=== PATIENT | female | born 1955 | race Hispanic/Latino ===

== ENCOUNTER → 2018-04-04 | Day surgery (SDC) | payer OTHER ==
[2018-04-03 13:42] LABS: BASOPHILS % 0.6 % (0.0-1.0); EOSINOPHILS # (AUTO) 0.2 (0.0-0.4); EOSINOPHILS % 3.4 % (0.0-6.0); HEMATOCRIT 25.2 % (34.2-44.1); HEMOGLOBIN 8.1 g/dL (12.0-16.0); LYMPHOCYTES # (AUTO) 1.6 (1.0-3.2); LYMPHOCYTES % 30.6 % (18.0-39.1); MEAN CORPUSCULAR HEMOGLOBIN 27.6 pg (28-32); MEAN CORPUSCULAR HGB CONC 32.1 g/dL (31-35); MEAN CORPUSCULAR VOLUME 85.7 fL (81-99); MONOCYTES # (AUTO) 0.6 (0.2-0.8); MONOCYTES % 12.1 % (4.4-11.3); NEUTROPHILS # (AUTO) 2.8 (2.1-6.9); NEUTROPHILS % 53.1 % (38.7-80.0); PLATELET COUNT 247 x10e3/uL (140-360); RED BLOOD COUNT 2.94 x10e6/uL (3.6-5.1); RED CELL DISTRIBUTION WIDTH 14.7 % (11.7-14.4)
[~2018-04-04] MED LIST: ARMOUR THYROID60 MG PO; IRON325 M1 PO; LIDOCAINE HCL 2% LOCAL INJ 5 ML SDV VIAL INJ ONE; LISINOPRIL10 MG PO; PROPOFOL IV EMULSION 10 MG/ML 50 ML VIAL ONE; SODIUM BICARBO650 MG PO; SYNTHROID50 MCG PO; VIT B12 INJ
--- OUTSIDE RECORDS SUMMARY | 2018-05-24 01:57 | XMS REPORT ---
Author Author [facility] Address Unknown Phone Unavailable Care Team Providers Care Cofounder Name Role Phone LEXA HERMAN Unavailable Unavailable MARÍA FREEMAN Unavailable Unavailable Problems This patient has no known problems. Allergies, Adverse Reactions, Alerts This patient has no known allergies or adverse reactions. Medications This patient has no known medications. Results Test Description Test Time Test Comments Text Results Atomic Results Result Comments CHEST SINGLE (PORTABLE) 2018-05-22 09:14:00 [place] [address] Patient Name: RENETTA PELAEZ MR #: [id number] : 1955 Age/Sex: 63/F Req #: [id number] Adm Physician: Ordered by: LEXA HERMAN MD Report #: [id number] Location: OR Room/Bed: Procedure: [id number] DX/CHEST SINGLE (PORTABLE) Exam Date: 10/08 Exam Time: 0845 REPORT STATUS: Signed PROCEDURE: A single AP view of the chest. COMPARISON: None. INDICATIONS: STATUS POST PORT-A-CATH PLACEMENT FINDINGS: Lines/ tubes: Left subclavian approach chest port noted with the tip of the catheter overlying the SVC. Lungs: The lungs are well inflated and clear. There is no evidence of pneumonia or pulmonary edema. Pleura: There is no pleural effusion or pneumothorax. Heart and mediastinum: The heart and the mediastinum are unremarkable. Bones: No acute bony abnormality. IMPRESSION: No acute cardiopulmonary disease. Ryder Mackey D.O. Dictated by: Ryder Mackey D.O. on 05/22/2018 at 9: 14 Electronically approved by: Ryder Mackey D.O. on 05/22/2018 at 9: 14 Dictated By: RYDER MACKEY DO 3 Transcribed By: SINAN on 05/22/18913 COPY TO: LEXA HERMAN MD CHEST 2 VIEWS 2018-05-21 17:55:00 [place] [address] Patient Name: RENETTA PELAEZ MR #: [id number] : 1955 Age/Sex: 63/F Req #: [id number] Adm Physician: Ordered by: LEXA HERMAN MD Report #: [id number] Location: OR Room/Bed: __ Procedure: [id number] DX/CHEST 2 VIEWS Exam Date: 05/21/18 Exam Time: 1741 REPORT STATUS: Signed Frontal and lateral views of the chest. HISTORY: Preadmit, Port-A-Cath COMPARISON: Chest radiograph April 19, 2016 DISCUSSION: Lungs: The lungs are well inflated. No evidence of a consolidative pneumonia or pulmonary alveolar edema. Pleura: No pleural effusion or pneumothorax. Heart and mediastinum: The cardiomediastinal silhouette appears unremarkable. Bones: No acute osseous lesion. Other: Metallic clips in the right upper quadrant of the abdomen are compatible with prior cholecystectomy. IMPRESSION: 1. No acute radiographic abnormality. 2. No significant interval change. Signed by: Dr. Anu Ortiz D.O., M.M.M. on 05/21/2018 5:57 PM Dictated By: ANU ORTIZ DO 56 Transcribed By: TUNDE on 05/21/181756 COPY TO: LEXA HERMAN MD OCCULT BLOOD, STOOL 2018-02-06 18:05:00 FECAL OCCULT BLOOD (BEAKER) (test rwix=567) Positive Negative OCCULT BLOOD, [id number] 18:05:00* Test Item Value Reference Range Comments FECAL OCCULT BLOOD (BEAKER) (test onuy=609) Positive Negative U/S, ABDOMINAL, [id number] 13:19:00Reason for Exam:->esrd/kidney transplant evaluationFINAL REPORT Abdominal ultrasound Clinical History: End-stage renal disease, kidney transplant evaluation Comparison: None. Findings: Sonographic evaluation of the the abdomen is performed. The visualized pancreas is unremarkable. The liver is normal in size measuring 11.1 cm in length. The hepatic parenchyma is homogeneous without evidence for focal abnormality. The main portal vein is patent with a diameter of 1.3 cm, within normal limits. The gallbladder there is surgically absent. There is no intra or extrahepatic biliary ductal dilatation. The common bile duct measures 7 mm. The spleen is normal in size measuring 11.0 cm in length and demonstrates an unremarkable sonographic appearance. The right kidney measures 11.0 x 4.9 x 4.8 cm with cortical thickness of 1.4 cm. Cortical echogenicity is mildly increased. The left kidney measures 8.1 x 3.8 x 3.2 cm with cortical thickness of 0.9 cm. Cortical echogenicity is mildly increased. There is no evidence for solid renal mass, hydronephrosis, or shadowing calculi. The visualized portions of the IVC and aorta are within normal limits. There is no ascites or pleural fluid visualized. Impression: Increased cortical echogenicity of the kidneys bilaterally which can be seen in setting of medical renal disease. Otherwise, unremarkable abdominal ultrasound examination. Signed: Mook Gallego Verified Date/Time: 01/31/2018 13: 19:59 Reading Location: [address] Ultrasound Reading Room , CHEST , 2 [id number] 12:45:00Reason for Exam:->esrd/kidney transplant evaluationFINAL REPORT CLINICAL HISTORY: esrd/kidney transplant evaluation TECHNIQUE: 2 views of the chest COMPARISON: None IMPRESSION: There are no focal infiltrates or effusions. The cardiomediastinal silhouette is within normal limits for size. The osseous structures appear intact. Signed: Yo Pace MDReport Verified Date/Time: 01/31/2018 12:45:00 Reading Location: [address] Consult Reading Room W/PLT COUNT & AUTO [id number] 08:16:00* Test Item Value Reference Range Comments WHITE BLOOD CELL COUNT (BEAKER) (test vkle=064) 5.5 K/ L 3.5-10.5 RED BLOOD CELL COUNT (BEAKER) (test wjak=723) 3.15 M/ L 3.93-5.22 HEMOGLOBIN (BEAKER) (test zaqn=220) 8.7 GM/DL 11.2-15.7 HEMATOCRIT (BEAKER) (test dpqb=799) 27.3 % 34.1-44.9 MEAN CORPUSCULAR VOLUME (BEAKER) (test xccx=983) 86.7 fL 79.4-94.8 MEAN CORPUSCULAR HEMOGLOBIN (BEAKER) (test tkco=657) 27.6 pg 25.6-32.2 MEAN CORPUSCULAR HEMOGLOBIN CONC (BEAKER) (test pmap=617) 31.9 GM/DL 32.2- 35.5 RED CELL DISTRIBUTION WIDTH (BEAKER) (test iewa=177) 15.0 % 11.7-14.4 PLATELET COUNT (BEAKER) (test vnch=372) 293 K/CU MM 150-450 MEAN PLATELET VOLUME (BEAKER) (test rrsa=097) 9.9 fL 9.4-12.3 NUCLEATED RED BLOOD CELLS (BEAKER) (test bdti=843) 0 /100 WBC 0-0 NEUTROPHILS RELATIVE PERCENT (BEAKER) (test hprc=890) 63 % LYMPHOCYTES RELATIVE PERCENT (BEAKER) (test mkqr=542) 21 % MONOCYTES RELATIVE PERCENT (BEAKER) (test oqfl=384) 10 % EOSINOPHILS RELATIVE PERCENT (BEAKER) (test dxls=472) 5 % BASOPHILS RELATIVE PERCENT (BEAKER) (test wbet=745) 1 % NEUTROPHILS ABSOLUTE COUNT (BEAKER) (test tcdm=006) 3.43 K/ L 1.56-6.13 LYMPHOCYTES ABSOLUTE COUNT (BEAKER) (test ttan=922) 1.16 K/ L 1.18-3.74 MONOCYTES ABSOLUTE COUNT (BEAKER) (test cbqp=480) 0.53 K/ L 0.24-0.36 EOSINOPHILS ABSOLUTE COUNT (BEAKER) (test cepk=017) 0.28 K/ L 0.04-0.36 BASOPHILS ABSOLUTE COUNT (BEAKER) (test pied=019) 0.04 K/ L 0.01-0.08 IMMATURE GRANULOCYTES-RELATIVE PERCENT (BEAKER) (test pryu=6742) 0 % 0-1 CYTOMEGALOVIRUS ANTIBODY, [id number] 08:35:00* Test Item Value Reference Range Comments CYTOMEGALOVIRUS IGG ANTIBODY (BEAKER) (test ifcr=548) Positive CYTOMEGALOVIRUS ANTIBODY, [id number] 08:35:00* Test Item Value Reference Range Comments CYTOMEGALOVIRUS IGM ANTIBODY (BEAKER) (test xjap=896) Negative EBV-VCA ANTIBODY, [id number] 08:35:00* Test Item Value Reference Range Comments TIGIST-MOLINA VCA IGG (BEAKER) (test ifmf=499) Positive EBV-VCA ANTIBODY, [id number] 08:35:00* Test Item Value Reference Range Comments TIGIST-MOLINA VCA IGM (BEAKER) (test jypm=020) Negative VARICELLA ZOSTER ANTIBODY, [id number] 08:15:00* Test Item Value Reference Range Comments VARICELLA ZOSTER IGG (AL) (BEAKER) (test wnqe=5999) 4.9 Al VARICELLA ZOSTER RESULT INTERPRETATIONS: <=0.8 Al Nonreactive: Presumed non-immune to VZV 0.9-1.0 Al Equivocal >=1.1 Al Reactive: Presumed immune to VZVURINE [id number] 10:23:00* Test Item Value Reference Range Comments CULTURE (BEAKER) (test nskp=3555) No growth [id number] 02:48:00* Test Item Value Reference Range Comments RPR SCREEN (BEAKER) (test mzbk=993) Nonreactive Nonreactive URINALYSIS W/ [id number] 15:37:00* Test Item Value Reference Range Comments COLOR (BEAKER) (test kdbs=396) Light Yellow CLARITY (BEAKER) (test mlco=564) Clear SPECIFIC GRAVITY UA (BEAKER) (test epbt=224) 1.008 1.001-1.035 PH UA (BEAKER) (test xqlq=875) 6.0 5.0-8.0 PROTEIN UA (BEAKER) (test foyc=603) 100 mg/dL Negative GLUCOSE UA (BEAKER) (test vnya=155) 100 mg/dL Negative KETONES UA (BEAKER) (test shyj=883) Negative Negative BILIRUBIN UA (BEAKER) (test obrn=707) Negative Negative BLOOD UA (BEAKER) (test dfvx=446) Trace Negative NITRITE UA (BEAKER) (test plyb=910) Negative Negative LEUKOCYTE ESTERASE UA (BEAKER) (test bddv=111) Negative Negative UROBILINOGEN UA (BEAKER) (test crdl=730) 0.2 mg/dL 0.2-1.0 RBC UA (BEAKER) (test sskd=807) 0 /HPF WBC UA (BEAKER) (test xpae=268) < /HPF MUCUS (BEAKER) (test rbrz=5189) Rare SOURCE(BEAKER) (test wdup=0073) HEMOGLOBIN [id number] 14:30:00* Test Item Value Reference Range Comments HEMOGLOBIN A1C (BEAKER) (test alba=094) 5.0 % 4.3-6.1 HEPATITIS B SURFACE [id number] 14:20:00* Test Item Value Reference Range Comments HEPATITIS B SURFACE ANTIBODY (BEAKER) (test iioe=149) < mIU/mL <8.0 HEPATITIS B SURFACE [id number] 14:16:00* Test Item Value Reference Range Comments HEPATITIS B SURFACE ANTIGEN (2) (BEAKER) (test waxd=2061) Nonreactive Nonreactive HEPATITIS B CORE ANTIBODY, [id number] 14:16:00* Test Item Value Reference Range Comments HEPATITIS B CORE IGM ANTIBODY (BEAKER) (test lsni=354) Nonreactive Nonreactive HEPATITIS C [id number] 14:16:00* Test Item Value Reference Range Comments HEPATITIS C ANTIBODY (BEAKER) (test ixma=859) Nonreactive Nonreactive HIV-1 ANTIGEN WITH HIV-1/2 [id number] 14:16:00* Test Item Value Reference Range Comments HIV-1 ANTIGEN WITH HIV 1\T\2 ANTIBODY (2) (BEAKER) (test uynu=8307) Nonreactive Nonreactive COMPREHENSIVE METABOLIC [id number] 14:06:00* Test Item Value Reference Range Comments TOTAL PROTEIN (BEAKER) (test focf=630) 7.0 gm/dL 6.0-8.3 ALBUMIN (BEAKER) (test rwua=2350) 3.8 g/dL 3.5-5.0 ALKALINE PHOSPHATASE (BEAKER) (test mewx=440) 389 U/L 40-150 BILIRUBIN TOTAL (BEAKER) (test khap=045) 0.4 mg/dL 0.2-1.2 SODIUM (BEAKER) (test agvl=113) 137 meq/L 136-145 POTASSIUM (BEAKER) (test qpdr=552) 3.9 meq/L 3.5-5.1 CHLORIDE (BEAKER) (test rixp=969) 113 meq/L 98-107 CO2 (BEAKER) (test decw=982) 16 meq/L 22-29 BLOOD UREA NITROGEN (BEAKER) (test waec=736) 41 mg/dL 7-21 CREATININE (BEAKER) (test uafy=831) 3.40 mg/dL 0.57-1.25 GLUCOSE RANDOM (BEAKER) (test wjpd=469) 92 mg/dL 70-105 CALCIUM (BEAKER) (test wfkl=317) 9.2 mg/dL 8.4-10.2 AST (SGOT) (BEAKER) (test izdk=991) 29 U/L 5-34 ALT (SGPT) (BEAKER) (test xddl=351) 29 U/L 6-55 EGFR (BEAKER) (test kpqt=6933) 14 mL/min/1.73 sq m ESTIMATED GFR IS NOT ACCURATE CREATININE CLEARANCE IN PREDICTING GLOMERULAR FILTRATION RATE. ESTIMATED GFR IS NOT APPLICABLE FOR DIALYSIS PATIENTS. PTH, [id number] 13:50:00* Test Item Value Reference Range Comments PARATHYROID HORMONE INTACT (BEAKER) (test umkx=437) 1239.1 pg/mL 8.5-72.5 URIC [id number] 13:50:00* Test Item Value Reference Range Comments URIC ACID (BEAKER) (test jbjh=895) 5.7 mg/dL 2.6-7.2 [id number] 13:50:00* Test Item Value Reference Range Comments PHOSPHORUS (BEAKER) (test ejgr=010) 4.5 mg/dL 2.3-4.7 LIPID [id number] 13:50:00* Test Item Value Reference Range Comments TRIGLYCERIDES (BEAKER) (test qgec=519) 107 mg/dL CHOLESTEROL (BEAKER) (test xhih=383) 151 mg/dL HDL CHOLESTEROL (BEAKER) (test rfca=214) 49 mg/dL LDL CHOLESTEROL CALCULATED (BEAKER) (test qkdm=815) 81 mg/dL Triglyceride Reference Range: Low Risk <150 Borderline 150-199 High Risk 200-499 Very High Risk >=500Cholesterol Reference Range: Low Risk <200 Borderline 200-239 High Risk >240HDL Cholesterol Reference Range: Low Risk >=60 High Risk <40LDL Cholesterol Reference Range: Optimal <100 Near Optimal 100-129 Borderline 130-159 High 160-189 Very High >=190 GAMMA GLUTAMYL TRANSFERASE (GGT)2018-01-23 13:50:00* Test Item Value Reference Range Comments GAMMA GLUTAMYL TRANSFERASE (BEAKER) (test podr=353) 162 U/L 9-64 LACTATE DEHYDROGENASE (LDH)2018-01-23 13:50:00* Test Item Value Reference Range Comments LACTATE DEHYDROGENASE (BEAKER) (test dcsw=633) 152 U/L 125-220 [id number] 13:24:00* Test Item Value Reference Range Comments PROTIME (BEAKER) (test zvcw=900) 14.6 seconds 11.7-14.7 INR (BEAKER) (test tbdv=062) 1.1 <=5.9 PARTIAL THROMBOPLASTIN TIME (BEAKER) (test mtsa=215) 33.1 seconds 22.5-36.0 RECOMMENDED COUMADIN/WARFARIN INR THERAPY RANGESSTANDARD DOSE: 2.0 - 3.0 Includes: PROPHYLAXIS for venous thrombosis, systemic embolization; TREATMENT for venous thrombosis and/or pulmonary embolus.HIGH RISK: Target INR is 2.5-3.5 for patients with mechanical heart valves.CBC W/PLT COUNT & AUTO [id number] 13:17:00* Test Item Value Reference Range Comments WHITE BLOOD CELL COUNT (BEAKER) (test ibfl=372) 4.8 K/ L 3.5-10.5 RED BLOOD CELL COUNT (BEAKER) (test ngmm=284) 3.46 M/ L 3.93-5.22 HEMOGLOBIN (BEAKER) (test rzjh=760) 9.4 GM/DL 11.2-15.7 HEMATOCRIT (BEAKER) (test lalp=239) 29.1 % 34.1-44.9 MEAN CORPUSCULAR VOLUME (BEAKER) (test zacy=543) 84.1 fL 79.4-94.8 MEAN CORPUSCULAR HEMOGLOBIN (BEAKER) (test oolb=556) 27.2 pg 25.6-32.2 MEAN CORPUSCULAR HEMOGLOBIN CONC (BEAKER) (test pudk=655) 32.3 GM/DL 32.2- 35.5 RED CELL DISTRIBUTION WIDTH (BEAKER) (test kksk=894) 15.1 % 11.7-14.4 PLATELET COUNT (BEAKER) (test brfx=282) 280 K/CU MM 150-450 MEAN PLATELET VOLUME (BEAKER) (test lpuf=663) 10.7 fL 9.4-12.3 NUCLEATED RED BLOOD CELLS (BEAKER) (test dpkn=809) 0 /100 WBC 0-0 NEUTROPHILS RELATIVE PERCENT (BEAKER) (test ykgz=956) 48 % LYMPHOCYTES RELATIVE PERCENT (BEAKER) (test bkjv=181) 35 % MONOCYTES RELATIVE PERCENT (BEAKER) (test lecs=528) 12 % EOSINOPHILS RELATIVE PERCENT (BEAKER) (test kihg=102) 4 % BASOPHILS RELATIVE PERCENT (BEAKER) (test gzpa=294) 1 % NEUTROPHILS ABSOLUTE COUNT (BEAKER) (test wgui=313) 2.28 K/ L 1.56-6.13 LYMPHOCYTES ABSOLUTE COUNT (BEAKER) (test kkxd=173) 1.69 K/ L 1.18-3.74 MONOCYTES ABSOLUTE COUNT (BEAKER) (test hkyg=513) 0.55 K/ L 0.24-0.36 EOSINOPHILS ABSOLUTE COUNT (BEAKER) (test vsxn=915) 0.20 K/ L 0.04-0.36 BASOPHILS ABSOLUTE COUNT (BEAKER) (test acxr=442) 0.05 K/ L 0.01-0.08 IMMATURE GRANULOCYTES-RELATIVE PERCENT (BEAKER) (test xvpe=5285) 0 % 0-1
--- OUTSIDE RECORDS SUMMARY | 2018-05-24 01:57 | XMS REPORT | Clinical Summary ---
Author Author SUMAN [facility] Address Unknown Phone Unavailable Care Team Providers Care Manager Business Management Name Role Phone PCP Unavailable Allergies Active Allergy Reactions Severity Noted Date Comments Cefazolin In Dextrose Hives 01/11/2018 (Iso-Os) Iodine And Iodide 01/11/2018 Containing Products Hydrocodone-Ibuprofen 01/11/2018 Current Medications Prescription Sig. Disp. Refills Start End Date Status Date levothyroxine (SYNTHROID, levothyroxine 50 mcg Active LEVOTHROID) 50 MCG tablet tablet lisinopril lisinopril 10 mg tablet Active (PRINIVIL,ZESTRIL) 10 MG tablet SODIUM BICARBONATE ORAL Take 20 g by mouth 2 Active (two) times daily . cyanocobalamin (VITAMIN Inject 1,000 mcg Active B-12) 1,000 mcg/mL intramuscularly every 30 injection (thirty) days . Active Problems Problem Noted Date Pre-transplant evaluation for chronic kidney disease 01/23/2018 Encounters Date Type Specialty Care Team Description 2018 Orders Only Transplant Hiren Rosenthal RN Pre-transplant evaluation for end stage renal disease (Primary Dx);ESRD (end stage renal disease) (HCC);Abnormal blood chemistry 02/14/2018 Committee Transplant Hiern Rosenthal RN Review 02/09/2018 Committee Transplant Marilyn Shepherd Review 02/06/2018 Evaluation Transplant Neyda Moya MD 02/06/2018 Ancillary Lab Linda Rogers MD Orders 02/06/2018 Ancillary Lab Linda Rogers MD Orders 02/06/2018 Orders Only Transplant Hepatology Edwin Rodriguez ESRD (end stage renal disease) (HCC);Pre-transplant evaluation for end stage renal disease;Anemia of chronic renal failure, unspecified CKD stage;Abnormal blood chemistry 02/06/2018 Orders Only Transplant Hiren Rosenthal RN ESRD (end stage renal disease) ([facility]) (Primary Dx);Pre-transplant evaluation for end stage renal disease;Anemia of chronic renal failure, unspecified CKD stage;Abnormal blood chemistry 01/31/2018 Hospital Radiology Linda Rogers MD End stage renal disease Encounter ([facility]) (Primary Dx) 01/31/2018 Hospital Radiology Linda Rogers MD ESRD (end stage renal Encounter disease) ([facility]) 01/31/2018 [facility] Cardiology Linda Rogers MD ESRD (end stage renal Encounter disease) ([facility]) 01/31/2018 [facility] Cardiology Linda Rogers MD ESRD (end stage renal Encounter disease) ([facility]) 01/31/2018 Orders Only Lab Linda Rogers MD ESRD (end stage renal disease) ([facility]) 01/31/2018 Orders Only Transplant Mary Cruz RN Pre-transplant evaluation for chronic kidney disease (Primary Dx) 01/31/2018 Orders Only Transplant Linda Rogers MD ESRD (end stage renal disease) ([facility]);Pre-transplant evaluation for chronic kidney disease 01/24/2018 Telephone Transplant Marilyn Shepherd Appointment 01/23/2018 Evaluation Transplant Linda Rogers MD Pre- transplant evaluation Neyda Moya MD for chronic kidney disease (Primary Dx) 01/23/2018 Orders Only Transplant Hepatology Linda Rogers MD ESRD (end stage renal disease) ([facility]) 01/23/2018 Office Visit Transplant Linda Rogers MD Pre- transplant evaluation Mary Cruz RN for chronic kidney disease 01/23/2018 Orders Only Transplant Hiren Rosenthal RN ESRD (end stage renal disease) ([facility]) (Primary Dx) 01/18/2018 Telephone Transplant Chelsea Keller Kidney Transplant Pre-evaluation 01/11/2018 Abstract Transplant Chelsea Keller 01/11/2018 Abstract Transplant Chelsea Keller 01/02/2018 Abstract Transplant Chelsea Keller 12/29/2017 Abstract Transplant Chelsea Keller 12/22/2017 Abstract Transplant Chelsea Keller 12/06/2017 Telephone Transplant Chelsea Keller Kidney Transplant Pre-evaluation 11/03/2017 Abstract Transplant Chelsea Keller 08/28/2017 Telephone Transplant Chelsea Keller Kidney Transplant Pre-evaluation after 04/03/2017 Family History Medical History Relation Name Comments Other Father of accident No Known Problem Mother No Known Problem Sister No Known Problem Sister Hypertension Son No Known Problem Son Relation Name Status Comments Brother Father Mother Alive Sister Alive Sister Alive Son Alive Son Alive Social History Tobacco Use Types Packs/Day Years Used Date Former Smoker Smokeless Tobacco: Never Used Comments: smoked at age 21 to 24 Alcohol Use Drinks/Week oz/Week Comments No Sex Assigned at Date Recorded Not on file Last Filed Vital Signs Vital Sign Reading Time Taken Blood Pressure 132/52 01/31/2018 9:35 AM CDT Pulse 96 01/31/2018 9:35 AM CDT Temperature 36.6 C (97.8 F) 01/23/2018 2:56 PM CDT Respiratory Rate 18 01/31/2018 9:35 AM CDT Oxygen Saturation - - Inhaled Oxygen - - Concentration Weight 51.9 kg (114 lb 6.4 oz) 02/06/2018 12:37 PM CDT Height 154 cm (5' 0.63") 02/06/2018 12:37 PM CDT Body Mass Index 21.88 02/06/2018 12:37 PM CDT Plan of Treatment Health Maintenance Due Date Last Done Comments INFLUENZA VACCINE 05/21/2018 Results * Occult blood, stool (02/06/2018 12:58 PM) Only the most recent of 2 results within the time period is included. Component Value Ref Range Occult blood Positive (A) Negative Specimen Performing Laboratory [place] [address] * TRANSFUSION SERVICE REPORT - SCAN (02/01/2018 5:54 PM) Only the most recent of 2 results within the time period is included. * ECHOCARDIOGRAM REPORT - SCAN (02/01/2018 7:20 AM) Only the most recent of 2 results within the time period is included. * US abdomen complete (01/31/2018 12:25 PM) Specimen Performing Laboratory [employer] Narrative FINAL REPORT Abdominal ultrasound Clinical History:End-stage renal disease, kidney transplant evaluation Comparison: None. [...] unremarkable abdominal ultrasound examination. Signed: Mook Gallego MD Report Verified Date/Time:01/31/2018 13:19:59 Reading Location: [address] Ultrasound Reading Room Procedure Note Interface, External Ris In - 01/31/2018 1:22 PM CDT FINAL REPORT Abdominal ultrasound Clinical History: End-stage renal [...] unremarkable abdominal ultrasound examination. Signed: Mook Gallego MD Report Verified Date/Time: 01/31/2018 13:19:59 Reading Location: [facility] [id number] Ultrasound Reading Room * XR chest 2 views (01/31/2018 11:44 AM) Specimen Performing Laboratory [facility] Narrative FINAL REPORT CLINICAL HISTORY: esrd/kidney transplant evaluation TECHNIQUE: 2 views of the chest COMPARISON: None IMPRESSION: There are no focal infiltrates or effusions. The cardiomediastinal silhouette is within normal limits for size. The osseous structures appear intact. Signed: Yo Osorio MD Report Verified Date/Time:01/31/2018 12:45:00 Reading Location: [facility] C013 Consult Reading Room Procedure Note Interface, External Ris In - 01/31/2018 12:47 PM CDT FINAL REPORT CLINICAL HISTORY: esrd/kidney transplant evaluation TECHNIQUE: 2 views of the chest COMPARISON: None IMPRESSION: There are no focal infiltrates or effusions. The cardiomediastinal silhouette is within normal limits for size. The osseous structures appear intact. Signed: Yo Osorio MD Report Verified Date/Time: 01/31/2018 12:45:00 Reading Location: [facility] C013 Consult Reading Room * Stress Echo With Tracing (01/31/2018 8:53 AM) Component Value Ref Range Ejection Fraction Est EF of >70% Specimen Performing Laboratory [facility] ECHO HEARTLAB [facility] Narrative Stress Echocardiography Report Demographics Patient Name RENETTA GARCIA Date of Study01/31/2018 [id number] Gender Female Visit Number [id number] Race Unknown [id number] Number Number Date of Birth1955 Referring Ken Pizarro Physician Age62 year(s) Bilingual Interpreter Dianne Peres Interpreting Marcella Machado, Physician Fellow BILL Cheema Procedure Type of Study Stress procedure:STRESS(TMT)ECHO W/TMT TRACING (Routine) Indications:CAD. Clinical History CKD, HLD, HTN, HYPOTHYROID Contrast Medium: Definity. Amount - 6 ml Height: 60 inches Weight: 49.9 kg (110 lbs) BSA: 1.45 m^2 BMI: 21.48 kg/m^2 HR: 82 bpm BP: 131/71 mmHg Rest ECG Normal sinus rhythm Standing HR:81 bpmStanding BP:131/71 mmHg Pre-Stress Physical Exam Cardiac auscultation remarkable for normal heart sounds . Stress Stress Type: Pharmacologic Peak HR: 142 bpmHR Response: See below Peak BP: 170/51 mmHgBP Response : See below Predicted HR: 156 bpm HR BP Product : 26888 % of predicted HR: 91 Max Infusion : 20 mcg/kg/min Test Duration: 16:31 min Reason for Termination: Target heart rate Results Global LVEF (rest): Normal (LVEF >50%) Global LVEF (stress): Hyperkinetic (LVEF >70%) ECG No significant ST changes. Arrhythmias No significant rhythm abnormality during stress or recovery. Symptoms No symptoms during stress test. Stress Protocol: Pharmacologic - Dobutamine +--------+------+------+ +------+-----+--------+--+--------+----+------ + !Stage # !Time!Dosage!Other !Dosage!Heart!Blood !CP!Pain !Pain!Pain! !!!!Medication!!Rate ! Pressure!!Location!Type!Action! +--------+------+------+ +------+-----+--------+--+--------+----+------ + !1.0 !3.017 !10.00 !!!125!165/53 !!!!! +--------+------+------+ +------+-----+--------+--+--------+----+------ + !2.0 !1.467 !20.00 !!!142!170/51 !!!!! +--------+------+------+ +------+-----+--------+--+--------+----+------ + !Recovery!16.517!0.00!!!97 !132/52! !!!! +--------+------+------+ +------+-----+--------+--+--------+----+------ + Summary Indications: Pre-surgical evaluation for renal transplant Procedure done: Dobutamine stress echocardiogram. Complications: None Medications: Dobutamine infusion with peak rate of 20 mg/kg/min. ECG: The resting heart rate was 81 bpm. Resting electrocardiogram showed normal sinus rhythm with no ischemic ECG changes. The heart rate increased to 142 bpm which corresponded to 91% maximum predicted heart rate. There were no ischemic ECG changes noted. There were no arrhythmias noted. The blood pressure at baseline was 131/71 mm Hg and nikkie to 170/51 at peak stress. The patient did not develop any significant symptoms. Echocardiogram: Resting echocardiogram showed normal LV systolic function, estimated LVEF of 55%. Normal wall motion. At peak stress, the echocardiogram showed appropriate LV augmentation. Estimated LVEF of >70%. Normal wall motion. Conclusion: Stress was negative for symptoms, ischemic ECG and echocardiogram changes at a diagnostic level of stress. Previous Study No prior studies available for comparison. Signature Procedure Note Interface, External Ris In - 01/31/2018 10:24 PM CDT Stress Echocardiography Report Demographics Patient Name RENETTA GARCIA Date of Study 01/31/2018 Gender Female Visit Number [id number] Race Unknown Room Number Number Date of 1955 Referring Ken Pizarro Physician Age 62 year(s) Bilingual Interpreter Dianne Peres Interpreting Marcella Machado Physician Fellow BILL Cheema Procedure Type of Study Stress procedure:STRESS(TMT)ECHO W/TMT TRACING (Routine) Indications:CAD. Clinical History CKD, HLD, HTN, HYPOTHYROID Contrast Medium: Definity. Amount - 6 ml Height: 60 inches Weight: 49.9 kg (110 lbs) BSA: 1.45 m^2 BMI: 21.48 kg/m^2 HR: 82 bpm BP: 131/71 mmHg Rest ECG Normal sinus rhythm Standing HR:81 bpmStanding BP:131/71 mmHg Pre-Stress Physical Exam Cardiac auscultation remarkable for normal heart sounds . Stress Stress Type: Pharmacologic Peak HR: 142 bpm HR Response: See below Peak BP: 170/51 mmHg BP Response: See below Predicted HR: 156 bpm HR BP Product: 89056 % of predicted HR: 91 Max Infusion: 20 mcg/kg/min Test Duration: 16:31 min Reason for Termination: Target heart rate Results Global LVEF (rest): Normal (LVEF >50%) Global LVEF (stress): Hyperkinetic (LVEF >70%) ECG No significant ST changes. Arrhythmias No significant rhythm abnormality during stress or recovery. Symptoms No symptoms during stress test. Stress Protocol: Pharmacologic - Dobutamine +--------+------+------+ +------+-----+--------+--+--------+----+----- -+ !Stage # !Time !Dosage!Other !Dosage!Heart!Blood !CP!Pain !Pain!Pain ! ! ! ! !Medication! !Rate !Pressure! !Location!Type!Action ! +--------+------+------+ +------+-----+--------+--+--------+----+----- -+ !1.0 !3.017 !10.00 ! ! !125 !165/53 ! ! ! ! ! +--------+------+------+ +------+-----+--------+--+--------+----+----- -+ !2.0 !1.467 !20.00 ! ! !142 !170/51 ! ! ! ! ! +--------+------+------+ +------+-----+--------+--+--------+----+----- -+ !Recovery!16.517!0.00 ! ! !97 !132/52 ! ! ! ! ! +--------+------+------+ +------+-----+--------+--+--------+----+----- -+ Summary Indications: Pre-surgical evaluation for renal transplant Procedure done: Dobutamine stress echocardiogram. Complications: None Medications: Dobutamine infusion with peak rate of 20 mg/kg/min. ECG: The resting heart rate was 81 bpm. Resting electrocardiogram showed normal sinus rhythm with no ischemic ECG changes. The heart rate increased to 142 bpm which corresponded to 91% maximum predicted heart rate. There were no ischemic ECG changes noted. There were no arrhythmias noted. The blood pressure at baseline was 131/71 mm Hg and nikkie to 170/51 at peak stress. The patient did not develop any significant symptoms. Echocardiogram: Resting echocardiogram showed normal LV systolic function, estimated LVEF of 55%. Normal wall motion. At peak stress, the echocardiogram showed appropriate LV augmentation. Estimated LVEF of >70%. Normal wall motion. Conclusion: Stress was negative for symptoms, ischemic ECG and echocardiogram changes at a diagnostic level of stress. Previous Study No prior studies available for comparison. Signature * 2D Echo W/Doppler(CW/PW/Color) (01/31/2018 8:26 AM) Component Value Ref Range Ejection Fraction Specimen Performing Laboratory [facility] ECHO HEARTLAB [facility] Narrative Transthoracic Echocardiography Report (TTE) Demographics Patient Name RENETTA GARCIA Date of Study 01/31/2018 [id number] Gender Female Visit Number [id number] Race Unknown [id number] Number Number Date of Birth1955 Referring Physician Ken Pizarro Age62 year(s) Bilingual Interpreter Dianne Peres [facility]uc[place], MD Physician Fellow BILL Cheema Procedure Type of Study TTE procedure:2DECHO W DOPPLER(CW/PW/COLOR) (Routine) Indications:Acute Chest Pain/ Suspected CAD. Clinical History CKD, HLD, HTN, HYPOTHYROID Height: 60 inches Weight: 49.9 kg (110 lbs) BSA: 1.45 m^2 BMI: 21.48 kg/m^2 HR: 82 bpm BP: 131/77 mmHg Summary 1. The left ventricle is chamber size (by vol index) is normal. No evidence of LV hypertrophy. All of the LV segments contract normally. LVEF by Mcneill's method of disk assessment is normal (60%). Grade 1 diastolic dysfunction (impaired relaxation and low-normal LA pressure). LA size is mildly enlarged (35-41 ml/m2). 2. The right ventricular chamber size and systolic function are within normal limits. RA size is normal. Estimated peak systolic PA pressure is 35-40 mmHg. 3. No significant valvular abnormalities. Previous Study No prior exam available for comparison. Signature Findings Left Ventricle The left ventricle is chamber size (by vol index ) is normal (female - LVED vol - 29-61ml/m2). No evidence of LV hypertrophy. All of the LV segments contract normally . Global LV systolic function normal . LVEF by Mcneill's method of disk assessment is normal (60%) . Grade 1 diastolic dysfunction ( impaired relaxation and low-normal LA pressure). Left AtriumLA size is mildly enlarged (35-41 ml/m2) . Right VentricleThe right ventricular chamber size and systolic function are within normal limits. Right Atrium RA size is normal. Aortic Valve Mild AoV cusp thickening. Mild AoV cusp calcification. No evidence of aortic regurgitation. Normal tri-leaflet Aortic Valve. Mitral Valve Mild MV leaflet thickening. Trace mitral regurgitation. Mild mitral annular calcification. Tricuspid ValveA trace of tricuspid regurgitation. Estimated peak systolic PA pressure is 35-40 mmHg . Peak systolic pressure may be underestimated; partial TR signal. Pulmonic Valve PV is not well visualized; function appears normal by Doppler visualized. AortaAortic root size (SInus of Valsalva diameter) is normal . PericardiumNo significant pericardial effusion is visualized. IVC/SVC/PA/PV/PleuralThe estimated RA pressure by IVC dynamics 5-10mmHg . Chambers/Structures Left Atrium LA Volume: 58.14 ml LA Area: 16.71 cm^2 LA Vol. Index: 40 ml/m^2 Left Ventricle LVIDd: 3.99 cm LVIDs: 2.42 cm LV Septum Diastolic: 1 cm LV PW Diastolic: 0.73 cmLV FS: 39.4 % LVEDV Mcneill's:85.4 ml LVESV Mcneill's:31.5 ml LVEDVI: 59 ml/m^2 LVEF Mcneill's: 63.1 %LVESVI: 22 ml/m^2 LVOT Diameter: 1.87 cm Doppler/Quantitative Measurements Mitral Valve MV Peak E-Wave: 1.12 m/sMV Peak A-Wave: 1.14 m/s E/A Ratio: 0.99 Peak Gradient: 5.06 mmHg MV Gomez. Peak: Tissue Doppler E' Lateral Velocity: 0.12 m/s E/E': 9.31 Aortic Valve Peak Velocity: 1.88 m/sMean Velocity: 1.08 m/s Peak Gradient: 14.1 mmHg Mean Gradient: 5.75 mmHg AV Area (continuity): 1.99 cm^2 AV VTI: 33.92 cm AV DVI: 0.72 LVOT Peak Velocity: 1.29 m/s Peak Gradient: 6.66 mmHg Mean Velocity: 0.84 m/s Mean Gradient: 3.31 mmHg LVOT Diameter: 1.87 cmLVOT VTI: 24.59 cm LVOT Area: 2.75 cm^2LVOT SV:67.5 ml LVOT CO: 5.54 l/min LVOT CI: 3.82 l/min/m^2 Tricuspid Valve TR Velocity: 2.83 m/s TR Gradient: 32.01 mmHg Procedure Note Interface, External Ris In - 01/31/2018 12:58 PM CDT Transthoracic Echocardiography Report (TTE) Demographics Patient Name RENETTA GARCIA Date of Study 01/31/2018 Gender Female Visit Number [id number] Race Unknown Room Number Number Date of 1955 Referring Physician Ken Pizarro Age 62 year(s) Bilingual Interpreter Dianne Peres Interpreting Bassam Zeng MD Physician Fellow BILL Cheema Procedure Type of Study TTE procedure:2DECHO W DOPPLER(CW/PW/COLOR) (Routine) Indications:Acute Chest Pain/ Suspected CAD. Clinical History CKD, HLD, HTN, HYPOTHYROID Height: 60 inches Weight: 49.9 kg (110 lbs) BSA: 1.45 m^2 BMI: 21.48 kg/m^2 HR: 82 bpm BP: 131/77 mmHg Summary 1. The left ventricle is chamber size (by vol index) is normal. No evidence of LV hypertrophy. All of the LV segments contract normally. LVEF by Mcneill's method of disk assessment is normal (60%). Grade 1 diastolic dysfunction (impaired relaxation and low-normal LA pressure). LA size is mildly enlarged (35-41 ml/m2). 2. The right ventricular chamber size and systolic function are within normal limits. RA size is normal. Estimated peak systolic PA pressure is 35-40 mmHg. 3. No significant valvular abnormalities. Previous Study No prior exam available for comparison. Signature Findings Left Ventricle The left ventricle is chamber size (by vol index) is normal (female - LVED vol - 29-61ml/m2). No evidence of LV hypertrophy. All of the LV segments contract normally . Global LV systolic function normal . LVEF by Mcneill's method of disk assessment is normal (60%) . Grade 1 diastolic dysfunction (impaired relaxation and low-normal LA pressure). Left Atrium LA size is mildly enlarged (35-41 ml/m2) . Right Ventricle The right ventricular chamber size and systolic function are within normal limits. Right Atrium RA size is normal. Aortic Valve Mild AoV cusp thickening. Mild AoV cusp calcification. No evidence of aortic regurgitation. Normal tri-leaflet Aortic Valve. Mitral Valve Mild MV leaflet thickening. Trace mitral regurgitation. Mild mitral annular calcification. Tricuspid Valve A trace of tricuspid regurgitation. Estimated peak systolic PA pressure is 35-40 mmHg . Peak systolic pressure may be underestimated; partial TR signal. Pulmonic Valve PV is not well visualized; function appears normal by Doppler visualized. Aorta Aortic root size (SInus of Valsalva diameter) is normal . Pericardium No significant pericardial effusion is visualized. IVC/SVC/PA/PV/Pleural The estimated RA pressure by IVC dynamics 5-10mmHg . Chambers/Structures Left Atrium LA Volume: 58.14 ml LA Area: 16.71 cm^2 LA Vol. Index: 40 ml/m^2 Left Ventricle LVIDd: 3.99 cm LVIDs: 2.42 cm LV Septum Diastolic: 1 cm LV PW Diastolic: 0.73 cm LV FS: 39.4 % LVEDV Mcneill's:85.4 ml LVESV Mcneill's:31.5 ml LVEDVI: 59 ml/m^2 LVEF Mcneill's: 63.1 % LVESVI: 22 ml/m^2 LVOT Diameter: 1.87 cm Doppler/Quantitative Measurements Mitral Valve MV Peak E-Wave: 1.12 m/s MV Peak A-Wave: 1.14 m/s E/A Ratio: 0.99 Peak Gradient: 5.06 mmHg MV Gomez. Peak: Tissue Doppler E' Lateral Velocity: 0.12 m/s E/E': 9.31 Aortic Valve Peak Velocity: 1.88 m/s Mean Velocity: 1.08 m/s Peak Gradient: 14.1 mmHg Mean Gradient: 5.75 mmHg AV Area (continuity): 1.99 cm^2 AV VTI: 33.92 cm AV DVI: 0.72 LVOT Peak Velocity: 1.29 m/s Peak Gradient: 6.66 mmHg Mean Velocity: 0.84 m/s Mean Gradient: 3.31 mmHg LVOT Diameter: 1.87 cm LVOT VTI: 24.59 cm LVOT Area: 2.75 cm^2 LVOT SV:67.5 ml LVOT CO: 5.54 l/min LVOT CI: 3.82 l/min/m^2 Tricuspid Valve TR Velocity: 2.83 m/s TR Gradient: 32.01 mmHg * ECG 12 lead (01/31/2018 8:21 AM) Specimen Performing Laboratory [facility] Narrative Ventricular Rate 82 BPM Atrial Rate 82 BPM P-R Interval 152 ms QRS Duration 84 ms Q-T Interval 376 ms QTC Calculation(Bazett) 439 ms P [place] 66 degrees R [place] 53 degrees T [place] 57 degrees Normal sinus rhythm Normal ECG No previous ECGs available Confirmed by MD LAND JORGE ([id number]) on 01/31/2018 4:25:10 PM Procedure Note Interface, External Ris In - 01/31/2018 4:25 PM CDT Ventricular Rate 82 BPM Atrial Rate 82 BPM P-R Interval 152 ms QRS Duration 84 ms Q-T Interval 376 ms QTC Calculation(Bazett) 439 ms P [place] 66 degrees R [place] 53 degrees T [place] 57 degrees Normal sinus rhythm Normal ECG No previous ECGs available Confirmed by MD LAND JORGE ([id number]) on 01/31/2018 4:25:10 PM * CBC with platelet count + automated diff (01/31/2018 8:12 AM) Only the most recent of 2 results within the time period is included. Component Value Ref Range WBC 5.5 3.5 - 10.5 K/ L RBC 3.15 (L) 3.93 - 5.22 M/ L Hemoglobin 8.7 (L) 11.2 - 15.7 GM/DL Hematocrit 27.3 (L) 34.1 - 44.9 % MCV 86.7 79.4 - 94.8 fL MCH 27.6 25.6 - 32.2 pg MCHC 31.9 (L) 32.2 - 35.5 GM/DL RDW 15.0 (H) 11.7 - 14.4 % Platelets 293 150 - 450 K/CU MM MPV 9.9 9.4 - 12.3 fL nRBC 0 0 - 0 /100 WBC % Neutros 63 % % Lymphs 21 % % Monos 10 % % Eos 5 % % Baso 1 % # Neutros 3.43 1.56 - 6.13 K/ L # Lymphs 1.16 (L) 1.18 - 3.74 K/ L # Monos 0.53 (H) 0.24 - 0.36 K/ L # Eos 0.28 0.04 - 0.36 K/ L # Baso 0.04 0.01 - 0.08 K/ L Immature 0 0 - 1 % Granulocytes-Relative Specimen Performing [place] [address] * CBC with platelet count + automated diff (01/31/2018 8:12 AM) Only the most recent of 2 results within the time period is included. Specimen Performing Laboratory Blood [facility]) Narrative The following orders were created for panel order CBC with platelet count + automated diff. Procedure Abnormality Status --------- - ------ CBC with platelet count ...[[id number]]AbnormalFinal result Please view results for these tests on the individual orders. * Blood typing, automated (01/31/2018 7:58 AM) Component Value Ref Range ABO/RH AUTOMATED (BEAKER) O POSITIVE Specimen Performing Laboratory Blood [address] [address] * Urinalysis, Routine (01/23/2018 12:30 PM) Component Value Ref Range Color, UA Light Yellow Clarity, UA Clear Specific [place], UA 1.008 1.001 - 1.035 pH, UA 6.0 5.0 - 8.0 Protein, UA 100 mg/dL (A) Negative Glucose, UA 100 mg/dL (A) Negative Ketones, UA Negative Negative Bilirubin, UA Negative Negative Blood, UA Trace (A) Negative Nitrite, UA Negative Negative Leukocytes, UA Negative Negative Urobilinogen, UA 0.2 0.2 - 1.0 mg/dL RBC, UA 0 /HPF WBC, UA <1 /HPF Mucus Rare Specimen Source Specimen Performing Laboratory Urine [address] [place] [address] * Urine Culture (01/23/2018 12:30 PM) Component Value Ref Range Result No growth Specimen Performing Laboratory Urine - Urine, [facility] Unspecified Source [address] [place] [address] * Flow PRA Class II with reflex to Antibody Specificity (01/23/2018 12:28 PM) Component Value Ref Range Flow Class II Percent 20 Positive Flow Class Report Comments Specimen Performing Laboratory Blood [facility] [place], MS: [id number], CLIA#[id number] CAP#[id number] [place] [address] * Flow PRA Class I with reflex to Antibody Specificity (01/23/2018 12:28 PM) Component Value Ref Range Flow Class I Percent 53 Positive Flow Class Report Comments Specimen Performing Laboratory Blood [facility], MS: [id number], CLIA#[id number] CAP#[id number] [place] [address] * AB Specificity Class II (01/23/2018 12:28 PM) Component Value Ref Range AB Specificity Class II NO CLASS II ANTIBODY DETECTED WITH MFIs > 4000 AB Specificity Titr Class Report Specimen Performing Laboratory Blood [facility], MS: [id number], CLIA#[id number] CAP#[id number] [place] [address] Narrative Disclaimer: This test was developed and its performance characteristics determined by the [facility]. It has not been cleared or approved by the U.S. Food and Drug Administration. The FDA has determined that such clearance or approval is not necessary. This test is used for clinical purposes. It should not be regarded as investigational or for research. This laboratory is certified under the Clinical Laboratory Improvement Amendments of 1988 (CLIA-88) as qualified to perform high complexity clinical laboratory testing. * AB Specificity Class I (01/23/2018 12:28 PM) Component Value Ref Range AB Specificity Class I NO CLASS I ANTIBODY DETECTED WITH MFIs > 4000 AB Specificity Titr Class Report Specimen Performing Laboratory Blood [facility], MS: [id number], CLIA#[id number] CAP#[id number] [place] [address] Narrative Disclaimer: This test was developed and its performance characteristics determined by the [facility]. It has not been cleared or approved by the U.S. Food and Drug Administration. The FDA has determined that such clearance or approval is not necessary. This test is used for clinical purposes. It should not be regarded as investigational or for research. This laboratory is certified under the Clinical Laboratory Improvement Amendments of 1988 (CLIA-88) as qualified to perform high complexity clinical laboratory testing. * Type and Screen, Automated (01/23/2018 12:28 PM) Component Value Ref Range ABO/RH AUTOMATED (BEAKER) O POSITIVE Ab Scrn NEGATIVE Specimen Performing Laboratory [address] [address] * PT/aPTT (01/23/2018 12:28 PM) Component Value Ref Range Protime 14.6 11.7 - 14.7 seconds INR 1.1 <=5.9 PTT 33.1 22.5 - 36.0 seconds Specimen Performing Laboratory [address] [address] Narrative RECOMMENDED COUMADIN/WARFARIN INR THERAPY RANGES STANDARD DOSE: 2.0 - 3.0 Includes: PROPHYLAXIS for venous thrombosis, systemic embolization; TREATMENT for venous thrombosis and/or pulmonary embolus. HIGH RISK: Target INR is 2.5-3.5 for patients with mechanical heart valves. * HIV-1 Antigen with HIV-1/2 Antibody (01/23/2018 12:28 PM) Component Value Ref Range HIV-1 Antigen with HIV Nonreactive Nonreactive 1&2 Antibody Specimen Performing Laboratory [address] [address] * Hepatitis C Antibody (01/23/2018 12:28 PM) Component Value Ref Range Hepatitis C Ab Nonreactive Nonreactive Specimen Performing Laboratory [address] [address] * Hepatitis B core antibody, IgM (01/23/2018 12:28 PM) Component Value Ref Range Hep B C IgM Nonreactive Nonreactive Specimen Performing Laboratory [address] [address] * Hepatitis B surface antibody (01/23/2018 12:28 PM) Component Value Ref Range Hep B S Ab <8.0 <8.0 mIU/mL Specimen Performing Laboratory Blood [facility] [address] * Hepatitis B surface antigen (01/23/2018 12:28 PM) Component Value Ref Range hepatitis B Surface Ag Nonreactive Nonreactive Specimen Performing Laboratory Blood [address] [address] * Direct AHG (NIDIA)/Direct Tad (01/23/2018 12:28 PM) Component Value Ref Range Direct AHG-IGG NEGATIVE Direct AHG-C3B, C3D NEGATVIE Specimen Performing Laboratory Blood [address] [address] * Hemoglobin A1c (01/23/2018 12:28 PM) Component Value Ref Range Hemoglobin A1C 5.0 4.3 - 6.1 % Specimen Performing Laboratory Blood [address] [address] * HLA Typing CII (01/23/2018 12:27 PM) Component Value Ref Range HLA-DR AG1 04 HLA-DR AG2 11 HLA-DR AG3-1 HLA-DR AG3-2 52 HLA-DR AG4-1 53 HLA-DR AG4-2 HLA-DR AG5-1 HLA-DR AG5-2 HLA-DQA1 AG 1-1 03 HLA-DQA1 AG 1-2 05 HLA-DQB1 AG 1-1 8 HLA-DQB1 AG 1-2 7 HLA-DPA1 AG 1-1 01 HLA-DPA1 AG 1-2 02 HLA-DPB1 AG 1-1 04:02 HLA-DPB1 AG 1-2 10:01 HLA-AG Notes HLA-AG Report Comments Specimen Performing Laboratory Blood [facility] [place], MS: [id number], CLIA#[id number] CAP#[id number] [place] [address] * HLA Typing CI (01/23/2018 12:27 PM) Component Value Ref Range HLA-A AG1 24 HLA-A AG2 31 HLA-B AG1 27 HLA-B AG2 35 HLA-C AG1 2 HLA-C AG2 12 HLA-B BW1 4 HLA-B BW2 6 HLA-AG Notes HLA-AG Report Comments Specimen Performing Laboratory Blood [facility] [place], MS: [id number], CLIA#[id number] CAP#[id number] [place] [address] * T Spot TB (01/23/2018 12:27 PM) Component Value Ref Range T-Spot TB Negative Neg Ctrl Spot Count 0 Panel A Spot 0 Panel B Spot [address] 0 Scan Result 0 Specimen Performing Laboratory Blood [facility] [address] [facility] [address], [address] [place] [address] * Cytomegalovirus antibody, IgM (01/23/2018 12:27 PM) Component Value Ref Range CMV IgM Negative Specimen [place] [address] * EBV-VCA antibody, IgM (01/23/2018 12:27 PM) Component Value Ref Range EBV VCA IgM Negative Specimen [place] [address] * EBV-VCA antibody, IgG (01/23/2018 12:27 PM) Component Value Ref Range EBV VCA IgG Positive Specimen [place] [address] * RPR (01/23/2018 12:27 PM) Component Value Ref Range RPR Nonreactive Nonreactive Specimen [place]forming [place] [address] * Cytomegalovirus antibody, IgG (01/23/2018 12:27 PM) Component Value Ref Range CMV IgG Positive Specimen [place] [address] * Varicella Zoster Antibody, IgG (01/23/2018 12:27 PM) Component Value Ref Range Varicella IgG 4.9 Al Specimen [place]forming [place] [address] Narrative VARICELLA ZOSTER RESULT INTERPRETATIONS: <=0.8 AlNonreactive:Presumed non-immune to VZV 0.9-1.0 AlEquivocal >=1.1 AlReactive:Presumed immune to VZV * Uric Acid (01/23/2018 12:27 PM) Component Value Ref Range Uric Acid 5.7 2.6 - 7.2 mg/dL Specimen Performing [place] [address] * Phosphorus (01/23/2018 12:27 PM) Component Value Ref Range Phosphorus 4.5 2.3 - 4.7 mg/dL Specimen Performing Laboratory Blood [address] [address] * PTH, Intact (01/23/2018 12:27 PM) Component Value Ref Range PTH 1239.1 (H) 8.5 - 72.5 pg/mL Specimen Performing Laboratory Blood [address] [address] * Lactate Dehydrogenase (LDH) (01/23/2018 12:27 PM) Component Value Ref Range LDH 152 125 - 220 U/L Specimen Performing Laboratory Blood [address] [address] * Gamma Glutamyl Transferase (GGT) (01/23/2018 12:27 PM) Component Value Ref Range GGT 162 (H) 9 - 64 U/L Specimen Performing Laboratory Blood [address] [address] * Lipid panel (01/23/2018 12:27 PM) Component Value Ref Range Triglycerides 107 mg/dL Cholesterol 151 mg/dL HDL 49 mg/dL LDL Calculated 81 mg/dL Specimen Performing Laboratory Blood [address] [address] Narrative Triglyceride Reference Range: Low Risk <150 [id number] High Risk 200-499 Very High Risk>=500 Cholesterol Reference Range: Low Risk <200 [id number] High Risk>240 HDL Cholesterol Reference Range: Low Risk >=60 High Risk <40 LDL Cholesterol Reference Range: Optimal<100 Near [id number] [id number] [id number] Very High >=190 * Comprehensive metabolic panel (01/23/2018 12:27 PM) Component Value Ref Range Protein, Total 7.0 6.0 - 8.3 gm/dL Albumin 3.8 3.5 - 5.0 g/dL Alkaline Phosphatase 389 (H) 40 - 150 U/L Total Bilirubin 0.4 0.2 - 1.2 mg/dL Sodium 137 136 - 145 meq/L Potassium 3.9 3.5 - 5.1 meq/L Chloride 113 (H) 98 - 107 meq/L CO2 16 (L) 22 - 29 meq/L BUN 41 (H) 7 - 21 mg/dL Creatinine 3.40 (H) 0.57 - 1.25 mg/dL Glucose 92 70 - 105 mg/dL Calcium 9.2 8.4 - 10.2 mg/dL AST 29 5 - 34 U/L ALT 29 6 - 55 U/L EGFR 14Comment: ESTIMATED GFR IS NOT ACCURATE mL/min/1.73 sq m CREATININE CLEARANCE IN PREDICTING GLOMERULAR FILTRATION RATE. ESTIMATED GFR IS NOT APPLICABLE FOR DIALYSIS PATIENTS. Specimen Performing Laboratory Blood [facility] [address] [address] after 04/03/2017
== END | disposition home or self-care (01) ==
LOC: OR 07:08
PROVIDERS: ATTEND Internal Medicine Gastroenterology
DX: Z12.11 Encounter for screening for malignant neoplasm of colon (principal); D12.2 Benign neoplasm of ascending colon; D12.7 Benign neoplasm of rectosigmoid junction; K62.6 Ulcer of anus and rectum; K62.89 Other specified diseases of anus and rectum; I12.9 Hypertensive chronic kidney disease with stage 1 through stage 4 chronic kidney disease, or unspecified chronic kidney disease; N18.9 Chronic kidney disease, unspecified; D64.9 Anemia, unspecified; Z01.810 Encounter for preprocedural cardiovascular examination; Z01.812 Encounter for preprocedural laboratory examination; Z87.891 Personal history of nicotine dependence
CPT/HCPCS: 36415; 45385; 85025; 93005; J2001; 45378; 45380

== ENCOUNTER → 2018-05-22 | Day surgery (SDC) | payer OTHER ==
[2018-05-21 17:28] LABS: BASOPHILS % 0.6 % (0.0-1.0); EOSINOPHILS # (AUTO) 0.4 (0.0-0.4); EOSINOPHILS % 5.6 % (0.0-6.0); HEMATOCRIT 25.5 % (34.2-44.1); HEMOGLOBIN 8.1 g/dL (12.0-16.0); LYMPHOCYTES # (AUTO) 2.3 (1.0-3.2); LYMPHOCYTES % 34.9 % (18.0-39.1); MEAN CORPUSCULAR HEMOGLOBIN 27.6 pg (28-32); MEAN CORPUSCULAR HGB CONC 31.8 g/dL (31-35); MEAN CORPUSCULAR VOLUME 86.7 fL (81-99); MONOCYTES # (AUTO) 0.8 (0.2-0.8); MONOCYTES % 11.6 % (4.4-11.3); NEUTROPHILS # (AUTO) 3.1 (2.1-6.9); NEUTROPHILS % 47.1 % (38.7-80.0); PLATELET COUNT 308 x10e3/uL (140-360); RED BLOOD COUNT 2.94 x10e6/uL (3.6-5.1); RED CELL DISTRIBUTION WIDTH 14.7 % (11.7-14.4)
[2018-05-21 17:59] LABS: ANION GAP 14.3 mmol/L (8-16); CALCIUM 8.1 mg/dL (8.4-10.2); CREATININE, SERUM 3.36 mg/dL (0.57-1.11); POTASSIUM 4.3 mmol/L (3.5-5.1)
--- NOTE | 2018-05-21 18:00 | Diagnostic Imaging Report ---
Frontal and lateral views of the chest. HISTORY: Preadmit, Port-A-Cath COMPARISON: Chest radiograph April 19, 2016 DISCUSSION: Lungs: The lungs are well inflated. No evidence of a consolidative pneumonia or pulmonary alveolar edema. Pleura: No pleural effusion or pneumothorax. Heart and mediastinum: The cardiomediastinal silhouette appears unremarkable. Bones: No acute osseous lesion. Other: Metallic clips in the right upper quadrant of the abdomen are compatible with prior cholecystectomy. IMPRESSION: 1. No acute radiographic abnormality. 2. No significant interval change. Signed by: Dr. Mohit Ortiz D.O., M.M.M. on 05/21/2018 5:57 PM
[~2018-05-22] MED LIST changes: +BACITRACIN 50,000 UNIT VIAL ONE; +DESFLURANE 240 ML BTL INH ONE; +DEXAMETHASONE SOD PHOS INJ 4 MG/ML VIAL ONE; +FENTANYL CITRATE/PF 100MCG/2 ML INJ ONE; +HEPARIN SOD (PORCINE) 5,000 UNIT/ML VIAL ONE; +MIDAZOLAM HCL 2 MG/2 ML VIAL ONE; +MORPHINE SULFATE 2 MG/ML SYR ONE; +NEOMYCIN/POLYMYX/BACITR OINT 0.9 GM PKT ONE; +ONDANSETRON HCL INJ 2 MG/ML VIAL ONE; +PROPOFOL IV EMULSION 10 MG/ML 20 ML VIAL ONE; -PROPOFOL IV EMULSION 10 MG/ML 50 ML VIAL ONE; +SODIUM CHLORIDE 0.9% 500ML 500 ML ONE
--- NOTE | 2018-05-22 09:06 | Diagnostic Imaging Report ---
PROCEDURE: A single AP view of the chest. COMPARISON: None. INDICATIONS: STATUS POST PORT-A-CATH PLACEMENT FINDINGS: Lines/tubes: Left subclavian approach chest port noted with the tip of the catheter overlying the SVC. Lungs: The lungs are well inflated and clear. There is no evidence of pneumonia or pulmonary edema. Pleura: There is no pleural effusion or pneumothorax. Heart and mediastinum: The heart and the mediastinum are unremarkable. Bones: No acute bony abnormality. IMPRESSION: No acute cardiopulmonary disease. Lito Mackey D.O. Dictated by: Lito Mackey D.O. on 05/22/2018 at 9:14 Electronically approved by: Lito Mackey D.O. on 05/22/2018 at 9:14
[2018-05-22 09:30] VITALS: BP 136/78
--- NOTE | 2018-05-22 09:31 | Operative Report ---
DATE OF PROCEDURE: May 22, 2018 PREOPERATIVE DIAGNOSIS: Needs angioaccess for chemotherapy. POSTOPERATIVE DIAGNOSIS: Needs angioaccess access for chemotherapy. PROCEDURE PERFORMED: Left subclavian Port-A-Cath. ANESTHESIA: General. ESTIMATED BLOOD LOSS: Minimal. DRAINS: None. COMPLICATIONS: None. INDICATIONS AND FINDINGS: This 63-year-old female with a history of rectal bleeding was found to have rectal cancer on colonoscopy, biopsy proven. Chemotherapy is planned preoperatively, and Port-A-Cath was requested. INTRAOPERATIVE FINDINGS: The patient had a Bard Port-A-Cath placed in the left subclavian region using the Seldinger technique. The product lot number was [id number]. Under fluoroscopic control, the Port-A-Cath was placed with the tip of the catheter lying in the superior vena cava-right atrial junction. There was good flow return. DESCRIPTION OF PROCEDURE: With the patient lying on the operating table in the supine position, after administration of general anesthesia, she was prepped and draped for Port-A-Cath placement. The procedure was begun by canalizing the left subclavian vein percutaneously with a needle and then introducing the guidewire under fluoroscopic control. It was found to be going into the right side of the heart. At this point, we made an incision in the left chest and subclavian region to accommodate the port. For this, blunt dissection was used. After we did that, we dilated the guidewire tract, and then we placed the sheath over the guidewire. Then the catheter, which was connected to the Port-A-Cath with the self-locking mechanism, was cut to the appropriate length to lay in the area of the superior vena cava-right atrial junction about 17 cm. It was flushed with heparinized solution, and then the catheter was placed into that location, and the peel-away sheath was removed. Fluoroscopy again confirmed the tip of the system in the desired location. The Port-A-Cath was irrigated with heparinized solution. It flushed and irrigated well. It had good return. After we did that, we irrigated the port site pocket. There was no bleeding. Then we secured the port with 2-0 silk at 3 different points to prevent migration. We then closed the wounds using 2-0 Vicryl for the deep subcutaneous plane, and the skin was closed using subcuticular 5-0 Vicryl. Steri-Strips were applied. The patient tolerated the procedure well and was taken to recovery room in stable condition. Job#: [id number] DESTINEY
== END | disposition home or self-care (01) ==
LOC: OR 05:33
PROVIDERS: ATTEND Surgery
DX: Z45.2 Encounter for adjustment and management of vascular access device (principal); C20 Malignant neoplasm of rectum; I10 Essential (primary) hypertension; D64.9 Anemia, unspecified; I83.90 Asymptomatic varicose veins of unspecified lower extremity; E03.9 Hypothyroidism, unspecified; K21.9 Gastro-esophageal reflux disease without esophagitis; Z88.6 Allergy status to analgesic agent; Z88.1 Allergy status to other antibiotic agents; Z91.041 Radiographic dye allergy status; Z01.812 Encounter for preprocedural laboratory examination; Z01.818 Encounter for other preprocedural examination; Z87.891 Personal history of nicotine dependence
CPT/HCPCS: 36415; 71045; 71046; 77001; 80048; 85025; C1751; J1100; J1644; J2001; J2250; J2270; J2405; J7040

== ENCOUNTER 2018-08-29 05:41 | Inpatient (IN) | payer OTHER ==
--- NOTE | 2018-08-28 16:08 | Diagnostic Imaging Report ---
EXAMINATION: CHEST 2 VIEWS INDICATION: ^MD ORDER ^[id number] ^1548 ^PRE ADMIT COMPARISON: 05/21/2018 FINDINGS: PA and lateral views TUBES and LINES: Left chest wall port in place with tip overlying SVC. LUNGS: Lungs are well inflated. There is no evidence of pneumonia or pulmonary edema. PLEURA: No pleural effusion or pneumothorax. HEART AND MEDIASTINUM: The cardiomediastinal silhouette is unremarkable. BONES AND SOFT TISSUES: No acute osseous lesion. Soft tissues are unremarkable. UPPER ABDOMEN: No free air under the diaphragm. Right upper quadrant surgical clips, likely related to cholecystectomy. IMPRESSION: No acute thoracic abnormality. Signed by: Dr. Mario Mariano MD on 08/28/2018 4:05 PM
[2018-08-28 16:09] LABS: BASOPHILS % 0.4 % (0.0-1.0); EOSINOPHILS # (AUTO) 0.1 (0.0-0.4); EOSINOPHILS % 1.1 % (0.0-6.0); HEMATOCRIT 24.1 % (34.2-44.1); HEMOGLOBIN 7.8 g/dL (12.0-16.0); LYMPHOCYTES # (AUTO) 0.7 (1.0-3.2); LYMPHOCYTES % 12.3 % (18.0-39.1); MEAN CORPUSCULAR HEMOGLOBIN 29.2 pg (28-32); MEAN CORPUSCULAR HGB CONC 32.4 g/dL (31-35); MEAN CORPUSCULAR VOLUME 90.3 fL (81-99); MONOCYTES # (AUTO) 0.5 (0.2-0.8); MONOCYTES % 9.5 % (4.4-11.3); NEUTROPHILS # (AUTO) 4.3 (2.1-6.9); NEUTROPHILS % 76.3 % (38.7-80.0); PLATELET COUNT 272 x10e3/uL (140-360); RED BLOOD COUNT 2.67 x10e6/uL (3.6-5.1); RED CELL DISTRIBUTION WIDTH 18.6 % (11.7-14.4)
[2018-08-28 16:42] LABS: ANION GAP 18.5 mmol/L (8-16); CREATININE, SERUM 4.69 mg/dL (0.57-1.11); POTASSIUM 3.5 mmol/L (3.5-5.1)
[2018-08-29] VITALS (9 sets, daily range): BP systolic 93–125; BP diastolic 53–61
[~2018-08-29] VITALS: Ht 157.5 cm; Wt 45.1 kg
[~2018-08-29 05:41] MED LIST changes: -BACITRACIN 50,000 UNIT VIAL ONE; -DESFLURANE 240 ML BTL INH ONE; -DEXAMETHASONE SOD PHOS INJ 4 MG/ML VIAL ONE; -FENTANYL CITRATE/PF 100MCG/2 ML INJ ONE; -HEPARIN SOD (PORCINE) 5,000 UNIT/ML VIAL ONE; -LIDOCAINE HCL 2% LOCAL INJ 5 ML SDV VIAL INJ ONE; -MIDAZOLAM HCL 2 MG/2 ML VIAL ONE; -MORPHINE SULFATE 2 MG/ML SYR ONE; -NEOMYCIN/POLYMYX/BACITR OINT 0.9 GM PKT ONE; -ONDANSETRON HCL INJ 2 MG/ML VIAL ONE; -PROPOFOL IV EMULSION 10 MG/ML 20 ML VIAL ONE; -SODIUM CHLORIDE 0.9% 500ML 500 ML ONE
--- OUTSIDE RECORDS SUMMARY | 2018-08-29 05:43 | XMS REPORT | Clinical Summary ---
Author Author SUMAN [facility] Address Unknown Phone Unavailable Care Team Providers Care Teaching Music Lessons Name Role Phone Sajan Andrews PCP Allergies Comments Active Allergy Reactions Severity Noted Date Cefazolin In Dextrose Hives 01/11/2018 (Iso-Os) Iodine And Iodide 01/11/2018 Containing Products Hydrocodone-Ibuprofen 01/11/2018 Medications End Date Status Medication Sig Dispensed Refills Start Date Active levothyroxine (SYNTHROID, levothyroxine 0 LEVOTHROID) 50 MCG tablet 50 mcg tablet Active lisinopril lisinopril 10 0 (PRINIVIL,ZESTRIL) 10 MG mg tablet tablet Active SODIUM BICARBONATE ORAL Take 20 g by 0 mouth 2 (two) times daily . Active cyanocobalamin (VITAMIN Inject 1,000 0 B-12) 1,000 mcg/mL mcg injection intramuscular ly every 30 (thirty) days . Active Problems Problem Noted Date Pre-transplant evaluation for chronic kidney disease 01/23/2018 Encounters Care Team Description Date Type Specialty Hiren Rosenthal RN 06/05/2018 Documentation Transplant Hiren Rosenthal RN 05/30/2018 Documentation Transplant Hiren Rosenthal RN Pre-transplant evaluation for end stage renal disease (Primary Dx); ESRD (end stage renal disease) (HCC); Abnormal blood chemistry 2018 Orders Only Transplant Neyda Moya MD 02/06/2018 Evaluation Transplant Edwin Rodriguez ESRD (end stage renal disease) (HCC); Pre-transplant evaluation for end stage renal disease; Anemia of chronic renal failure, unspecified CKD stage; Abnormal blood chemistry 02/06/2018 Orders Only Transplant Hepatology Hiren Rosenthal RN ESRD (end stage renal disease) (HCC) (Primary Dx); Pre-transplant evaluation for end stage renal disease; Anemia of chronic renal failure, unspecified CKD stage; Abnormal blood chemistry 02/06/2018 Orders Only Transplant Linda Rogers MD End stage renal disease (HCC) (Primary Dx) 01/31/2018 Hospital Radiology Encounter Linda Rogers MD ESRD (end stage renal disease) (HCC) 01/31/2018 Hospital Radiology Encounter Linda Rogers MD ESRD (end stage renal disease) ([facility]) 01/31/2018 Hospital Cardiology Encounter Linda Rogers MD ESRD (end stage renal disease) (HCC) 01/31/2018 Hospital Cardiology Encounter Linda Rogers MD ESRD (end stage renal disease) ([facility]) 01/31/2018 Orders Only Lab Mary Cruz RN Pre-transplant evaluation for chronic kidney disease (Primary Dx) 01/31/2018 Orders Only Transplant Linda Rogers MD ESRD (end stage renal disease) ([facility]); Pre-transplant evaluation for chronic kidney disease 01/31/2018 Orders Only Transplant Marilyn Shepherd Appointment 01/24/2018 Telephone Transplant Linda Rogers MD Timmins, Katherine S., MD Pre-transplant evaluation for chronic kidney disease (Primary Dx) 01/23/2018 Evaluation Transplant Linda Rogers MD ESRD (end stage renal disease) ([facility]) 01/23/2018 Orders Only Transplant Hepatology Linda Rogers MD Newby, Karen, RN Pre-transplant evaluation for chronic kidney disease 01/23/2018 Office Visit Transplant Hiren Rosenthal RN ESRD (end stage renal disease) ([facility]) (Primary Dx) 01/23/2018 Orders Only Transplant Chelsea Keller Kidney Transplant Pre-evaluation 01/18/2018 Telephone Transplant Chelsea Keller 01/11/2018 Abstract Transplant KellerChelsea 01/11/2018 Abstract Transplant KellerChelsea 01/02/2018 Abstract Transplant KellerChelsea 12/29/2017 Abstract Transplant KellerChelsea 12/22/2017 Abstract Transplant Chelsea Keller Kidney Transplant Pre-evaluation 12/06/2017 Telephone Transplant KellerChelsea 11/03/2017 Abstract Transplant Chelsea Keller Kidney Transplant Pre-evaluation 08/28/2017 Telephone Transplant after 08/28/2017 Family History Medical History Relation Name Comments Other Father of accident No Known Problem Mother No Known Problem Sister No Known Problem Sister Hypertension Son No Known Problem Son Relation Name Status Comments Brother Father Mother Alive Sister Alive Sister Alive Son Alive Son Alive Social History Date Tobacco Use Types Packs/Day Years Used Former Smoker Smokeless Tobacco: Never Used Comments: smoked at age 21 to 24 Alcohol Use Drinks/Week oz/Week Comments No Sex Assigned at Date Recorded Not on file Industry Job Start Date Occupation Not on file Not on file Not on file Travel End Travel History Travel Start No recent travel history available. Last Filed Vital Signs Time Taken Vital Sign Reading 01/31/2018 9:35 AM CDT Blood Pressure 132/52 01/31/2018 9:35 AM CDT Pulse 96 01/23/2018 2:56 PM CDT Temperature 36.6 C (97.8 F) 01/31/2018 9:35 AM CDT Respiratory Rate 18 - Oxygen Saturation - - Inhaled Oxygen - Concentration 02/06/2018 12:37 PM CDT Weight 51.9 kg (114 lb 6.4 oz) 02/06/2018 12:37 PM CDT Height 154 cm (5' 0.63") 02/06/2018 12:37 PM CDT Body Mass Index 21.88 Plan of Treatment Health Maintenance Due Date Last Done Comments INFLUENZA VACCINE 05/21/2018 Procedures Comments Procedure Name Priority Date/Time Associated Diagnosis OCCULT BLOOD, STOOL Routine 02/06/2018 ESRD (end stage renal 12:58 PM CDT disease) ([facility]) Pre-transplant evaluation for end stage renal disease Anemia of chronic renal failure, unspecified CKD stage Abnormal blood chemistry OCCULT BLOOD, STOOL Routine 02/06/2018 ESRD (end stage renal 12:58 PM CDT disease) ([facility]) Pre-transplant evaluation for end stage renal disease Anemia of chronic renal failure, unspecified CKD stage Abnormal blood chemistry TRANSFUSION SERVICE 02/01/2018 REPORT - SCAN 5:54 PM CDT ECHOCARDIOGRAM REPORT - 02/01/2018 SCAN 7:20 AM CDT ECHOCARDIOGRAM REPORT - 01/31/2018 SCAN 1:20 PM CDT US ABDOMEN COMPLETE Routine 01/31/2018 ESRD (end stage renal 12:25 PM CDT disease) ([facility]) XR CHEST 2 VIEWS Routine 01/31/2018 11:44 AM CDT STRESS ECHO Routine 01/31/2018 ESRD (end stage renal 8:53 AM CDT disease) ([facility]) 2D ECHO W/ DOPPLER Routine 01/31/2018 ESRD (end stage renal (CW/PW/COLOR) 8:26 AM CDT disease) ([facility]) ECG 12-LEAD Routine 01/31/2018 8:21 AM CDT Procedure Note - Interface, External Ris In - 01/31/2018 11:37 AM CDT Ventricula r Rate 82 BPM Atrial Rate 82 BPM P-R Interval 152 ms QRS Duration 84 ms Q-T Interval 376 ms QTC Calculatio n(Bazett) 439 ms P [place] 66 degrees R [place] 53 degrees T [place] 57 degrees Normal sinus rhythm Normal ECG No previous ECGs available ECG 12-LEAD Routine 01/31/2018 ESRD (end stage renal 8:21 AM CDT disease) ([facility]) CBC W/PLT COUNT & AUTO Routine 01/31/2018 End stage renal disease DIFFERENTIAL 8:12 AM CDT ([facility]) CBC W/PLT COUNT & AUTO Routine 01/31/2018 End stage renal disease DIFFERENTIAL 8:12 AM CDT ([facility]) BLOOD TYPING, AUTOMATED Routine 01/31/2018 ESRD (end stage renal 7:58 AM CDT disease) ([facility]) TRANSFUSION SERVICE 01/25/2018 REPORT - SCAN 7:53 AM CDT URINALYSIS W/ MICROSCOPIC Routine 01/23/2018 ESRD (end stage renal 12:30 PM CDT disease) ([facility]) URINE CULTURE Routine 01/23/2018 ESRD (end stage renal 12:30 PM CDT disease) ([facility]) CBC W/PLT COUNT & AUTO Routine 01/23/2018 ESRD (end stage renal DIFFERENTIAL 12:28 PM CDT disease) ([facility]) TYPE AND SCREEN, Routine 01/23/2018 ESRD (end stage renal AUTOMATED 12:28 PM CDT disease) (HCC) DIRECT AHG (NIDIA)/DIRECT Routine 01/23/2018 ESRD (end stage renal TAD 12:28 PM CDT disease) (HCC) AB SPECIFICITY CLASS II Routine 01/23/2018 ESRD (end stage renal 12:28 PM CDT disease) (HCC) AB SPECIFICITY CLASS I Routine 01/23/2018 ESRD (end stage renal 12:28 PM CDT disease) (HCC) FLOW PRA CLASS II WITH Routine 01/23/2018 ESRD (end stage renal REFLEX TO ANTIBODY 12:28 PM CDT disease) (HCC) SPECIFICITY FLOW PRA CLASS I WITH Routine 01/23/2018 ESRD (end stage renal REFLEX TO ANTIBODY 12:28 PM CDT disease) (HCC) SPECIFICITY HEMOGLOBIN A1C Routine 01/23/2018 ESRD (end stage renal 12:28 PM CDT disease) (HCC) PT/APTT Routine 01/23/2018 ESRD (end stage renal 12:28 PM CDT disease) (HCC) HIV-1 ANTIGEN WITH Routine 01/23/2018 ESRD (end stage renal HIV-1/2 ANTIBODY 12:28 PM CDT disease) (HCC) HEPATITIS C ANTIBODY Routine 01/23/2018 ESRD (end stage renal 12:28 PM CDT disease) (HCC) HEPATITIS B CORE Routine 01/23/2018 ESRD (end stage renal ANTIBODY, IGM 12:28 PM CDT disease) (HCC) HEPATITIS B SURFACE Routine 01/23/2018 ESRD (end stage renal ANTIGEN 12:28 PM CDT disease) (HCC) HEPATITIS B SURFACE Routine 01/23/2018 ESRD (end stage renal ANTIBODY 12:28 PM CDT disease) (HCC) CBC W/PLT COUNT & AUTO Routine 01/23/2018 ESRD (end stage renal DIFFERENTIAL 12:28 PM CDT disease) (HCC) LIPID PANEL Routine 01/23/2018 ESRD (end stage renal 12:27 PM CDT disease) ([facility]) HLA TYPING CII Routine 01/23/2018 ESRD (end stage renal 12:27 PM CDT disease) ([facility]) HLA TYPING CI Routine 01/23/2018 ESRD (end stage renal 12:27 PM CDT disease) ([facility]) VARICELLA ZOSTER Routine 01/23/2018 ESRD (end stage renal ANTIBODY, IGG 12:27 PM CDT disease) ([facility]) URIC ACID Routine 01/23/2018 ESRD (end stage renal 12:27 PM CDT disease) ([facility]) T SPOT TB Routine 01/23/2018 ESRD (end stage renal 12:27 PM CDT disease) ([facility]) RPR Routine 01/23/2018 ESRD (end stage renal 12:27 PM CDT disease) ([facility]) PTH, INTACT Routine 01/23/2018 ESRD (end stage renal 12:27 PM CDT disease) ([facility]) PHOSPHORUS Routine 01/23/2018 ESRD (end stage renal 12:27 PM CDT disease) ([facility]) LACTATE DEHYDROGENASE Routine 01/23/2018 ESRD (end stage renal (LDH) 12:27 PM CDT disease) ([facility]) GAMMA GLUTAMYL Routine 01/23/2018 ESRD (end stage renal TRANSFERASE (GGT) 12:27 PM CDT disease) ([facility]) EBV ANTIBODY, IGM Routine 01/23/2018 ESRD (end stage renal 12:27 PM CDT disease) ([facility]) EBV ANTIBODY, IGG Routine 01/23/2018 ESRD (end stage renal 12:27 PM CDT disease) ([facility]) COMPREHENSIVE METABOLIC Routine 01/23/2018 ESRD (end stage renal PANEL 12:27 PM CDT disease) ([facility]) CYTOMEGALOVIRUS ANTIBODY, Routine 01/23/2018 ESRD (end stage renal IGM 12:27 PM CDT disease) (HCC) CYTOMEGALOVIRUS ANTIBODY, Routine 01/23/2018 ESRD (end stage renal IGG 12:27 PM CDT disease) (HCC) after 08/28/2017 Results * Occult blood, stool (02/06/2018 12:58 PM CDT) Only the most recent of 2 results within the time period is included. Occult blood Positive (A) Negative [facility] Specimen Stool - Stool Performing Organization Address City/State/Zipcode Phone Number [facility] [address] [place] [address] [facility] * TRANSFUSION SERVICE REPORT - SCAN (02/01/2018 5:54 PM CDT) Only the most recent of 2 results within the time period is included. Narrative Performed At * ECHOCARDIOGRAM REPORT - SCAN (02/01/2018 7:20 AM CDT) Narrative Performed At * ECHOCARDIOGRAM REPORT - SCAN (01/31/2018 1:20 PM CDT) Narrative Performed At * US abdomen complete (01/31/2018 12:25 PM CDT) Narrative Performed At FINAL REPORT [place] Abdominal ultrasound Clinical History:End-stage renal disease, kidney [...] MD Report Verified Date/Time:01/31/2018 13:19:59 Reading Location: [address] Ultrasound Reading Room Procedure Note Interface, [...] Report Verified Date/Time: 01/31/2018 13:19:59 Reading Location: [address] Ultrasound Reading Room Performing Organization Address City/State/Zipcode Phone Number RIS * XR chest 2 views (01/31/2018 11:44 AM CDT) Narrative Performed At FINAL REPORT [facility] CLINICAL HISTORY: esrd/kidney transplant evaluation TECHNIQUE: 2 views of the chest COMPARISON: None IMPRESSION: There are no focal infiltrates or effusions. The cardiomediastinal silhouette is within normal limits for size. The osseous structures appear intact. Signed: Yo Osorio MD Report Verified Date/Time:01/31/2018 12:45:00 Reading Location: [address] Consult Reading Room Procedure Note Interface, External Ris In - 01/31/2018 12:47 PM CDT FINAL REPORT CLINICAL HISTORY: esrd/kidney transplant evaluation TECHNIQUE: 2 views of the chest COMPARISON: None IMPRESSION: There are no focal infiltrates or effusions. The cardiomediastinal silhouette is within normal limits for size. The osseous structures appear intact. Signed: Yo Osorio MD Report Verified Date/Time: 01/31/2018 12:45:00 Reading Location: [facility] [id number] Consult Reading Room Performing Organization Address City/State/Zipcode Phone Number GE RIS * Stress Echo With Tracing (01/31/2018 8:53 AM CDT) Ejection Fraction Est EF of >70% [facility] ECHO HEART[facility] Narrative Performed At Stress Echocardiography Report [facility] ECHO HEART[facility] Demographics [facility] Patient Name RENETTA GARCIA Date of Study01/31/2018 [id number] Gender Female Visit Number [id number] Race Unknown [id number] Number Number Date of Birth1955 ReferringKen Pizarro Physician Age62 year(s) SonographerDianne Peres Interpreting Physician BlaneMD Fellow BILL Cheema Procedure Type of Study [...] Response: See below Peak BP: 170/51 mmHgBP Response: See below Predicted HR: 156 bpm HR BP Product: 04861 % of predicted HR: 91 Max Infusion: [...] +--------+------+------+ +------+-----+--------+--+--------+----+------ + !Stage # !Time!Dosage!Other !Dosage!Heart!Blood !CP!Pain!Pain!Pain! !!!!Medication!!Rate !Pressure!!Location!Type!Action! +--------+------+------+ +------+-----+--------+--+--------+----+------ + !1.0 !3.017 !10.00 !!!125!165/53!!! !! +--------+------+------+ +------+-----+--------+--+--------+----+------ + !2.0 !1.467 !20.00 !!!142!170/51!!! !! +--------+------+------+ +------+-----+--------+--+--------+----+------ + !Recovery!16.517!0.00!!!97 !132/52!!!!! +--------+------+------+ +------+-----+--------+--+--------+----+------ + Summary Indications: Pre-surgical evaluation [...] of Study 01/31/2018 Gender Female Visit Number [id number] Race Unknown Room Number Number Date of 1955 Referring Ken Pizarro Physician Age 62 year(s) Outside Repairer Special Dianne Peres Interpreting Marcella Machado, Physician MD Fellow BILL Cheema Procedure Type of Study [...] Predicted HR: 156 bpm HR BP Product: 18987 % of predicted HR: 91 Max Infusion: 20 mcg/kg/min Test Duration: 16:31 min Reason for Termination: Target heart rate Results Global LVEF (rest): Normal (LVEF >50%) Global LVEF (stress): Hyperkinetic (LVEF >70%) ECG No significant ST changes. Arrhythmias No significant rhythm abnormality during stress or recovery. Symptoms No symptoms during stress test. Stress Protocol: Pharmacologic - Dobutamine +--------+------+------+ +------+-----+--------+--+--------+----+------+ !Stage # !Time !Dosage!Other !Dosage!Heart!Blood !CP!Pain !Pain!Pain ! ! ! ! !Medication! !Rate !Pressure! !Location!Type!Action! +--------+------+------+ +------+-----+--------+--+--------+----+------+ !1.0 !3.017 !10.00 ! ! !125 !165/53 ! ! ! ! ! +--------+------+------+ +------+-----+--------+--+--------+----+------+ !2.0 !1.467 !20.00 ! ! !142 !170/51 ! ! ! ! ! +--------+------+------+ +------+-----+--------+--+--------+----+------+ !Recovery!16.517!0.00 ! ! !97 !132/52 ! ! ! ! ! +--------+------+------+ +------+-----+--------+--+--------+----+------+ Summary Indications: Pre-surgical evaluation for renal transplant [...] No prior studies available for comparison. Signature Performing Organization Address City/State/Zipcode Phone Number [facility] [employer] [facility] * 2D Echo W/Doppler(CW/PW/Color) (01/31/2018 8:26 AM CDT) Ejection Fraction [facility] [employer] [facility] Narrative Performed At Transthoracic Echocardiography Report (TTE) [facility] [employer] Demographics [facility] Patient Name RENETTA GARCIA Date of Study 01/31/2018 [id number] GenderFemale Visit Number [id number] RaceUnknown [id number] Number Number Date of Birth1955 Referring Physician Ken Pizarro Age62 year(s) Outside Repairer Special Dianne Zeng MD Physician Fellow BILL Cheema Procedure [...] (impaired relaxation and low-normal LA pressure). Left AtriumLA [...] of Study 01/31/2018 Gender Female Visit Number [id number] Race Unknown Room Number Number Date of 1955 Referring Physician Ken Pizarro Age 62 year(s) Outside Repairer Special Dianne Peres Interpreting Basasm Zeng MD Physician Fellow BILL Cheema Procedure [...] Velocity: 2.83 m/s TR Gradient: 32.01 mmHg Performing Organization Address [facility] Phone Number [facility] ECHO HEART[facility] MKCKESSON CPACS * ECG 12 lead (01/31/2018 8:21 AM CDT) Narrative Performed At Ventricular Rate 82 BPM GE MUSE Atrial Rate 82 BPM P-R Interval 152 ms QRS Duration 84 ms Q-T Interval 376 ms QTC Calculation(Bazett) 439 ms P [place] 66 degrees R [place] 53 degrees T [place] 57 degrees Normal sinus rhythm Normal ECG No previous ECGs available Confirmed by MD LAND JORGE ([id number]) on 01/31/2018 4:25:10 PM Procedure Note Interface, External Ris In - 01/31/2018 4:25 PM CDT Ventricular Rate 82 BPM Atrial Rate 82 BPM P-R Interval 152 ms QRS Duration 84 ms Q-T Interval 376 ms QTC Calculation(Bazett) 439 ms P [place] 66 degrees R [place] 53 degrees T [place] 57 degrees Normal sinus rhythm Normal ECG No previous ECGs available Confirmed by MD LAND JORGE ([id number]) on 01/31/2018 4:25:10 PM Performing Organization Address [facility] Phone Number [employer] MUSE * CBC with platelet count + automated diff (01/31/2018 8:12 AM CDT) Only the most recent of 2 results within the time period is included. WBC 5.5 3.5 - 10.5 K/L [facility] RBC 3.15 (L) 3.93 - 5.22 M/L [facility] Hemoglobin 8.7 (L) 11.2 - 15.7 GM/DL [facility] Hematocrit 27.3 (L) 34.1 - 44.9 % [facility] MCV 86.7 79.4 - 94.8 fL [facility] MCH 27.6 25.6 - 32.2 pg [facility] MCHC 31.9 (L) 32.2 - 35.5 GM/DL [facility] RDW 15.0 (H) 11.7 - 14.4 % [facility] Platelets 293 150 - 450 K/CU MM [facility] MPV 9.9 9.4 - 12.3 fL [facility] nRBC 0 0 - 0 /100 WBC [facility] % Neutros 63 % [facility] % Lymphs 21 % [facility] % Monos 10 % [facility] % Eos 5 % [facility] % Baso 1 % [facility] # Neutros 3.43 1.56 - 6.13 K/L [facility] # Lymphs 1.16 (L) 1.18 - 3.74 K/L [facility] # Monos 0.53 (H) 0.24 - 0.36 K/L [facility] # Eos 0.28 0.04 - 0.36 K/L [facility] # Baso 0.04 0.01 - 0.08 K/L [facility] Immature 0 0 - 1 % [facility] Granulocytes-Relative [facility] Specimen Blood Performing Organization Address City/State/Zipcode Phone Number [facility] [address] [place] [address] [facility] * Blood typing, automated (01/31/2018 7:58 AM CDT) ABO/RH AUTOMATED (MIRIAM) O POSITIVE [facility] Specimen Blood Performing Organization Address City/State/Zipcode Phone Number [facility] [address] * Urinalysis, Routine (01/23/2018 12:30 PM CDT) Color, UA Light Yellow [facility] Clarity, UA Clear [facility] Specific [place], UA 1.008 1.001 - 1.035 [facility] pH, UA 6.0 5.0 - 8.0 [facility] Protein, UA 100 mg/dL (A) Negative [facility] Glucose, UA 100 mg/dL (A) Negative [facility] Ketones, UA Negative Negative [facility] Bilirubin, UA Negative Negative [facility] Blood, UA Trace (A) Negative [facility] Nitrite, UA Negative Negative [facility] Leukocytes, UA Negative Negative [facility] Urobilinogen, UA 0.2 0.2 - 1.0 mg/dL [facility] RBC, UA 0 /HPF [facility] WBC, UA <1 /HPF [facility] Mucus Rare [facility] Specimen Source [facility] Specimen Urine Performing Organization Address City/[facility]/Zipcode Phone Number [address] * Urine Culture (01/23/2018 12:30 PM CDT) Result No growth [facility] Specimen Urine - Urine, Unspecified Source Performing Organization Address City/[facility] Phone Number [address] * FLOW PRA CLASS II WITH REFLEX TO ANTIBODY SPECIFICITY (01/23/2018 12:28 PM CDT) Flow Class II Percent 20 [facility] Positive Flow Class Report [facility] Comments Specimen Blood Performing Organization Address [facility] Phone Number [facility] [id number], [place] [address] CLIA#[id number] CAP#[id number] UNOS#[id number] * FLOW PRA CLASS I WITH REFLEX TO ANTIBODY SPECIFICITY (01/23/2018 12:28 PM CDT) Flow Class I Percent 53 [facility] Positive Flow Class Report [facility] Comments Specimen Blood Performing Organization Address [facility] Phone Number [facility] [id number], [place] [address] CLIA#[id number] CAP#[id number] UNOS#[id number] * AB SPECIFICITY CLASS II (01/23/2018 12:28 PM CDT) AB Specificity Class II NO CLASS II ANTIBODY DETECTED [facility] WITH MFIs > 4000 AB Specificity Titr Class [facility] Report Specimen Blood Narrative Performed At Disclaimer: [facility] This test was developed and its performance characteristics determined by the [facility] Laboratory. It has not been cleared or [...] to perform high complexity clinical laboratory testing. Performing Organization Address [facility] Phone Number [facility] [id number], [place] [address] CLIA#[id number] CAP#[id number] UNOS#[id number] * AB SPECIFICITY CLASS I (01/23/2018 12:28 PM CDT) AB Specificity Class I NO CLASS I ANTIBODY DETECTED [facility] WITH MFIs > 4000 AB Specificity Titr Class [facility] Report Specimen Blood Narrative Performed At Disclaimer: [facility] This test was developed and its performance characteristics determined by the [facility] Laboratory. It has not been cleared or [...] to perform high complexity clinical laboratory testing. Performing Organization Address City/State/Zipcode Phone Number [facility] HLA TESTING ONE [place] [address], : [id number], [place] [address] CLIA#[id number] CAP#[id number] UNOS#[id number] * Type and Screen, Automated (01/23/2018 12:28 PM CDT) ABO/RH AUTOMATED (BEAKER) O POSITIVE [facility] Ab Scrn NEGATIVE [facility] Specimen Blood Performing Organization Address [facility] Phone Number [facility] [address] [place] [address] [facility] * PT/aPTT (01/23/2018 12:28 PM CDT) Protime 14.6 11.7 - 14.7 seconds [facility] INR 1.1 <=5.9 [facility] PTT 33.1 22.5 - 36.0 seconds [facility] Specimen Blood Narrative Performed At RECOMMENDED COUMADIN/WARFARIN INR THERAPY RANGES [facility] STANDARD DOSE: 2.0 - 3.0 Includes: PROPHYLAXIS for venous thrombosis, [facility] systemic embolization; TREATMENT for venous thrombosis and/or pulmonary embolus. HIGH RISK: Target INR is 2.5-3.5 for patients with mechanical heart valves. Performing Organization Address City/[facility] Phone Number [facility] [address] [place] [address] [facility] * HIV-1 Antigen with HIV-1/2 Antibody (01/23/2018 12:28 PM CDT) HIV-1 Antigen with HIV NON-REACTIVE Nonreactive [facility] 1&2 Antibody [facility] Specimen Blood Performing Organization Address City/[facility]/Zipcode Phone Number [facility] [address] [place] [address] [facility] * Hepatitis C Antibody (01/23/2018 12:28 PM CDT) Hepatitis C Ab NON-REACTIVE Nonreactive [facility] Specimen Blood Performing Organization Address [facility] Phone Number [phone] [place] [address] * Hepatitis B core antibody, IgM (01/23/2018 12:28 PM CDT) Hep B C IgM NON-REACTIVE Nonreactive [facility] Specimen Blood Performing Organization Address [facility] Phone Number [phone] [place] [address] * Hepatitis B surface antibody (01/23/2018 12:28 PM CDT) Hep B S Ab <8.0 <8.0 mIU/mL [facility] Specimen Blood Performing Organization Address [facility] Phone Number [phone] [place] [address] * Hepatitis B surface antigen (01/23/2018 12:28 PM CDT) hepatitis B Surface Ag NON-REACTIVE Nonreactive [facility] Specimen Blood Performing Organization Address [facility] Phone Number [phone] [place] [address] * Direct AHG (NIDIA)/Direct Tad (01/23/2018 12:28 PM CDT) Direct AHG-IGG NEGATIVE [facility] Direct AHG-C3B, C3D NEGATVIE [facility] Specimen Blood Performing Organization Address [facility] Phone Number [address] * Hemoglobin A1c (01/23/2018 12:28 PM CDT) Hemoglobin A1C 5.0 4.3 - 6.1 % [facility] Specimen Blood Performing Organization Address City/State/Zipcode Phone Number [facility] [address] [place], [place] [phone] [facility] * HLA TYPING CII (01/23/2018 12:27 PM CDT) HLA-DR AG1 04 [facility] HLA TESTING HLA-DR AG2 11 [facility] HLA TESTING HLA-DR AG3-1 [facility] HLA TESTING HLA-DR AG3-2 52 [facility] HLA TESTING HLA-DR AG4-1 53 [facility] HLA TESTING HLA-DR AG4-2 [facility] HLA TESTING HLA-DR AG5-1 [facility] HLA TESTING HLA-DR AG5-2 [facility] HLA TESTING HLA-DQA1 AG 1-1 03 [facility] HLA TESTING HLA-DQA1 AG 1-2 05 [facility] HLA TESTING HLA-DQB1 AG 1-1 8 [facility] HLA TESTING HLA-DQB1 AG 1-2 7 [facility] HLA TESTING HLA-DPA1 AG 1-1 01 [facility] HLA TESTING HLA-DPA1 AG 1-2 02 [facility] HLA TESTING HLA-DPB1 AG 1-1 04:02 [facility] HLA TESTING HLA-DPB1 AG 1-2 10:01 [facility] HLA TESTING HLA-AG Notes [facility] HLA TESTING HLA-AG Report Comments [facility] HLA TESTING Specimen Blood Performing Organization Address [facility] Phone Number [facility] HLA TESTING ONE [facility] [address], [place]: [id number], [place] [address] CLIA#[id number] CAP#[id number] UNOS#[id number] * HLA TYPING CI (01/23/2018 12:27 PM CDT) HLA-A AG1 24 [facility] HLA TESTING HLA-A AG2 31 [facility] HLA TESTING HLA-B AG1 27 [facility] HLA TESTING HLA-B AG2 35 [facility] HLA TESTING HLA-C AG1 2 [facility] HLA TESTING HLA-C AG2 12 [facility] HLA TESTING HLA-B BW1 4 [facility] HLA TESTING HLA-B BW2 6 [facility] HLA TESTING HLA-AG Notes [facility] HLA TESTING HLA-AG Report Comments [facility] HLA TESTING Specimen Blood Performing Organization Address City/[facility]/Zipcode Phone Number [facility] HLA TESTING ONE [facility] [place], [place]: [id number], [place] [address] CLIA#[id number] CAP#[id number] UNOS#[id number] * T Spot TB (01/23/2018 12:27 PM CDT) T-Spot TB Negative [facility] Neg Ctrl Spot Count 0 [facility] Panel A Spot 0 [facility] Panel B Spot 0 [facility] Pos Ctrl Spot Ct 0 [facility] Scan Result 0 [facility] Specimen Blood Narrative Performed At Performing Organization Address City/State/Zipcode Phone Number [facility] [address] [facility], [place] [address] LABORATORIES 100 * Cytomegalovirus antibody, IgM (01/23/2018 12:27 PM CDT) CMV IgM Negative [facility] Specimen Blood Performing Organization Address City/[facility] Phone Number [address] * EBV-VCA antibody, IgM (01/23/2018 12:27 PM CDT) EBV VCA IgM Negative [facility] Specimen Blood Performing Organization Address City/[facility]/Zipcode Phone Number [address] * EBV-VCA antibody, IgG (01/23/2018 12:27 PM CDT) EBV VCA IgG Positive [facility] Specimen Blood Performing Organization Address City/[facility] Phone Number [address] * RPR (01/23/2018 12:27 PM CDT) RPR Nonreactive Nonreactive [facility] Specimen Blood Performing Organization Address City/[facility]/Zipcode Phone Number [address] * Cytomegalovirus antibody, IgG (01/23/2018 12:27 PM CDT) CMV IgG Positive [facility] Specimen Blood Performing Organization Address City/State/Zipcode Phone Number [facility] [address] * Varicella Zoster Antibody, IgG (01/23/2018 12:27 PM CDT) Varicella IgG 4.9 Al [facility] Specimen Blood Narrative Performed At VARICELLA ZOSTER RESULT INTERPRETATIONS: [facility] <=0.8 AlNonreactive:Presumed non-immune to VZV [facility] 0.9-1.0 AlEquivocal >=1.1 AlReactive:Presumed immune to VZV Performing Organization Address City/[facility] Phone Number [address] * Uric Acid (01/23/2018 12:27 PM CDT) Uric Acid 5.7 2.6 - 7.2 mg/dL [facility] Specimen Blood Performing Organization Address City/[facility] Phone Number [address] * Phosphorus (01/23/2018 12:27 PM CDT) Phosphorus 4.5 2.3 - 4.7 mg/dL [facility] Specimen Blood Performing Organization Address [facility] Phone Number [address] * PTH, Intact (01/23/2018 12:27 PM CDT) PTH 1,239.1 (H) 8.5 - 72.5 pg/mL [facility] Specimen Blood Performing Organization Address City/[facility] Phone Number [address] * Lactate Dehydrogenase (LDH) (01/23/2018 12:27 PM CDT) LDH 152 125 - 220 U/L [facility] Specimen Blood Performing Organization Address City/[facility] Phone Number [address] [place] [address] [facility] * Gamma Glutamyl Transferase (GGT) (01/23/2018 12:27 PM CDT) GGT 162 (H) 9 - 64 U/L [facility] Specimen Blood Performing Organization Address [facility] [place] [address] [facility] * Lipid panel (01/23/2018 12:27 PM CDT) Triglycerides 107 mg/dL [facility] Cholesterol 151 mg/dL [facility] HDL 49 mg/dL [facility] LDL Calculated 81 mg/dL [facility] Specimen Blood Narrative Performed At Triglyceride Reference Range: [facility] Low Risk <150 [facility] [id number] High Risk 200-499 Very High Risk>=500 Cholesterol Reference Range: Low Risk <200 [id number] High Risk>240 HDL Cholesterol Reference Range: Low Risk >=60 High Risk <40 LDL Cholesterol Reference Range: Optimal<100 Near [id number] Very High >=190 Performing Organization Address City/[facility] Phone Number [place] [phone] [place] [address] * Comprehensive metabolic panel (01/23/2018 12:27 PM CDT) Protein, Total 7.0 6.0 - 8.3 gm/dL [facility] Albumin 3.8 3.5 - 5.0 g/dL [facility] Alkaline Phosphatase 389 (H) 40 - 150 U/L [facility] Total Bilirubin 0.4 0.2 - 1.2 mg/dL [facility] Sodium 137 136 - 145 meq/L [facility] Potassium 3.9 3.5 - 5.1 meq/L [facility] Chloride 113 (H) 98 - 107 meq/L [facility] CO2 16 (L) 22 - 29 meq/L [facility] BUN 41 (H) 7 - 21 mg/dL [facility] Creatinine 3.40 (H) 0.57 - 1.25 mg/dL [facility] Glucose 92 70 - 105 mg/dL [facility] Calcium 9.2 8.4 - 10.2 mg/dL [facility] AST 29 5 - 34 U/L [facility] ALT 29 6 - 55 U/L [facility] EGFR 14Comment: ESTIMATED GFR IS mL/min/1.[address] [facility] NOT ACCURATE CREATININE [facility] CLEARANCE IN PREDICTING GLOMERULAR FILTRATION RATE. ESTIMATED GFR IS NOT APPLICABLE FOR DIALYSIS PATIENTS. Specimen Blood Performing Organization Address City/State/Zipcode Phone Number [facility] [address] [place] [address] [facility] after 08/28/2017 Insurance Payer Benefit Subscriber ID Type Phone Address Plan / Group [employer] - MGD UNITED xxxxxxxx CARE MEDICAL RESOURCES CHOICE POS [employer] - [employer] xxxxxxxx Transplant MGD CARE [facility] ONLY
[2018-08-29] MEDS ORDERED: HEPARIN SOD/SOD CHLORIDE 1,000 ML ONE (09:03)
[2018-08-29] MEDS ORDERED: SODIUM CHLORIDE 0.9% 500ML 500 ML ONE (09:52)
[2018-08-29] MEDS ORDERED: LEVOFLOXACIN 500MG/D5W 100ML 100 ML IV ONE ×2 (12:27→16:15)
[2018-08-29] MEDS ORDERED: ALBUMIN 25% 12.5GM 50ML 50 ML IV ONE (13:07)
[2018-08-29] MEDS ORDERED: SODIUM CHLORIDE 0.9% 1000ML 1,000 ML IV SCH (16:06)
[2018-08-29] MEDS ORDERED: HYDROMORPHONE 0.2MG/ML-SOD CHL 30ML PCA SYRINGE IV PRN (16:15)
[2018-08-29] MEDS ORDERED: NALOXONE HCL INJ 0.4 MG/ML AMP IV PRN (16:15)
[2018-08-29] MEDS: PANTOPRAZOLE 40 MG 10ML VIAL IV SCH (16:15)
[2018-08-29] MEDS ORDERED: ACETAMINOPHEN 1000 MG/100 ML IV PRN (16:15)
--- OUTSIDE RECORDS SUMMARY | 2018-08-29 16:27 | XMS REPORT | Clinical Summary ---
Author Author SUMAN [facility] Address Unknown Phone Unavailable Care Team Providers Care Assembler Dc Field Ring Name Role Phone Sajan Andrews PCP Allergies [...] Rogers MD ESRD (end stage renal disease) ([facility]) 01/31/2018 Hospital Cardiology Encounter Linda Rogers MD ESRD (end stage renal disease) (HCC) 01/31/2018 Hospital Cardiology Encounter Linda Rogers MD ESRD (end stage renal disease) ([facility]) 01/31/2018 Orders Only Lab Mary Cruz RN Pre-transplant evaluation for chronic kidney disease (Primary Dx) 01/31/2018 Orders Only Transplant Linda Rogers MD ESRD (end stage renal disease) ([facility]); Pre-transplant evaluation for chronic kidney disease 01/31/2018 Orders Only Transplant Marilyn Shepherd Appointment 01/24/2018 Telephone Transplant Linda Rogers MD Timmins, Katherine S., MD Pre-transplant evaluation for chronic kidney disease (Primary Dx) 01/23/2018 Evaluation Transplant Linda Rogers MD ESRD (end stage renal disease) ([facility]) 01/23/2018 Orders Only Transplant Hepatology Linda Rogers MD Newby, Karen, RN Pre-transplant evaluation for chronic kidney disease 01/23/2018 Office Visit Transplant Hiren Rosenthal RN ESRD (end stage renal disease) ([facility]) (Primary Dx) 01/23/2018 Orders Only Transplant Chelsea Keller Kidney Transplant Pre-evaluation 01/18/2018 Telephone Transplant Chelsea Keller 01/11/2018 Abstract Transplant KellerChelsea 01/11/2018 Abstract Transplant KellerChelsea 01/02/2018 Abstract Transplant KellerChelsea 12/29/2017 Abstract Transplant KellerChelsea 12/22/2017 Abstract Transplant Chelsea Keller Kidney Transplant Pre-evaluation 12/06/2017 Telephone Transplant KellerChelsea 11/03/2017 Abstract Transplant Chelsea eKller Kidney Transplant Pre-evaluation 08/28/2017 Telephone Transplant after [...] (end stage renal 12:58 PM CDT disease) ([facility]) Pre-transplant evaluation for end stage renal disease Anemia of chronic renal failure, unspecified CKD stage Abnormal blood chemistry OCCULT BLOOD, STOOL Routine 02/06/2018 ESRD (end stage renal 12:58 PM CDT disease) ([facility]) Pre-transplant evaluation for end stage renal disease Anemia of chronic renal failure, unspecified CKD stage Abnormal blood chemistry TRANSFUSION SERVICE 02/01/2018 REPORT - SCAN 5:54 PM CDT ECHOCARDIOGRAM REPORT - 02/01/2018 SCAN 7:20 AM CDT ECHOCARDIOGRAM REPORT - 01/31/2018 SCAN 1:20 PM CDT US ABDOMEN COMPLETE Routine 01/31/2018 ESRD (end stage renal 12:25 PM CDT disease) ([facility]) XR CHEST 2 VIEWS Routine 01/31/2018 11:44 AM CDT STRESS ECHO Routine 01/31/2018 ESRD (end stage renal 8:53 AM CDT disease) ([facility]) 2D ECHO W/ DOPPLER Routine 01/31/2018 ESRD (end stage renal (CW/PW/COLOR) 8:26 AM CDT disease) ([facility]) ECG 12-LEAD Routine 01/31/2018 8:21 AM CDT Procedure Note - Interface, External Ris In - 01/31/2018 11:37 AM CDT Ventricula r Rate 82 BPM Atrial Rate 82 BPM P-R Interval 152 ms QRS Duration 84 ms Q-T Interval 376 ms QTC Calculatio n(Bazett) 439 ms P Freer 66 degrees R Freer 53 degrees T Freer 57 degrees Normal sinus rhythm Normal ECG No previous ECGs available ECG 12-LEAD Routine 01/31/2018 ESRD (end stage renal 8:21 AM CDT disease) ([facility]) CBC W/PLT COUNT & AUTO Routine 01/31/2018 End stage renal disease DIFFERENTIAL 8:12 AM CDT ([facility]) CBC W/PLT COUNT & AUTO Routine 01/31/2018 End stage renal disease DIFFERENTIAL 8:12 AM CDT ([facility]) BLOOD TYPING, AUTOMATED Routine 01/31/2018 ESRD (end stage renal 7:58 AM CDT disease) ([facility]) TRANSFUSION SERVICE 01/25/2018 REPORT - SCAN 7:53 AM CDT URINALYSIS W/ MICROSCOPIC Routine 01/23/2018 ESRD (end stage renal 12:30 PM CDT disease) ([facility]) URINE CULTURE Routine 01/23/2018 ESRD (end stage renal 12:30 PM CDT disease) ([facility]) CBC W/PLT COUNT & AUTO Routine 01/23/2018 ESRD (end stage renal DIFFERENTIAL 12:28 PM CDT disease) ([facility]) TYPE AND SCREEN, Routine 01/23/2018 [...] (end stage renal 12:27 PM CDT disease) ([facility]) HLA TYPING CII Routine 01/23/2018 ESRD (end stage renal 12:27 PM CDT disease) ([facility]) HLA TYPING CI Routine 01/23/2018 ESRD (end stage renal 12:27 PM CDT disease) ([facility]) VARICELLA ZOSTER Routine 01/23/2018 ESRD (end stage renal ANTIBODY, IGG 12:27 PM CDT disease) ([facility]) URIC ACID Routine 01/23/2018 ESRD (end stage renal 12:27 PM CDT disease) ([facility]) T SPOT TB Routine 01/23/2018 ESRD (end stage renal 12:27 PM CDT disease) ([facility]) RPR Routine 01/23/2018 ESRD (end stage renal 12:27 PM CDT disease) ([facility]) PTH, INTACT Routine 01/23/2018 ESRD (end stage renal 12:27 PM CDT disease) ([facility]) PHOSPHORUS Routine 01/23/2018 ESRD (end stage renal 12:27 PM CDT disease) ([facility]) LACTATE DEHYDROGENASE Routine 01/23/2018 ESRD (end stage renal (LDH) 12:27 PM CDT disease) ([facility]) GAMMA GLUTAMYL Routine 01/23/2018 ESRD (end stage renal TRANSFERASE (GGT) 12:27 PM CDT disease) ([facility]) EBV ANTIBODY, IGM Routine 01/23/2018 ESRD (end stage renal 12:27 PM CDT disease) ([facility]) EBV ANTIBODY, IGG Routine 01/23/2018 ESRD (end stage renal 12:27 PM CDT disease) ([facility]) COMPREHENSIVE METABOLIC Routine 01/23/2018 ESRD (end stage renal PANEL 12:27 PM CDT disease) ([facility]) CYTOMEGALOVIRUS ANTIBODY, Routine 01/23/2018 ESRD (end stage renal IGM 12:27 PM CDT disease) (HCC) CYTOMEGALOVIRUS ANTIBODY, Routine 01/23/2018 ESRD (end stage renal IGG 12:27 PM CDT disease) (HCC) after 08/28/2017 Results * Occult blood, stool (02/06/2018 12:58 PM CDT) Only the most recent of 2 results within the time period is included. Occult blood Positive (A) Negative [facility] Specimen Stool - Stool Performing Organization Address City/State/Zipcode Phone Number [facility] [address] [place] [address] [facility] * TRANSFUSION SERVICE REPORT - SCAN [...] PM CDT) Narrative Performed At FINAL REPORT Content Fleet Abdominal ultrasound Clinical History:End-stage renal disease, kidney [...] MD Report Verified Date/Time:01/31/2018 13:19:59 Reading Location: [address] Ultrasound Reading Room Procedure Note Interface, [...] Report Verified Date/Time: 01/31/2018 13:19:59 Reading Location: [address] Ultrasound Reading Room Performing Organization Address [...] MD Report Verified Date/Time:01/31/2018 12:45:00 Reading Location: [address] Consult Reading Room Procedure Note Interface, External Ris In - 01/31/2018 12:47 PM CDT FINAL REPORT CLINICAL HISTORY: esrd/kidney transplant evaluation TECHNIQUE: 2 views of the chest COMPARISON: None IMPRESSION: There are no focal infiltrates or effusions. The cardiomediastinal silhouette is within normal limits for size. The osseous structures appear intact. Signed: Yo Osorio MD Report Verified Date/Time: 01/31/2018 12:45:00 Reading Location: [facility] [id number] Consult Reading Room Performing Organization Address City/State/Zipcode Phone Number GE RIS * Stress Echo With Tracing (01/31/2018 8:53 AM CDT) Ejection Fraction Est EF of >70% [facility]ART[facility] Narrative Performed At Stress Echocardiography Report [facility] Demographics [facility] Patient Name RENETTA GARCIA Date of Study01/31/2018 [id number] Gender Female Visit Number [id number] Race Unknown [id number] Number Number Date of Birth1955 ReferringKen Pizarro [...] Predicted HR: 156 bpm HR BP Product: 11502 % of predicted HR: 91 Max Infusion: [...] of Study 01/31/2018 Gender Female Visit Number [id number] Race Unknown Room Number Number Date of 1955 Referring Ken Pizarro Physician Age 62 year(s) Crook Operator Dianne Peres Interpreting Marcella Machado, Physician MD [...] Predicted HR: 156 bpm HR BP Product: 30512 % of predicted HR: 91 Max Infusion: [...] Signature Performing Organization Address City/State/Zipcode Phone Number [facility] Expect Labs [facility] * 2D Echo W/Doppler(CW/PW/Color) (01/31/2018 8:26 AM CDT) Ejection Fraction [facility] Narr[facility] Performed At Transthoracic Echocardiography Report (TTE) [facility] Expect Labs Demographics [facility] Patient Name RENETTA GARCIA Date of Study 01/31/2018 [id number] GenderFemale Visit Number [id number] RaceUnknown [id number] Number Number Date of Birth1955 Referring Physician Ken Pizarro Age62 year(s) Crook Operator Dianne Zeng MD Physician Fellow BILL Cheema [...] of Study 01/31/2018 Gender Female Visit Number [id number] Race Unknown Room Number Number Date of 1955 Referring Physician Ken Pizarro Age 62 year(s) Crook Operator Dianne Peres Interpreting Bassam Zeng MD Physician [...] TR Gradient: 32.01 mmHg Performing Organization Address [facility] Phone Number [facility] * ECG 12 lead (01/31/2018 8:21 AM CDT) Narrative Performed At Ventricular Rate 82 BPM GE MUSE Atrial Rate 82 BPM P-R Interval 152 ms QRS Duration 84 ms Q-T Interval 376 ms QTC Calculation(Bazett) 439 ms P Freer 66 degrees R Freer 53 degrees T Freer 57 degrees Normal sinus rhythm Normal ECG No previous ECGs available Confirmed by MD LAND JORGE ([id number]) on 01/31/2018 4:25:10 PM Procedure Note Interface, External Ris In - 01/31/2018 4:25 PM CDT Ventricular Rate 82 BPM Atrial Rate 82 BPM P-R Interval 152 ms QRS Duration 84 ms Q-T Interval 376 ms QTC Calculation(Bazett) 439 ms P Freer 66 degrees R Freer 53 degrees T Freer 57 degrees Normal sinus rhythm Normal ECG No previous ECGs available Confirmed by MD LAND JORGE ([id number]) on 01/31/2018 4:25:10 PM Performing Organization Address [facility] Phone Number [facility] MUSE * CBC with platelet count + automated diff (01/31/2018 8:12 AM CDT) Only the most recent of 2 results within the time period is included. WBC 5.5 3.5 - 10.5 K/L [facility] RBC 3.15 (L) 3.93 - 5.22 M/L [facility] Hemoglobin 8.7 (L) 11.2 - 15.7 GM/DL [facility] Hematocrit 27.3 (L) 34.1 - 44.9 % [facility] MCV 86.7 79.4 - 94.8 fL [facility] MCH 27.6 25.6 - 32.2 pg [facility] MCHC 31.9 (L) 32.2 - 35.5 GM/DL [facility] RDW 15.0 (H) 11.7 - 14.4 % [facility] Platelets 293 150 - 450 K/CU MM [facility] MPV 9.9 9.4 - 12.3 fL [facility] nRBC 0 0 - 0 /100 WBC [facility] % Neutros 63 % [facility] % Lymphs 21 % [facility] % Monos 10 % [facility] % Eos 5 % [facility] % Baso 1 % [facility] # Neutros 3.43 1.56 - 6.13 K/L [facility] # Lymphs 1.16 (L) 1.18 - 3.74 K/L [facility] # Monos 0.53 (H) 0.24 - 0.36 K/L [facility] # Eos 0.28 0.04 - 0.36 K/L [facility] # Baso 0.04 0.01 - 0.08 K/L [facility] Immature 0 0 - 1 % [facility] Granulocytes-Relative [facility] Specimen Blood Performing Organization Address City/State/Zipcode Phone Number [facility] [address] [place] [address] [facility] * Blood typing, automated (01/31/2018 7:58 AM CDT) ABO/RH AUTOMATED (MIRIAM) O [facility]IVE [facility] Specimen Blood Performing Organization Address City/State/Zipcode Phone Number [facility] [address] * Urinalysis, Routine (01/23/2018 12:30 PM CDT) Color, UA Light Yellow [facility] Clarity, UA Clear [facility] Specific Ragland, UA 1.008 1.001 - 1.035 [facility] pH, UA 6.0 5.0 - 8.0 [facility] Protein, UA 100 mg/dL (A) Negative [facility] Glucose, UA 100 mg/dL (A) Negative [facility] Ketones, UA Negative Negative [facility] Bilirubin, UA Negative Negative [facility] Blood, UA Trace (A) Negative [facility] Nitrite, UA Negative Negative [facility] Leukocytes, UA Negative Negative [facility] Urobilinogen, UA 0.2 0.2 - 1.0 mg/dL [facility] RBC, UA 0 /HPF [facility] WBC, UA <1 /HPF [facility] Mucus Rare [facility] Specimen Source [facility] Specimen Urine Performing Organization Address City/[facility]/Zipcode Phone Number [address] * Urine Culture (01/23/2018 12:30 PM CDT) Result No growth [facility] Specimen Urine - Urine, Unspecified Source Performing Organization Address City/[facility] Phone Number [address] * FLOW PRA CLASS II WITH REFLEX TO ANTIBODY SPECIFICITY (01/23/2018 12:28 PM CDT) Flow Class II Percent 20 [facility] Positive Flow Class Report [facility] Comments Specimen Blood Performing Organization Address [facility] Phone Number [facility] [address], [address]: [id number], [place] [address] CLIA#[id number] CAP#[id number] UNOS#[id number] * FLOW PRA CLASS I WITH REFLEX TO ANTIBODY SPECIFICITY (01/23/2018 12:28 PM CDT) Flow Class I Percent 53 [facility] Positive Flow Class Report [facility] Comments Specimen Blood Performing Organization Address [facility] Phone Number [facility] [address], [address]: [id number], [place] [address] CLIA#[id number] CAP#[id number] UNOS#[id number] * AB SPECIFICITY CLASS II (01/23/2018 12:28 PM CDT) AB Specificity Class II NO CLASS II ANTIBODY DETECTED [facility] WITH MFIs > 4000 AB Specificity Titr Class [facility] Report Specimen Blood Narrative Performed At Disclaimer: [facility] This test was developed and its performance characteristics determined by the [facility]. It has not been cleared or [...] complexity clinical laboratory testing. Performing Organization Address [facility] Phone Number [facility] [address], [id number], [place] [address] CLIA#[id number] CAP#[id number] UNOS#[id number] * AB SPECIFICITY CLASS I (01/23/2018 12:28 PM CDT) AB Specificity Class I NO CLASS I ANTIBODY DETECTED [facility] WITH MFIs > 4000 AB Specificity Titr Class [facility] Report Specimen Blood Narrative Performed At Disclaimer: [facility] This test was developed and its performance characteristics determined by the [facility]. It has not been cleared or [...] testing. Performing Organization Address City/State/Zipcode Phone Number [facility] [address], : [id number], [place] [address] CLIA#[id number] CAP#[id number] UNOS#[id number] * Type and Screen, Automated (01/23/2018 12:28 PM CDT) ABO/RH AUTOMATED (BEAKER) O POSITIVE [facility] Ab Scrn NEGATIVE [facility] Specimen Blood Performing Organization Address [facility] Phone Number [facility] [address] [place] [address] [facility] * PT/aPTT (01/23/2018 12:28 PM CDT) Protime 14.6 11.7 - 14.7 seconds [facility] INR 1.1 <=5.9 [facility] PTT 33.1 22.5 - 36.0 seconds [facility] Specimen Blood Narrative Performed At RECOMMENDED COUMADIN/WARFARIN INR THERAPY RANGES [facility] STANDARD DOSE: 2.0 - 3.0 Includes: PROPHYLAXIS for venous thrombosis, [facility] systemic embolization; TREATMENT for venous thrombosis and/or pulmonary embolus. HIGH RISK: Target INR is 2.5-3.5 for patients with mechanical heart valves. Performing Organization Address City/[facility] Phone Number [facility] [address] [place] [address] [facility] * HIV-1 Antigen with HIV-1/2 Antibody (01/23/2018 12:28 PM CDT) HIV-1 Antigen with HIV NON-REACTIVE Nonreactive [facility] 1&2 Antibody [facility] Specimen Blood Performing Organization Address City/[facility]/Zipcode Phone Number [facility] [address] [place] [address] [facility] * Hepatitis C Antibody (01/23/2018 12:28 PM CDT) Hepatitis C Ab NON-REACTIVE Nonreactive [facility] Specimen Blood Performing Organization Address [facility] Phone Number [phone] [place] [address] * Hepatitis B core antibody, IgM (01/23/2018 12:28 PM CDT) Hep B C IgM NON-REACTIVE Nonreactive [facility] Specimen Blood Performing Organization Address [facility] Phone Number [phone] [place] [address] * Hepatitis B surface antibody (01/23/2018 12:28 PM CDT) Hep B S Ab <8.0 <8.0 mIU/mL [facility] Specimen Blood Performing Organization Address [facility] Phone Number [phone] [place] [address] * Hepatitis B surface antigen (01/23/2018 12:28 PM CDT) hepatitis B Surface Ag NON-REACTIVE Nonreactive [facility] Specimen Blood Performing Organization Address [facility] Phone Number [phone] [place] [address] * Direct AHG (NIDIA)/Direct Tad (01/23/2018 12:28 PM CDT) Direct [facility]HG-IGG NEGATIVE [facility] Direct AHG-C3B, C3D NEGATVIE [facility] Specimen Blood Performing Organization Address [facility] Phone Number [address] * Hemoglobin A1c (01/23/2018 12:28 PM CDT) Hemoglobin A1C 5.0 4.3 - 6.1 % [facility] Specimen Blood Performing Organization Address City/State/Zipcode Phone Number [facility] [address], [place] [phone] [facility] * HLA TYPING CII (01/23/2018 12:27 PM CDT) HLA-DR AG1 04 [facility] HLA-DR AG2 11 [facility] HLA-DR AG3-1 [facility] HLA-DR AG3-2 52 [facility] HLA-DR AG4-1 53 [facility] HLA-DR AG4-2 [facility] HLA-DR AG5-1 [facility] HLA-DR AG5-2 [facility] HLA-DQA1 AG 1-1 03 [facility] HLA-DQA1 AG 1-2 05 [facility] HLA-DQB1 AG 1-1 8 [facility] HLA-DQB1 AG 1-2 7 [facility] HLA-DPA1 AG 1-1 01 [facility] HLA-DPA1 AG 1-2 02 [facility] HLA-DPB1 AG 1-1 04:02 [facility] HLA-DPB1 AG 1-2 10:01 [facility] HLA-AG Notes [facility] HLA-AG Report Comments [facility] Specimen Blood Performing Organization Address [facility] Phone Number [facility] ONE [facility] [address], [id number], [place] [address] CLIA#[id number] CAP#[id number] UNOS#[id number] * HLA TYPING CI (01/23/2018 12:27 PM CDT) HLA-A AG1 24 [facility] HLA-A AG2 31 [facility] HLA-B AG1 27 [facility] HLA-B AG2 35 [facility] HLA-C AG1 2 [facility] HLA-C AG2 12 [facility] HLA-B BW1 4 [facility] HLA-B BW2 6 [facility] HLA-AG Notes [facility] HLA-AG Report Comments [facility] Specimen Blood Performing Organization Address City/[facility]/Zipcode Phone Number [facility] ONE [facility] [address], [id number], [place] [address] CLIA#[id number] CAP#[id number] UNOS#[id number] * T Spot TB (01/23/2018 12:27 [...] Address City/State/Zipcode Phone Number [facility] [address] [facility], [place] [address] LABORATORIES 100 * Cytomegalovirus antibody, IgM (01/23/2018 12:27 PM CDT) CMV IgM Negative [facility] Specimen Blood Performing Organization Address City/[facility] Phone Number [address] * EBV-VCA antibody, IgM (01/23/2018 12:27 PM CDT) EBV VCA IgM Negative [facility] Specimen Blood Performing Organization Address City/[facility]/Zipcode Phone Number [address] * EBV-VCA antibody, IgG (01/23/2018 12:27 PM CDT) EBV VCA IgG Positive [facility] Specimen Blood Performing Organization Address City/[facility] Phone Number [address] * RPR (01/23/2018 12:27 PM CDT) RPR Nonreactive Nonreactive [facility] Specimen Blood Performing Organization Address City/[facility]/Zipcode Phone Number [address] * Cytomegalovirus antibody, IgG (01/23/2018 12:27 PM CDT) CMV IgG Positive [facility] Specimen Blood Performing Organization Address City/State/Zipcode Phone Number [facility] [address] * Varicella Zoster Antibody, IgG (01/23/2018 12:27 PM CDT) Varicella IgG 4.9 Al [facility] Specimen Blood Narrative Performed At VARICELLA ZOSTER RESULT INTERPRETATIONS: [facility] <=0.8 AlNonreactive:Presumed non-immune to VZV [facility] 0.9-1.0 AlEquivocal >=1.1 AlReactive:Presumed immune to VZV Performing Organization Address City/[facility] [facility] Phone Number [address] * Uric Acid (01/23/2018 12:27 PM CDT) Uric Acid 5.7 2.6 - 7.2 mg/dL [facility] Specimen Blood Performing Organization Address City/[facility] Phone Number [address] * Phosphorus (01/23/2018 12:27 PM CDT) Phosphorus 4.5 2.3 - 4.7 mg/dL [facility] Specimen Blood Performing Organization Address [facility] Phone Number [address] * PTH, Intact (01/23/2018 12:27 PM CDT) PTH 1,239.1 (H) 8.5 - 72.5 pg/mL [facility] Specimen Blood Performing Organization Address City/[facility] Phone Number [address] * Lactate Dehydrogenase (LDH) (01/23/2018 12:27 PM CDT) LDH 152 125 - 220 U/L [facility] Specimen Blood Performing Organization Address City/[facility] Phone Number [address] [place] [address] [facility] * Gamma Glutamyl Transferase (GGT) (01/23/2018 12:27 PM CDT) GGT 162 (H) 9 - 64 U/L [facility] Specimen Blood Performing Organization Address [facility] [place] [address] [facility] * Lipid panel (01/23/2018 12:27 PM CDT) Triglycerides 107 mg/dL [facility] Cholesterol 151 mg/dL [facility] HDL 49 mg/dL [facility] LDL Calculated 81 mg/dL [facility] Specimen Blood Narrative Performed At Triglyceride Reference Range: [facility] Low Risk <150 [facility] [id number] High Risk 200-499 Very High Risk>=500 Cholesterol Reference Range: Low Risk <200 [id number] High Risk>240 HDL Cholesterol Reference Range: Low Risk >=60 High Risk <40 LDL Cholesterol Reference Range: Optimal<100 Near [id number] [id number] Very High >=190 Performing Organization Address City/[facility] Phone Number [place] [phone] [place] [address] * Comprehensive metabolic panel (01/23/2018 12:27 PM CDT) Protein, Total 7.0 6.0 - 8.3 gm/dL [facility] Albumin 3.8 3.5 - 5.0 g/dL [facility] Alkaline Phosphatase 389 (H) 40 - 150 U/L [facility] Total Bilirubin 0.4 0.2 - 1.2 mg/dL [facility] Sodium 137 136 - 145 meq/L [facility] Potassium 3.9 3.5 - 5.1 meq/L [facility] Chloride 113 (H) 98 - 107 meq/L [facility] CO2 16 (L) 22 - 29 meq/L [facility] BUN 41 (H) 7 - 21 mg/dL [facility] Creatinine 3.40 (H) 0.57 - 1.25 mg/dL [facility] Glucose 92 70 - 105 mg/dL [facility] Calcium 9.2 8.4 - 10.2 mg/dL [facility] AST 29 5 - 34 U/L [facility] ALT 29 6 - 55 U/L [facility] EGFR 14Comment: ESTIMATED GFR IS mL/min/1.73 sq m [facility] NOT ACCURATE CREATININE [facility] CLEARANCE IN PREDICTING GLOMERULAR FILTRATION RATE. ESTIMATED GFR IS NOT APPLICABLE FOR DIALYSIS PATIENTS. Specimen Blood Performing Organization Address City/State/Zipcode Phone Number [facility] [address] [place] [address] [facility] after 08/28/2017 Insurance Payer Benefit Subscriber ID Type Phone Address Plan / Group [employer] - MGD UNITED xxxxxxxx CARE MEDICAL RESOURCES CHOICE POS [employer] - [employer] xxxxxxxx Transplant MGD CARE [facility] ONLY
[2018-08-29] MEDS: SODIUM CHLORIDE 0.9% 250ML IRRIG IR SCH ×2 (17:42→21:44)
[2018-08-29] MEDS ORDERED: DIPHENHYDRAMINE HCL INJ 25 MG in SODIUM CHLORIDE 0.9% 50ML 50 ML IV ONE ×2 (19:00→19:15)
[2018-08-29] MEDS: EPOETIN ALFA 10000 UNIT/ML VIAL SC SCH (19:00)
[2018-08-29] MEDS ORDERED: DEXAMETHASONE PHOS 10MG INJ 20 MG in SODIUM CHLORIDE 0.9% 50ML 50 ML IV ONE ×2 (19:00→19:15)
[2018-08-29] MEDS ORDERED: FAMOTIDINE INJ 20 MG in SODIUM CHLORIDE 0.9% 50ML 50 ML IV ONE ×2 (19:00→19:15)
[2018-08-29] MEDS ORDERED: IRON DEXTRAN INJ 50 MG in SODIUM CHLORIDE 0.9% 100 ML IV ONE (19:00)
[2018-08-29] MEDS ORDERED: IRON DEXTRAN INJ 500 MG in SODIUM CHLORIDE 0.9% 500ML 500 ML IV PRN (19:00)
[2018-08-29] MEDS: SODIUM BICARBONATE 8.4% SYRING 150 ML in DEXTROSE 5% 1,000 ML IV SCH (19:45)
[2018-08-29] MEDS ORDERED: POTASSIUM CHLORIDE 20MEQ/100ML 100 ML IV ONE (19:45)
[2018-08-29] MEDS ORDERED: ETOMIDATE 2 MG/ML 10 ML INJ IV ONE (21:08)
[2018-08-29] MEDS ORDERED: DEXAMETHASONE SOD PHOS INJ 4 MG/ML VIAL ONE (21:08)
[2018-08-29] MEDS ORDERED: NEOSTIGMINE 5 MG/5ML SYR ONE (21:08)
[2018-08-29] MEDS ORDERED: LIDOCAINE HCL 2% LOCAL INJ 5 ML SDV VIAL INJ ONE (21:08)
[2018-08-29] MEDS ORDERED: SEVOFLURANE INHAL SOLN 250 ML PEN BTL ONE (21:08)
[2018-08-29] MEDS ORDERED: ROCURONIUM BROMIDE 10 MG/ML 5ML VIAL ONE (21:08)
[2018-08-29] MEDS ORDERED: ONDANSETRON HCL INJ 2MG/ML 2ML 2 MG/ML VIAL ONE (21:08)
[2018-08-29] MEDS ORDERED: GLYCOPYRROLATE INJ 1MG/ 5 ML SYR ONE (21:08)
[2018-08-29] MEDS ORDERED: MIDAZOLAM HCL 2 MG/2 ML VIAL ONE (21:33)
[2018-08-29] MEDS ORDERED: FENTANYL CITRATE/PF 100MCG/2 ML INJ ONE (21:33)
--- NOTE | 2018-08-29 23:44 | Consultation ---
DATE OF CONSULTATION: August 29, 2018 HISTORY OF PRESENT ILLNESS: Ms. Jessica Garcia is a 63-year-old lady who had extensive rectoperineal surgery for rectal carcinoma, has a permanent colostomy, currently in the ICU, a bit sedated, arousable, follows commands to some extent. 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 Family members by bedside. Patient has existing history of chronic kidney disease stage 4. Initial workup started. Diagnosis for cancer was made while she was undergoing workup for possible kidney transplant and had a colonoscopy. She is currently laying supine, has a Johnson catheter, receiving normal saline at 100 mL an hour. No apparent respiratory distress noted. She is a thin-built lady later, lying supine, no apparent distress. ALLERGIES: TO CEFAZOLIN, HYDROCODONE, IBUPROFEN AND IODINE. CURRENT MEDICATIONS: NS at 100 mL an hour. She is on empiric antibiotics, received also erythropoietin. She is on Dilaudid STOPPER MAKER, Zofran p.r.n., Pepcid 20 mg IV once. Apparently received iron dextran as well. SOCIAL HISTORY: Patient does not smoke or drink. FAMILY HISTORY: Significant for hypertension. PHYSICAL EXAMINATION: GENERAL: Awake, alert, laying supine, no apparent distress. VITALS: Blood pressure of 112/56, pulse rate 77, afebrile. HEAD AND NECK: Cornea clear. Oral mucosa moist. Conjunctival pallor noted. HEART: S1, S2 audible. LUNGS: Clear, supine exam. ABDOMEN: Deferred. LOWER EXTREMITY: No edema. IMPRESSION: 1. Underlying diabetes. 2. Hypertension. 3. Rectal cancer, status post surgery and permanent colostomy. 4. Advanced kidney failure, most likely chronic kidney disease stage 4, possibly 5 due to diabetic nephropathy, underlying hypertension, and multiple comorbidities. Currently, no acute indications for dialysis. She does have evidence of metabolic acidosis with a bicarbonate of 13, potassium borderline low. PLAN: Plan on discontinuing existing IV normal saline. We will start IV bicarbonate. Replace potassium. Discussed with family members. Patient will likely need dialysis, but no acute indications today. Her serum creatinine is grossly underestimating her underlying GFR given the patient's body size and muscle mass. Might need TPN going forward. Please see orders. Job#: [id number]
[2018-08-30] VITALS (25 sets, daily range): BP systolic 105–139; BP diastolic 55–94
[2018-08-30] MEDS: SODIUM CHLORIDE 0.9% 250ML IRRIG IR SCH ×6 (00:15→21:12)
[2018-08-30] MEDS ORDERED: SODIUM CHLORIDE 0.9% 250ML 250 ML ONE (03:01)
[2018-08-30] MEDS: SODIUM BICARBONATE 8.4% SYRING 150 ML in DEXTROSE 5% 1,000 ML IV SCH ×2 (08:30→18:45)
[2018-08-30 09:22] LABS: ALBUMIN 2.4 g/dL (3.5-5.0); ALBUMIN/GLOBULIN RATIO 0.9 (0.8-2.0); ANION GAP 16.8 mmol/L (8-16); CALCIUM 7.7 mg/dL (8.4-10.2); CREATININE, SERUM 3.91 mg/dL (0.57-1.11); POTASSIUM 4.8 mmol/L (3.5-5.1)
[2018-08-30 10:31] LABS: BASOPHILS % 0.1 % (0.0-1.0); HEMATOCRIT 26.9 % (34.2-44.1); HEMOGLOBIN 8.9 g/dL (12.0-16.0); LYMPHOCYTES # (AUTO) 0.2 (1.0-3.2); LYMPHOCYTES % 1.2 % (18.0-39.1); MEAN CORPUSCULAR HEMOGLOBIN 28.9 pg (28-32); MEAN CORPUSCULAR HGB CONC 33.1 g/dL (31-35); MEAN CORPUSCULAR VOLUME 87.3 fL (81-99); MONOCYTES # (AUTO) 0.3 (0.2-0.8); MONOCYTES % 1.9 % (4.4-11.3); NEUTROPHILS # (AUTO) 15.5 (2.1-6.9); NEUTROPHILS % 96.2 % (38.7-80.0); PLATELET COUNT 189 x10e3/uL (140-360); RED BLOOD COUNT 3.08 x10e6/uL (3.6-5.1); RED CELL DISTRIBUTION WIDTH 18.6 % (11.7-14.4)
--- NOTE | 2018-08-30 14:07 | NUR ---
Nutrition Screen Note RD Recommendation for Physician: -Rec GI soft diet as medically appropriate. -Encourage PO and hydration. -Consider Glucerna BID if PO <50% when on regular diet. -Consider TPN if pt is not able to start PO/EN in 7 days. Plan of Care: RD following, monitoring for tolerance and adequacy Nutrition reason for involvement: Nutrition Risk Trigger MST Primary Diagnose(s): 1.Rectal cancer, status post surgery and permanent colostomy 2.Advanced kidney failure, most likely chronic kidney disease stage 4, possibly 5 PMH: CKD IV, DM, HTN Ht: 62in Wt: 109lb BMI: 19.9kg/m2 IBW: 110lb RD Assessment: (08/30) Chart reviewed. Labs and meds reviewed. 63 yo F, who is admitted for rectal cancer mass removal. POD 1. Visited pt in the room. Pt was sleeping; no family presents on bedside. NGT to suction. Unable to conduct NFPA due to pts sleeping position. Pt was discussed during rounds. 2 units of blood were transfused. Colostomy bag presents. Will continue to monitor and follow. Current Diet: NPO Malnutrition Evaluation (08/30/18) Unable to determine at this time. Will re-evaluate at follow-up as appropriate. Diet Education Needs Assessment: Diet education not indicated. Nutrition Care Level: low Signed: Fabiana Jain, MS, RD, LD
--- NOTE | 2018-08-30 14:46 | NUR ---
CASE MANAGEMENT INITIAL ASSESSMENT Skimmer Scoop Operator to bedside to discuss plan of care with patient/family. CM/SW role and care transitions discussed. Anticipated discharge plan discussed along with duration of care. CM discussed patients right to make decisions in care. CM/SW work hours given. Patient lives: PATIENT LIVES WITH SON [place] [address] Admit/Transfer: ED POA/Emergency contact: ATUL PELAEZ: [phone] Current/Previous Home Health: N/A PCP/Follow-up Care: DR. GINI FELIX Current/Previous DME: N/A; PATIENT RESTING AND REQUESTING CM COME BACK ON A LATER DAY Other Services: N/A Employment Status: EMPLOYED Areas of Concerns: NONE Referral Needs: NONE AT THIS TIME Education Needs: N/A IMM/GRECO given and signed (if applicable): NO Goal for discharge: GOAL IS TO RETURN HOME WITH NO NEEDS CM left business card at the bedside with contact information. Name and number was also written on the patients whiteboard. Patient verbalized understanding of discussion. CM will follow-up with ongoing discharge and transition of care needs
[2018-08-30] MEDS ORDERED: CENTRAL TPN FORMULA 1 BAG IV SCH ×2 (15:00→20:00)
[2018-08-30] MEDS: PANTOPRAZOLE 40 MG 10ML VIAL IV SCH (17:00)
--- NOTE | 2018-08-30 23:08 | NUR ---
patient refused a bath
[2018-08-31] VITALS (24 sets, daily range): BP systolic 101–143; BP diastolic 50–100
[2018-08-31] MEDS ORDERED: DEXTROSE 50% SYRINGE 50 ML IV PRN
[2018-08-31] MEDS: SODIUM BICARBONATE 8.4% SYRING 150 ML in DEXTROSE 5% 1,000 ML IV SCH (00:02)
--- NOTE | 2018-08-31 00:15 | NUR ---
talked to Dr. Alec Hartman concerning the patients blood sugar which was 295. Pt was started on TPN at 1999 on 08/30/18
[2018-08-31] MEDS: SODIUM CHLORIDE 0.9% 250ML IRRIG IR SCH ×4 (00:40→12:15)
[2018-08-31] MEDS: INSULIN REGULAR, HUMAN 100 UNIT/1 ML 3ML VIAL SQ SCH ×4 (00:41→17:50)
[2018-08-31 04:49] LABS: BASOPHILS % 0.1 % (0.0-1.0); HEMATOCRIT 24.1 % (34.2-44.1); HEMOGLOBIN 8.1 g/dL (12.0-16.0); LYMPHOCYTES # (AUTO) 0.2 (1.0-3.2); LYMPHOCYTES % 1.5 % (18.0-39.1); MEAN CORPUSCULAR HEMOGLOBIN 28.2 pg (28-32); MEAN CORPUSCULAR HGB CONC 33.6 g/dL (31-35); MONOCYTES # (AUTO) 0.3 (0.2-0.8); MONOCYTES % 2.6 % (4.4-11.3); NEUTROPHILS # (AUTO) 11.6 (2.1-6.9); NEUTROPHILS % 95.2 % (38.7-80.0); PLATELET COUNT 166 x10e3/uL (140-360); RED BLOOD COUNT 2.87 x10e6/uL (3.6-5.1); RED CELL DISTRIBUTION WIDTH 19.5 % (11.7-14.4)
[2018-08-31 05:02] LABS: ANION GAP 16.1 mmol/L (8-16); CALCIUM 7.5 mg/dL (8.4-10.2); CREATININE, SERUM 4.35 mg/dL (0.57-1.11); POTASSIUM 4.1 mmol/L (3.5-5.1)
--- NOTE | 2018-08-31 07:15 | NUR ---
Patient received awake, alert and Ox3. Slovak speaking only and I speak Slovak also. Respirations are even and unlabored. Denies any pain or discomfort at this time. On Dilaudid ROD PLACER pump on demand and patient is tolerating it well. Abdominal dressing is dry and intact. Left colostomy has pink stoma and no fecal matter present in bag as of it. V/S are stable.
--- NOTE | 2018-08-31 07:15 | NUR ---
Patient received awake, alert and Ox3. Respirations are even and unlabored. On dilaudid TWX OPERATOR pump on demand only and patient denies any pain or discomfort at this time. V/S are stable. A
[2018-08-31] MEDS ORDERED: INSULIN REGULAR, HUMAN 100 UNIT/1 ML 3ML VIAL SQ SCH ×2 (07:30)
--- NOTE | 2018-08-31 10:10 | NUR ---
Dr. Patel here at bedside to see patient
--- NOTE | 2018-08-31 10:43 | NUR ---
Patient assisted to bedside chair and sitting in chair and tolerating well. V/S are stable.
[2018-08-31] MEDS ORDERED: SODIUM BICARBONATE 8.4% SYRING 150 ML in DEXTROSE 5% 1,000 ML IV SCH ×2 (11:00→15:30)
--- NOTE | 2018-08-31 13:10 | Progress Note ---
DATE: August 31, 2018 She is making urine. Denies any trouble breathing. NG tube in place. Creatinine up to 4.35. No nausea or vomiting. OBJECTIVE VITALS: Temperature 98.5, pulse 99, blood pressure is 127/65. HEENT: NG tube in place. NECK: Unable to see JVD. CHEST: Clear at this time. Bilateral breath sounds are equal. EXTREMITIES: No trace edema. ASSESSMENT 1. Status post abdominoperineal resection. 2. History of chronic kidney disease, 4 with acute kidney injury. 3. Anemia. 4. Volume status is reasonable. 5. Metabolic acidosis. PLAN: From a renal standpoint, I see no urgent need for dialysis. Monitor I's and Os. A.m. labs. Please add acetate to the TPN. Serum CO2 is now coming up. Will follow along. Job#: [id number] OR
--- NOTE | 2018-08-31 16:35 | NUR ---
ICU [address] Nutrition Intervention Note RD Recommendation(s) for Physician: - Current custom central TPN @ 50mL/hr of 50% dextrose, 10% AA in addition of 50g lipids (MWF), provides total of 1453kcal, 300g dextrose, 60g AA and 1200mL fluids. - Rec to decrease dextrose to 150g/d due to increased risk of refeeding syndrome, GIR > 5mg/kg/min, and BG has been running around 280 with TPN. - When BG is stable, gradually increase dextrose to 200g/d to adequate meets her calorie needs. - BG check q 6hr with corrective dose insulin. - BMP, Phos, Mg repeat daily (notified RN); prealbumin, LFT, TG monitor weekly - When GI tract is ok to use, advance to GI soft diet as tolerated - Discontinue PN when PO intake on regular diet >50% The patient meets criteria for MODERATE protein-calorie malnutrition. Plan of Care: RD following, monitoring for tolerance and adequacy, TPN Nutrition reason for involvement: New TPN RD Assessment 08/31 Chart reviewed. Pt is s/p abdominoperineal resection on 08/29. NGT to suction with 300cc dark green secretion. Colostomy bag presents. Renal consulted for worsening renal fx. Visited pt in the room. Pt was sitting on bedside with no acute distress. No GI complains during my visit. Explained the purpose of TPN to family. Per son, pt has lost significant amount of weight for the past 2 years. Pt weighed about 160lbs 2 years ago. Last weight check in June 2018, pt weighted about 95lbs. Weight on 08/30 was 109lb. Pt has regained a couple lbs since June. Pt has been following a renal diet for the last year. Per son, she was placed on liquid diet IMMIGRATION COORDINATOR to prepare for her surgery. Pt has some physical signs of muscle and fat loss (see below). TPN was started on @50mL/hr (50% dextrose, 10% protein). No RD consult ordered. BG has been running high at around ~280. Calculated GIR was >5mg/kg/min. No Phos and Mg ordered (Notified RN). Pt is also getting 5% dextrose from IV. Phos and Mg result needed to determine if pt is at risk for refeeding syndrome. RD rec to decrease dextrose to 150g/d until BG is stable. Will continue to monitor and follow. (08/30) Chart reviewed. Labs and meds reviewed. 63 yo F, who is admitted for rectal cancer mass removal. POD 1. Visited pt in the room. Pt was sleeping; no family presents on bedside. NGT to suction. Unable to conduct NFPA due to pts sleeping position. Pt was discussed during rounds. 2 units of blood were transfused. Colostomy bag presents. Will continue to monitor and follow. Principal Problems/Diagnoses: 1. Rectal cancer, status post surgery and permanent colostomy 2. Advanced kidney failure, most likely chronic kidney disease stage 4, possibly 5 PMH: CKD IV, DM, HTN GI: NGT to suction Skin: no wound pressure Labs: (08/31) BUN 59 H, Creatinine 4.35 H, Glucose 280 H, Ca 7.5 L Meds: 5% dextrose, insulin Ht: 62in Wt: 109lb BMI: 19.9kg/m2 IBW: 110lb Malnutrition Evaluation (08/31/18) The patient meets criteria for MODERATE protein-calorie malnutrition. Energy intake: <75% of estimated energy requirements for >1 month Weight loss: Lost some weight but pt has been working in gaining more weight. BMI is at 19.9kg/m2 but stable. Fat loss: Moderate some protrusion of clavicle, loss of fat over triceps Muscle loss: Moderate slight depression of temporal Supporting Evidence: Fluid accumulation: unable to evaluate Functional Status: no changes pt is independent and able to do ADL by herself. Nutrition Prescription (Diet Order): NPO Estimated Nutritional Needs: Calories: 1250 1750kcal (25-35kcal/kg/d) Weight used : Actual BW Protein: 60-75g (1.2-1.5g/kg/d) Weight used: Actual BW Diet Adequacy: Meeting calorie needs, Meeting protein needs Diet Education Needs Assessment: Diet education indicated and patient agreeable. educated about TPN Nutrition Care Level: high Nutrition Diagnosis: Inadequate oral intake related to current medical status as evidenced by pt requiring TPN as main source of nutrition. Goal: Patient will meet 75-100% of estimated needs by follow up Progress: Progressing Interventions: Texture-modified diet, Composition, Rate, Route, IVF, Prescription medications Monitoring/Evaluation: Total energy intake, Total protein intake, Formula/Solution, IVF, Prescription medication, Modified diet, Weight change Signed: Fabiana Jain, MS, RD, LD
[2018-08-31] MEDS: PANTOPRAZOLE 40 MG 10ML VIAL IV SCH (16:44)
[2018-08-31] MEDS: EPOETIN ALFA 10000 UNIT/ML VIAL SC SCH (19:00)
--- NOTE | 2018-08-31 19:00 | NUR ---
Received bedside report from Brea YOUNG. Patient is at baseline orientation with no signs of acute distress. Bed is locked in lowest position with call light within reach.
[2018-08-31] MEDS: CENTRAL TPN FORMULA 1 BAG IV SCH (20:09)
[2018-09-01] VITALS (24 sets, daily range): BP systolic 90–130; BP diastolic 50–103
[2018-09-01] MEDS: INSULIN REGULAR, HUMAN 100 UNIT/1 ML 3ML VIAL SQ SCH ×4 (00:13→17:26)
[2018-09-01 04:33] LABS: HEMATOCRIT 24.4 % (34.2-44.1); HEMOGLOBIN 8.4 g/dL (12.0-16.0); LYMPHOCYTES # (AUTO) 0.2 (1.0-3.2); LYMPHOCYTES % 1.5 % (18.0-39.1); MEAN CORPUSCULAR HGB CONC 34.4 g/dL (31-35); MEAN CORPUSCULAR VOLUME 84.1 fL (81-99); MONOCYTES # (AUTO) 0.6 (0.2-0.8); MONOCYTES % 4.6 % (4.4-11.3); NEUTROPHILS # (AUTO) 12.6 (2.1-6.9); NEUTROPHILS % 92.9 % (38.7-80.0); PLATELET COUNT 163 x10e3/uL (140-360); RED CELL DISTRIBUTION WIDTH 19.5 % (11.7-14.4)
[2018-09-01 04:52] LABS: ANION GAP 15.9 mmol/L (8-16); CALCIUM 7.5 mg/dL (8.4-10.2); CREATININE, SERUM 3.87 mg/dL (0.57-1.11); POTASSIUM 3.9 mmol/L (3.5-5.1)
[2018-09-01 05:11] LABS: MAGNESIUM 2.6 MG/DL (1.3-2.1); PHOSPHORUS 4.6 MG/DL (2.3-4.7)
--- NOTE | 2018-09-01 12:00 | NUR ---
Dr. Cortez here to see patient and wrote new TPN orders
--- NOTE | 2018-09-01 12:03 | Progress Note ---
DATE: September 01, 2018 SUBJECTIVE: Sitting up, trying to eat ice chips. Denies any dyspnea. No swelling. Making urine. Urine output was 3.2 liters, intake was 2.5. PHYSICAL EXAMINATION GENERAL: Lying in bed, in no distress. VITAL SIGNS: Temperature is 97.6, pulse 96, blood pressure 123/59. CHEST: Clear. EXTREMITIES: No edema. ABDOMEN: With ostomy. LABS: Hemoglobin is up to 8.4. Creatinine is down to 3.8 from 4.3. Serum CO2 of 26, potassium 3.9. ASSESSMENT 1. Acute tubular necrosis, chronic kidney disease stage 4, with recovery volume reasonable. 2. Metabolic acidosis, corrected. PLAN: Continue same TPN. Once p.o. intake is confirmed, we can stop it. Recheck chemistries in the morning. No emergent need for dialysis. We will follow along. Job#: [id number] PUN
--- NOTE | 2018-09-01 14:15 | NUR ---
Dr. Katy Ramon (Cardio) here to see patient.
[2018-09-01] MEDS: PANTOPRAZOLE 40 MG 10ML VIAL IV SCH (16:15)
--- NOTE | 2018-09-01 18:25 | NUR ---
Left colostomy bag inflated and full of gas and small amount of brown stool (approx. 100cc). Contents released from colostomy bag and disposed off and tolerated well by patient. Denies any pain or discomfort. Continues on WAFER FAB OPERATOR D
[2018-09-01] MEDS ORDERED: HYDROMORPHONE 1MG/1ML INJ IV PRN (18:45)
[2018-09-01] MEDS: CENTRAL TPN FORMULA 1 BAG IV SCH (20:24)
[2018-09-01] MEDS: BISACODYL 10 MG SUPP PR SCH (21:25)
[2018-09-02] VITALS (16 sets, daily range): BP systolic 83–118; BP diastolic 39–63
[2018-09-02] MEDS: INSULIN REGULAR, HUMAN 100 UNIT/1 ML 3ML VIAL SQ SCH ×5 (00:06→23:58)
[2018-09-02 05:28] LABS: MAGNESIUM 2.8 MG/DL (1.3-2.1); PHOSPHORUS 4.4 MG/DL (2.3-4.7)
[2018-09-02 06:25] LABS: ANION GAP 14.8 mmol/L (8-16); CREATININE, SERUM 3.87 mg/dL (0.57-1.11); POTASSIUM 4.8 mmol/L (3.5-5.1)
--- NOTE | 2018-09-02 07:15 | NUR ---
Patient received asleep and awakened for assessment. Respirations are even and unlabored. Denies any pain at this time. Abdominal dressing is dry and intact. Left colostomy has moderate amount of brown, soft, semi-liquid stool and stoma is pink.
[2018-09-02] MEDS: BISACODYL 10 MG SUPP PR SCH (08:12)
--- NOTE | 2018-09-02 10:08 | NUR ---
Dr. Putnam here to see patient
--- NOTE | 2018-09-02 12:00 | NUR ---
Dr. Cortez called and new orders to renew same TPN received and entered and pharmacy notified.
--- NOTE | 2018-09-02 12:12 | NUR ---
Report called to Di Rojas RN and patient will be going to [facility] to Room 112. Patient and son(Edwin) aware of new room change.
--- NOTE | 2018-09-02 12:35 | NUR ---
Patient taken via wheelchair by HANNAH Sunshine to [facility] to room 112 with son Edwin accompanying patient. Patient is comfortable and in good spirits. Respirations are even and unlabored and O2 sats are 100% on room air. Patient did experience some moderate pain upon transferring to wheelchair and says that she will ask for pain medication upon arrival to her new room.
[2018-09-02] MEDS: ACETAMINOPHEN/CODEINE 300MG - 30MG TAB PO PRN ×2 (13:15→20:13)
--- NOTE | 2018-09-02 13:15 | NUR ---
Received patient from ICU. Patient A/O X3, Montenegrin speaking only, son at bedside to translate. Even respirations and unlabored breathing on room air. Johnson in place with clear yellow urine. Right hand 18g saline lock, Left upper port-a-cath subclavian with TPN at 50ml/hr. Midline incision with colostomy, Maria Teresa drain to rectum with sutures. Bed in lowest position, wheels locked, side rails up x2, call light in reach.
[2018-09-02] MEDS: PANTOPRAZOLE 40 MG 10ML VIAL IV SCH (16:18)
--- NOTE | 2018-09-02 18:04 | NUR ---
Changed out dressing on rectum, minimal drainage discarded, new ABD pad placed.
[2018-09-02] MEDS ORDERED: CENTRAL TPN FORMULA 1 BAG IV SCH (20:00)
[2018-09-03] VITALS (7 sets, daily range): BP systolic 95–112; BP diastolic 51–55
[2018-09-03] MEDS: ACETAMINOPHEN/CODEINE 300MG - 30MG TAB PO PRN ×2 (05:12→09:12)
[2018-09-03] MEDS: INSULIN REGULAR, HUMAN 100 UNIT/1 ML 3ML VIAL SQ SCH ×3 (06:00→18:00)
[2018-09-03 06:17] LABS: ANION GAP 15.1 mmol/L (8-16); CALCIUM 7.9 mg/dL (8.4-10.2); CREATININE, SERUM 4.07 mg/dL (0.57-1.11); POTASSIUM 5.1 mmol/L (3.5-5.1)
[2018-09-03 06:38] LABS: MAGNESIUM 2.7 MG/DL (1.3-2.1); PHOSPHORUS 4.7 MG/DL (2.3-4.7)
--- NOTE | 2018-09-03 08:50 | NUR ---
Received patient this morning and a/ox3, VSS, denies any pains and no resp distress, rounds by Dr. Cortez and orders to taper TPN and eventually D/C today. Will monitor.
--- NOTE | 2018-09-03 09:10 | NUR ---
Patient alert and responsive, no resp distress, TPN in place running and tapered as ordered, c/o abdl pains and medicated at this time, tolerated about 40% of breakfast, denies nausea, will monitor
--- NOTE | 2018-09-03 09:20 | Progress Note ---
DATE: September 03, 2018 She is feeling okay. Denies any swelling. Making urine. She is status post abdominoperineal resection on August 29, 2018. Sustained acute tubular necrosis. After that, underlying history of CKD, stage 4. Baseline creatinine in 2018 was 3.5 or so. Denies any swelling. Making urine. Hemoglobin is 8.4. Denies any dyspnea. Potassium is 5.1 on TPN. Today, creatinine is 4.07 and BUN of 87. PHYSICAL EXAMINATION GENERAL: Laying in bed in no distress. VITALS: Temperature 97.3, blood pressure 102/52, pulse 82. CHEST: Clear. No edema. CARDIAC: Normal heart sounds. Sounds regular. ABDOMEN: Bandaged. MEDICATIONS: Reviewed. No antihypertensives. LABS: Creatinine 4.07, BUN 87, chloride 96, potassium is 5.1. I's and O's showing intake of 1.5 L and output of 2.6 L. ASSESSMENT 1. Acute tubular necrosis on chronic kidney disease, stage 4. 2. Nephrosclerosis. 3. Volume status reasonable at this point. 4. Acidosis, improved. PLAN: Encourage p.o. intake. Discontinue TPN as may cause more electrolyte issues than it is worth. A.m. chemistries. No emergent need for dialysis. Will follow along. Job#: [id number] EDUARDA
--- NOTE | 2018-09-03 15:26 | NUR ---
Nutrition Intervention Note RD Recommendation(s) for Physician: - Discontinue TPN after current bag - Recommend Nepro supplement BID - Advance to GI soft diet - Encourage po intake as tolerated The patient meets criteria for MODERATE protein-calorie malnutrition. Plan of Care: RD following, monitoring for tolerance and adequacy, TPN, ONS rec's Nutrition reason for involvement: follow up RD Assessment 09/03: Follow up. Pt sleeping at time of visit, TPN weaned to 25 ml/hr with plan to discontinue after current order. NGT discontinued over weekend. Pt on full liquid diet currently with plan to advance to GI Soft per discussion during am rounds. Pt received ostomy care training per am rounds. Pt tolerating 50-100% of CL and full liquid diet per chart. Pt with acute tubular necrosis on CKD 4 per MD notes, no plan for HD intervention at this time. Chart reviewed. Will monitor and continue to follow. 08/31 Chart reviewed. Pt is s/p abdominoperineal resection on 08/29. NGT to suction with 300cc dark green secretion. Colostomy bag presents. Renal consulted for worsening renal fx. Visited pt in the room. Pt was sitting on bedside with no acute distress. No GI complains during my visit. Explained the purpose of TPN to family. Per son, pt has lost significant amount of weight for the past 2 years. Pt weighed about 160lbs 2 years ago. Last weight check in June 2018, pt weighted about 95lbs. Weight on 08/30 was 109lb. Pt has regained a couple lbs since June. Pt has been following a renal diet for the last year. Per son, she was placed on liquid diet [employer] CONSULTANT to prepare for her surgery. Pt has some physical signs of muscle and fat loss (see below). TPN was started on @50mL/hr (50% dextrose, 10% protein). No RD consult ordered. BG has been running high at around ~280. Calculated GIR was >5mg/kg/min. No Phos and Mg ordered (Notified RN). Pt is also getting 5% dextrose from IV. Phos and Mg result needed to determine if pt is at risk for refeeding syndrome. RD rec to decrease dextrose to 150g/d until BG is stable. Will continue to monitor and follow. (08/30) Chart reviewed. Labs and meds reviewed. 63 yo F, who is admitted for rectal cancer mass removal. POD 1. Visited pt in the room. Pt was sleeping; no family presents on bedside. NGT to suction. Unable to conduct NFPA due to pts sleeping position. Pt was discussed during rounds. 2 units of blood were transfused. Colostomy bag presents. Will continue to monitor and follow. Principal Problems/Diagnoses: 1. Rectal cancer, status post surgery and permanent colostomy 2. Advanced kidney failure, most likely chronic kidney disease stage 4, possibly 5 PMH: CKD IV, DM, HTN GI: LBM 09/03- liquid stool + colostomy Skin: no wound pressure Labs: 09/03: Na 134, K 5.1, BUN 87, Cr 4.07, Mg 2.7, Phos 4.7, POC Gluc 107-132 (08/31) BUN 59 H, Creatinine 4.35 H, Glucose 280 H, Ca 7.5 L Meds: protonix, insulin, epogen Ht: 62in Wt: 109lb BMI: 19.9kg/m2 IBW: 110lb Malnutrition Evaluation (08/31/18) The patient meets criteria for MODERATE protein-calorie malnutrition. Energy intake: <75% of estimated energy requirements for >1 month Weight loss: Lost some weight but pt has been working in gaining more weight. BMI is at 19.9kg/m2 but stable. Fat loss: Moderate some protrusion of clavicle, loss of fat over triceps Muscle loss: Moderate slight depression of temporal Supporting Evidence: Fluid accumulation: unable to evaluate Functional Status: no changes pt is independent and able to do ADL by herself. Nutrition Prescription (Diet Order): Full liquids Estimated Nutritional Needs: Calories: 1250 1750kcal (25-35kcal/kg/d) Weight used : Actual BW Protein: 60-75g(1.2-1.5g/kg/d) Weight used: Actual BW Diet Adequacy: Not meeting calorie needs, not meeting protein needs Diet Education Needs Assessment: Diet education indicated and patient agreeable. educated about TPN at prior visit Nutrition Care Level: Mod Nutrition Diagnosis: Inadequate oral intake related to current medical status as evidenced by pt requiring TPN as main source of nutrition. Goal: Patient will meet 75-100% of estimated needs by follow up Progress: Progressing Interventions: Texture-modified diet, Composition, Rate, Route, IVF, Prescription medications Monitoring/Evaluation: Total energy intake, Total protein intake, Formula/Solution, IVF, Prescription medication, Modified diet, Weight change Signed: Linda Mcnamara RD, DIOGENES, CNSC
[2018-09-03] MEDS: PANTOPRAZOLE 40 MG 10ML VIAL IV SCH (17:04)
[2018-09-03] MEDS: EPOETIN ALFA 10000 UNIT/ML VIAL SC SCH (19:00)
--- NOTE | 2018-09-03 19:03 | NUR ---
TPN was tapered to 25cc/hr and then D/C'd at this time per Dr. Cortez's orders, no s/sx of hypo/hyperglycemia, FS-120, report given to on coming nurse and rounds completed.
--- NOTE | 2018-09-03 20:00 | NUR ---
PT IN BED, FAMILY AT BEDSIDE, MIDLINE INCISION INTACT, DRESSING CDI NOT DRAINAGE NOTED, COLOSTOMY TO LEFT SIDE OF ABD INCISION, PT HAS GONZALEZ CATH INTACT AND DRAINING, TPN D/CD, CONTINURE TO MONITOR PT, VS STABLE, PT ON FL DIET, CALL LIGHT IN REACH
[2018-09-04] VITALS (8 sets, daily range): BP systolic 104–115; BP diastolic 50–56
--- NOTE | 2018-09-04 05:45 | NUR ---
PT IN BED, VS STABLE, BS WNL, CALL LIGHT IN REACH, NO DISTRESS OR PAIN NOTED, TOLD TO GURDEEP FOR NEEDS
[2018-09-04] MEDS: INSULIN REGULAR, HUMAN 100 UNIT/1 ML 3ML VIAL SQ SCH ×4 (06:00→16:20)
[2018-09-04 06:29] LABS: ANION GAP 16.5 mmol/L (8-16); CALCIUM 7.9 mg/dL (8.4-10.2); CREATININE, SERUM 4.64 mg/dL (0.57-1.11); MAGNESIUM 2.6 MG/DL (1.3-2.1); PHOSPHORUS 6.1 MG/DL (2.3-4.7)
[2018-09-04 06:34] LABS: POTASSIUM 6.5 mmol/L (3.5-5.1)
--- NOTE | 2018-09-04 06:44 | NUR ---
LAB CALLED FOR CRITICAL POTASSIUM OF 6.5 DR GAONA OFFICE CALLED
[2018-09-04] MEDS ORDERED: DEXTROSE 50% SYRINGE 50 ML IV STA (06:51)
[2018-09-04] MEDS ORDERED: CALCIUM GLUCONATE 10% INJ 4.65 MEQ in SODIUM CHLORIDE 0.9% 50ML 50 ML IV ONE (07:00)
[2018-09-04] MEDS ORDERED: INSULIN REGULAR, HUMAN 100 UNIT/1 ML 3ML VIAL IV ONE ×2 (07:00→09:30)
[2018-09-04] MEDS ORDERED: SOD POLYSTYRENE SULFONATE SUSP 15 GM/60 ML BTL PO ONE (07:00)
--- NOTE | 2018-09-04 07:10 | NUR ---
DR ZELAYA CALLED NEW ORDERS PUT IN
--- NOTE | 2018-09-04 07:32 | NUR ---
pt resting in bed, no c/o pain or s/s distress. will continue to monitor.
--- NOTE | 2018-09-04 09:11 | NUR ---
paged Dr Boothe to clarify orders given to previous nurse
[2018-09-04] MEDS: DEXTROSE 50% SYRINGE 50 ML IV PRN ×2 (09:53→09:55)
[2018-09-04] MEDS: HYDROMORPHONE 2MG/ML 2 MG/ML ML IV PRN ×2 (09:53→20:26)
[2018-09-04] MEDS: ONDANSETRON HCL INJ 2MG/ML 2ML 2 MG/ML VIAL IV PRN (09:53)
[2018-09-04 10:24] LABS: ANION GAP 18.4 mmol/L (8-16); CALCIUM 8.2 mg/dL (8.4-10.2); CREATININE, SERUM 4.69 mg/dL (0.57-1.11)
[2018-09-04 10:33] LABS: POTASSIUM 6.4 mmol/L (3.5-5.1)
--- NOTE | 2018-09-04 11:24 | NUR ---
dr ortega was paged regarding K lab. pt bs stable. dr masonod on unit, aware of K and poc. pt stable
[2018-09-04] MEDS ORDERED: SYRING IV ONE ×3 (12:00)
[2018-09-04] MEDS ORDERED: INSULIN REGULAR IV ONE ×6 (12:00→12:15)
[2018-09-04] MEDS ORDERED: SODIUM BICARBONATE IV ONE ×3 (12:00)
[2018-09-04] MEDS ORDERED: HUMAN IV ONE ×6 (12:00→12:15)
[2018-09-04] MEDS ORDERED: [UNRECOGNIZED DRUG - OTHER] IV ONE ×3 (12:00)
[2018-09-04] MEDS ORDERED: SODIUM BICARBONATE 8.4% IV ONE ×3 (12:15)
[2018-09-04] MEDS ORDERED: [UNRECOGNIZED DRUG - OTHER] IV ONE ×3 (12:15)
--- NOTE | 2018-09-04 12:48 | NUR ---
dr ortega rounded on pt, suggested dialysis. all mds in agreement. per radiology, flouro machine being worked on so wouldnt be able to do until late tonight or tomorrow morning. dt this, drip ordered. now able to have temp cath placed in dif department this afternoon. dialysis nurse aware also. dr vane conrad on unit and discussed with pt again about current need for dialysis. pt ok. holding insuling ss dt pt being temp npo for procedure.
--- NOTE | 2018-09-04 13:02 | Progress Note ---
DATE: September 04, 2018 Chemistries tend to be worse. She herself is feeling okay. Potassium has been high. This was repeated and still 6.4. Hemoglobin 7.8. Sodium 130. Creatinine has been climbing at 4.69 with BUN 92. OBJECTIVE VITALS: Temperature is 98.7, pulse 107, blood pressure 111/53. CHEST: Clear. EXTREMITIES: No edema. VASCULAR: Port in place. ABDOMEN: With a bandage. NEURO: Alert and appropriate. ASSESSMENT 1. Acute kidney injury, presumably acute tubular necrosis. 2. Underlying chronic kidney disease, stage 4. 3. Hyperkalemia, which is moderate to severe. Plan: Will request dialysis catheter placement. I think it is safer to get some metabolic clearance. The other issues are the potassium would jeopardize cardiac function and cause bradycardia and so forth. 4. Currently nonoliguric. 5. Currently still hoping for renal recovery to baseline. PLAN 1. Request dialysis catheter placement. 2. Plan dialysis today. In the meantime, temporize with D10, insulin and bicarbonate drip. Repeat potassium. Keep a low potassium intake. Will follow along. Job#: [id number]
[2018-09-04 13:54] LABS: INR 0.99
--- NOTE | 2018-09-04 14:16 | NUR ---
consent obtained for dialysis cath, pt and son aware of procedure and need as explained by dr vane conrad, dr ortega reviewed with pt earlier today. contacted son to ensure aware, stated he was ed on procedure for cath and dialysis, pt and family ok with procedure and POC. pt leaving unit for procedure, stable.
--- NOTE | 2018-09-04 15:47 | Consultation ---
DATE OF CONSULTATION: September 04, 2018 CARDIOLOGY CONSULTATION REASON FOR CONSULTATION: Preop clearance for AV fistula placement. HISTORY OF PRESENT ILLNESS: This is a 63-year-old woman with a history of hypertension, diabetes mellitus, rectal cancer status post surgical resection, and chronic kidney disease currently initiated on hemodialysis. She is currently feeling well. Denies any chest pain, shortness of breath, palpitations, PND, orthopnea or any other cardiovascular symptoms. She has never had a heart attack or any cardiovascular complications. We have been consulted for possible AV fistula placement. She states she has no chest pain with ambulation at home. REVIEW OF SYSTEMS: A 12-point review of systems was conducted and was negative other than that stated above in the HPI. PAST MEDICAL HISTORY: As stated above in the HPI. PAST SURGICAL HISTORY: Rectal cancer status post surgical resection and permanent colostomy. FAMILY HISTORY: No premature coronary artery disease or sudden cardiac . SOCIAL HISTORY: No current illicit drug use, alcohol use or tobacco use. ALLERGIES: CEFAZOLIN, HYDROCODONE, IBUPROFEN, IODINE. MEDICATIONS: See medication reconciliation form. PHYSICAL EXAMINATION VITAL SIGNS: Temperature 98.6, heart rate 97, respirations 20, blood pressure 104/52, oxygen saturation 95% on room air. GENERAL: She is a chronically ill-appearing, thin woman. HEAD: Normocephalic and atraumatic. EYES: The extraocular muscles are intact. Conjunctivae are clear. NECK: No JVD. No bruits. CARDIOVASCULAR: Regular rate and rhythm. No murmurs. LUNGS: Clear to auscultation. ABDOMEN: Soft, nontender and nondistended. EXTREMITIES: No edema. VASCULAR: Diminished pulses. SKIN: Warm, dry and intact. CARDIOVASCULAR MEDICATIONS: Reviewed. LABORATORY DATA: White blood cell count 13.5, hemoglobin 8.4, platelets 163. Potassium 6.4, creatinine 4.6. A 12-lead electrocardiogram shows normal sinus rhythm. ASSESSMENT 1. Preoperative cardiovascular risk assessment. 2. End-stage renal disease on dialysis. 3. Chronic debility. 4. Malnutrition. 5. Hypertension. RECOMMENDATIONS: The patient has overall poor metabolic equivalents. She has no active cardiac conditions or symptoms. Will check a 2-D echocardiogram to assess left ventricular function. If that is within normal limits, the patient may proceed with AV fistula placement per nephrology. Job#: [id number] DESTIENY
--- NOTE | 2018-09-04 16:22 | NUR ---
Critical Potassium 6.9 reported to primary nurse and dialysis nurse that was at the nurses' station.
--- NOTE | 2018-09-04 16:31 | Diagnostic Imaging Report ---
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 Villa Pre-operative diagnosis: Acute kidney injury Post-operative diagnosis: Acute kidney injury Conscious Sedation: None Additional Medications: Lidocaine 1% for local anesthesia Fluoroscopy time: 0.4 minutes Dose-area Product: 0.52 Gycm2. Frontal Air Kerma: 1.63 mGy Contrast used: None Estimated blood loss: Minimal Blood products administered: None Specimens: None Implants: 12 Faroese 13 cm dual-lumen hemodialysis catheter DISCUSSION: Informed consent was obtained and documented in the medical record after discussion of risks and benefits. The patient was placed in the supine position on the table. Preliminary sonographic evaluation confirmed patency of the right internal jugular vein, evidenced by compressibility. The right neck was prepped and draped in the standard sterile fashion. 1% lidocaine was infiltrated into the skin and subcutaneous tissues for local anesthesia. Then under continuous sonographic guidance, an 18-gauge singlewall needle was used to access the right internal jugular vein. A permanent sonographic image was stored in the medical record. A 0.0 3 5-in. wire was advanced centrally into the IVC under fluoroscopic guidance. The needle was removed over the wire and the tract was dilated. Then a 12 Faroese 13 cm dual-lumen hemodialysis catheter was advanced over the wire to full depth. The wire was removed, and the catheter tip was positioned at the superior cavoatrial junction. Each lumen showed adequate bidirectional flow and was flushed with sterile saline. The catheter was secured to the skin with monofilament nylon suture and a sterile dressing was applied. The patient tolerated the procedure well without immediate complication. FINDINGS: Patent right internal jugular vein. IMPRESSION: Successful placement of a 12 Faroese, 13 cm dual-lumen high flow central venous catheter by a right internal jugular approach under sonographic and fluoroscopic guidance. Signed by: Dr. Kiet Villa M.D. on 09/04/2018 4:28 PM
--- NOTE | 2018-09-04 16:32 | NUR ---
paged renal MD fragoso K updated lab. pt back on unit, cath in place. dialysis nurse on unit.
--- NOTE | 2018-09-04 16:38 | NUR ---
dr ortega aware of pt K 6.9 and dialysis nurse on unit with orders
[2018-09-04] MEDS: PANTOPRAZOLE 40 MG 10ML VIAL IV SCH (17:20)
--- NOTE | 2018-09-04 19:05 | NUR ---
Received patient awake on bed, family members at the bedside, ongoing hemodialysis, hough catheter in place. Call light within easy reached, advised to call for assistance when needed, SCD's on, bed in low position and locked, bed alarm on. Will continue to monitor
--- NOTE | 2018-09-04 20:26 | NUR ---
dressing changed to the rectum, premedicated with Dilaudid IV per patient request
--- NOTE | 2018-09-04 21:00 | NUR ---
HD done, clean up only for 2 hours per HD RN, pt is for hemodialysis again tomorrow per HD nurse
[2018-09-05] VITALS (7 sets, daily range): BP systolic 102–131; BP diastolic 51–73
[2018-09-05] MEDS: INSULIN REGULAR, HUMAN 100 UNIT/1 ML 3ML VIAL SQ SCH ×4 (06:00→18:56)
[2018-09-05 06:14] LABS: ANION GAP 14.3 mmol/L (8-16); CALCIUM 7.9 mg/dL (8.4-10.2); CREATININE, SERUM 3.23 mg/dL (0.57-1.11); PHOSPHORUS 5.9 MG/DL (2.3-4.7); POTASSIUM 5.3 mmol/L (3.5-5.1)
--- NOTE | 2018-09-05 07:00 | NUR ---
dressing changed to the rectum, ABD pads and gauze in place.
--- NOTE | 2018-09-05 09:58 | Progress Note ---
DATE: September 05, 2018 She feels okay. Tolerated dialysis. Potassium is improved. Still making some urine. Denied any trouble breathing or swelling in the legs. PHYSICAL EXAMINATION GENERAL: Laying in bed. Thinly built. VITALS: Temperature 99.5, pulse 104, blood pressure 102/55. CHEST: Clear. EXTREMITIES: No edema. ABDOMEN: Soft. NEURO: Alert and appropriate. Speech is normal. Hemoglobin is 8.4. Potassium is 5.3. Creatinine 3.23, BUN 50, serum CO2 25. This is after dialysis yesterday. Phosphorus is slightly elevated at 5.9. ASSESSMENT 1. Acute kidney injury: Presumed acute tubular necrosis. 2. History of chronic kidney disease, stage 4. 3. Underlying nephrosclerosis. 4. Status post abdominoperitoneal resection. PLAN: From a renal standpoint, hemodialysis again today. Plan a 3-hour run, 2 potassium bath, zero fluid removal. Keep low potassium diet. Add Sevelamer with meals. Will follow along. Job#: [id number] [place]
--- NOTE | 2018-09-05 11:41 | NUR ---
protocol order for wound care teaching about colostomy bag changes now on computer
[2018-09-05] MEDS: SEVELAMER CARBONATE 800 MG TAB PO SCH ×2 (12:11→17:28)
[2018-09-05] MEDS ORDERED: SODIUM CHLORIDE 0.9% 1000ML 2,000 ML ONE (12:34)
[2018-09-05] MEDS: ONDANSETRON HCL INJ 2MG/ML 2ML 2 MG/ML VIAL IV PRN (12:53)
[2018-09-05] MEDS: HYDROMORPHONE 2MG/ML 2 MG/ML ML IV PRN (12:53)
[2018-09-05] MEDS ORDERED: MANNITOL 25% 12.5GM/50 ML VIAL IV PRN (13:00)
[2018-09-05] MEDS ORDERED: SODIUM CHLORIDE 0.9% 1000ML 2,000 ML IV PRN (13:00)
[2018-09-05] MEDS ORDERED: HEPARIN SOD (PORCINE) 1000 UNIT/ML SDV IV PRN (13:00)
[2018-09-05] MEDS ORDERED: SODIUM CHLORIDE 0.9% 250ML 500 ML IV PRN (13:00)
[2018-09-05] MEDS ORDERED: ALBUMIN 25% 12.5GM 0.25 GM/ML BTL IV PRN (13:00)
--- NOTE | 2018-09-05 13:59 | NUR ---
WOUND CARE CONSULTATION- RE: OSTOMY EDUCATION -Patient admitted for rectal ca with abdominal pain. S/P abdominoperitoneal resection. Pt is new HD patient as well. -HX: DM, CKD LABS: WBC13.58 HGB8.4 HCT24.4 NEUT%92.9 [id number] WC CONSULTED FOR OSTOMY EDUCATION: -Patient is dominant Yoruba speaking. -HD in progress during visit. Unable to assess patient at this time. -Reviewed ostomy care. Patient confident to try first application tomorrow with son at bedside so he can learn how to apply appliance on. - Ostomy bag in place, well approximated and working well. -Son to be at bedside tomorrow 09/06/17 at 1130 am. -Midline abdomen surgical dressing intact. - Verbalizes Perineal incision with [place] drain still draining and is changed daily by nursing staff. -Robreto Score 12 / Alternating Air Mattress in place. PLAN: -Will follow up with patient tomorrow at 1130 for on-hands ostomy education and head to toe assessment. Discharge Planning: Ostomy Education in Progress Needs Rehab Services Home with Home Health -vs- SNF -vs- IRF. Thank you for the consultation Addendum: 09/05/18 at 1416 by Ronak Pérez RN Amended: Links added.
--- NOTE | 2018-09-05 17:00 | Progress Note ---
DATE: September 05, 2018 CARDIOVASCULAR PROGRESS NOTE SUBJECTIVE: The patient feels well from a cardiovascular standpoint. Denies any chest pain, shortness breath or palpitations. OBJECTIVE: VITAL SIGNS: Temperature is 98.5, heart rate is 101, respirations are 19, blood pressure is 131/73, oxygen saturation is 98% on room air. GENERAL: She is a thin woman in no apparent stress. CARDIOVASCULAR: She is tachycardic. Regular rhythm. No murmurs. LUNGS: Clear to auscultation. ABDOMEN: Soft, nontender. EXTREMITIES: No edema. CARDIOVASCULAR MEDICATIONS: Reviewed. LABORATORY DATA: Reviewed. Hemoglobin 8.4. Potassium 5.3, creatinine 3.23. ECHOCARDIOGRAM: Showed preserved left ventricular systolic function. IMPRESSION: 1. End-stage renal disease. 2. Chronic debilitation. 3. Malnutrition. 4. Hypertension. PLAN: Patient's echocardiogram showed preserved left ventricular systolic function and no significant valvular abnormalities. Continue hemodialysis with volume removal. Will start low-dose metoprolol for better rate control. Otherwise, continue to monitor closely on telemetry. Job#: [id number] [place]
[2018-09-05] MEDS: PANTOPRAZOLE 40 MG 10ML VIAL IV SCH (17:11)
[2018-09-05] MEDS: METOPROLOL TARTRATE 25 MG TAB PO SCH ×2 (20:30→22:30)
--- NOTE | 2018-09-05 23:04 | NUR ---
CHANGED DRESSING TO RECTUM. PT TOLERATED WELL
[2018-09-06] VITALS (7 sets, daily range): BP systolic 97–123; BP diastolic 52–72
[2018-09-06] MEDS: INSULIN REGULAR, HUMAN 100 UNIT/1 ML 3ML VIAL SQ SCH
--- NOTE | 2018-09-06 05:35 | NUR ---
CHANGED DRESSING TO RECTUM AT THIS TIME.
[2018-09-06 06:36] LABS: ANION GAP 11.1 mmol/L (8-16); CREATININE, SERUM 2.15 mg/dL (0.57-1.11); PHOSPHORUS 3.8 MG/DL (2.3-4.7); POTASSIUM 4.1 mmol/L (3.5-5.1)
[2018-09-06] MEDS ORDERED: INSULIN REGULAR, HUMAN 100 UNIT/1 ML 3ML VIAL SQ SCH (07:30)
[2018-09-06] MEDS: SEVELAMER CARBONATE 800 MG TAB PO SCH ×3 (09:26→16:42)
[2018-09-06] MEDS: METOPROLOL TARTRATE 25 MG TAB PO SCH ×2 (09:26→21:03)
--- NOTE | 2018-09-06 09:28 | Progress Note ---
DATE: September 06, 2018 Feels better. Making urine. Potassium is stabilizing. OBJECTIVE VITALS: Temperature 96.7, heart rate 102, blood pressure 121/55. CHEST: Clear. EXTREMITIES: No definite edema. ABDOMEN: With ostomy. Hemoglobin 8.4. Potassium is 4.1, creatinine 2.1, BUN 22. ASSESSMENT 1. Acute tubular necrosis on chronic kidney disease, 4. 2. Presumed nephrosclerosis. 3. Status post abdominoperineal resection. 4. Hyperkalemia has now improved, nonoliguric state. 5. Volume status reasonable. 6. Hyperphosphatemia, now started on binders and improved. PLAN: Continue Sevelamer and chemistries. Keep the low potassium intake. Hold dialysis today. Will follow along. Job#: [id number] [place]
--- NOTE | 2018-09-06 10:24 | NUR ---
CM SPOKE TO BEDSIDE, HANNAH MCKINNEY REGARDING PATIENT PLAN OF CARE. PATIENT NOT TOLERATING FULL LIQUIDS. PATIENT REQUESTING CLEAR, BUT AFTER DISCUSSION WITH DR. Solomon HERMAN PATIENT IS GOING TO TRY TO CONSUME REGULAR DIET. MOLINA DISCUSSED PT EVAL FOR PLACEMENT RECOMMENDATIONS. FAYE STATES SHE WILL CALL DR. Solomon HERMAN FOR ORDERS TO HAVE PHYSICAL THERAPY EVALUATE PATIENT. PER FAYE, DR. HERMAN WILL BE TEACHING FAMILY WOUND CARE INSTRUCTIONS TO BE SURE PATIENT AND PATIENT FAMILY UNDERSTAND. MD TO TEACH PATIENT AND PATIENT FAMILY LATER THIS EVENING AFTER 5 PM. CM TO FOLLOW UP FOR DISCHARGE PLAN.
--- NOTE | 2018-09-06 10:40 | NUR ---
LISA DC AT THIS TIME . PT DUE TO VOID
--- NOTE | 2018-09-06 11:10 | NUR ---
DRESSING CHANGE TO THE LEFT PORT CHANGED AT THIS TIME
--- NOTE | 2018-09-06 12:05 | NUR ---
WC CONSULT CANCELLED - WILL RESUME IF NEEDED /CONSULTED BACK. - NANCY BLACK TO PROVIDE WOUND AND OSTOMY EDUCATION. Addendum: 09/06/18 at 1208 by Ronak éPrez RN Amended: Links added.
--- NOTE | 2018-09-06 14:16 | NUR ---
Nutrition Intervention Note RD Recommendation(s) for Physician: - Continue renal diet as ordered - Encourage po intake as tolerated The patient meets criteria for MODERATE protein-calorie malnutrition. Plan of Care: RD following, monitoring for tolerance and adequacy Nutrition reason for involvement: Follow up RD Assessment 09/06 Chart reviewed. Pt was eating lunch during time of visit. TPN was discontinued 2 days ago. Pt reports improved appetite with no GI complains. Colostomy bag presents. HD is on hold for now. K is WNL . Will continue to monitor and follow. 09/03: Follow up. Pt sleeping at time of visit, TPN weaned to 25 ml/hr with plan to discontinue after current order. NGT discontinued over weekend. Pt on full liquid diet currently with plan to advance to GI Soft per discussion during am rounds. Pt received ostomy care training per am rounds. Pt tolerating 50-100% of CL and full liquid diet per chart. Pt with acute tubular necrosis on CKD 4 per MD notes, no plan for HD intervention at this time. Chart reviewed. Will monitor and continue to follow. 08/31 Chart reviewed. Pt is s/p abdominoperineal resection on 08/29. NGT to suction with 300cc dark green secretion. Colostomy bag presents. Renal consulted for worsening renal fx. Visited pt in the room. Pt was sitting on bedside with no acute distress. No GI complains during my visit. Explained the purpose of TPN to family. Per son, pt has lost significant amount of weight for the past 2 years. Pt weighed about 160lbs 2 years ago. Last weight check in June 2018, pt weighted about 95lbs. Weight on 08/30 was 109lb. Pt has regained a couple lbs since June. Pt has been following a renal diet for the last year. 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 Pt has some physical signs of muscle and fat loss (see below). TPN was started on @50mL/hr (50% dextrose, 10% protein). No RD consult ordered. BG has been running high at around ~280. Calculated GIR was >5mg/kg/min. No Phos and Mg ordered (Notified RN). Pt is also getting 5% dextrose from IV. Phos and Mg result needed to determine if pt is at risk for refeeding syndrome. RD rec to decrease dextrose to 150g/d until BG is stable. Will continue to monitor and follow. (08/30) Chart reviewed. Labs and meds reviewed. 63 yo F, who is admitted for rectal cancer mass removal. POD 1. Visited pt in the room. Pt was sleeping; no family presents on bedside. NGT to suction. Unable to conduct NFPA due to pts sleeping position. Pt was discussed during rounds. 2 units of blood were transfused. Colostomy bag presents. Will continue to monitor and follow. Principal Problems/Diagnoses: 1. Rectal cancer, status post surgery and permanent colostomy 2. Advanced kidney failure, most likely chronic kidney disease stage 4, possibly 5 PMH: CKD IV, DM, HTN GI: LBM 09/06- liquid brown stool + colostomy Skin: no wound pressure Labs: 09/06: Creatinine 2.15 H, Ca 8.0 L 09/03: Na 134, K 5.1, BUN 87, Cr 4.07, Mg 2.7, Phos 4.7, POC Gluc 107-132 (08/31) BUN 59 H, Creatinine 4.35 H, Glucose 280 H, Ca 7.5 L Meds: renvela Ht: 62in Wt: 109lb BMI: 19.9kg/m2 IBW: 110lb Malnutrition Evaluation (08/31/18) The patient meets criteria for MODERATE protein-calorie malnutrition. Energy intake: <75% of estimated energy requirements for >1 month Weight loss: Lost some weight but pt has been working in gaining more weight. BMI is at 19.9kg/m2 but stable. Fat loss: Moderate some protrusion of clavicle, loss of fat over triceps Muscle loss: Moderate slight depression of temporal Supporting Evidence: Fluid accumulation: unable to evaluate Functional Status: no changes pt is independent and able to do ADL by herself. Nutrition Prescription (Diet Order): renal diet Estimated Nutritional Needs: Calories: 1250 1750kcal (25-35kcal/kg/d) Weight used : Actual BW Protein: 60-75g (1.2-1.5g/kg/d) Weight used: Actual BW Diet Adequacy: meeting calorie needs, meeting protein needs Diet Education Needs Assessment: Diet education not indicated. Nutrition Care Level: low Nutrition Diagnosis: None at this time. Goal: Patient will meet 75-100% of estimated needs by follow up Progress: Progressing Interventions: Texture-modified diet Monitoring/Evaluation: Total energy intake, Total protein intake, Modified diet, Weight change Signed: Fabiana Jain MS, SATHYA LD
--- NOTE | 2018-09-06 15:28 | NUR ---
pt voided into toilet at this time after hough removal. pt states voiding a good amount placed toilet hat to get an accurate amount on next void.
[2018-09-06] MEDS: PANTOPRAZOLE 40 MG 10ML VIAL IV SCH (16:42)
--- NOTE | 2018-09-06 18:05 | NUR ---
MD HERMAN HAS TAUGHT PT HAS TO CHANGE COLOSTOMY. FAMILY PRESENT (SON), STATES TOMORROW NURSE IS TO HAVE SON AND PT DO THIS AT BEDSIDE WHILE MONITORING TO ASSESS PROPER PLACEMENT AND CHANGE OF COLOSTOMY BAG. WILL LET UPCOMING SHIFT KNOW ORDERED TO DC LEFT PORT ACCESS AND CHANGE PROTONIX IV TO PO WELL
--- NOTE | 2018-09-06 18:20 | NUR ---
REMOVED LEFT PORT ACCESS. STERILE GAUZE AND TEGADERM PLACED OVER SITE
[2018-09-07] VITALS (7 sets, daily range): BP systolic 106–127; BP diastolic 55–62
[2018-09-07 06:04] LABS: ANION GAP 9.4 mmol/L (8-16); CALCIUM 8.1 mg/dL (8.4-10.2); CREATININE, SERUM 3.16 mg/dL (0.57-1.11); PHOSPHORUS 3.3 MG/DL (2.3-4.7); POTASSIUM 4.4 mmol/L (3.5-5.1)
--- NOTE | 2018-09-07 06:10 | NUR ---
DRESSING TO RECTUM CHANGED 3X ON NIGHTSHIFT.
[2018-09-07] MEDS: SEVELAMER CARBONATE 800 MG TAB PO SCH ×3 (08:50→18:00)
[2018-09-07] MEDS: METOPROLOL TARTRATE 25 MG TAB PO SCH ×2 (09:00→21:30)
[2018-09-07] MEDS: PANTOPRAZOLE SOD 40 MG TABEC PO SCH (10:10)
--- NOTE | 2018-09-07 10:55 | NUR ---
assessment complete no distress noted, updated on poc voiced understanding, denies pain at this time, colostomy bag noted to LLQ, r hand 20g no ss of infiltration noted, l chest port noted, dsg to rectum with pen nikkie drain noted, no other co voiced call light in reach will continue to monitor
--- NOTE | 2018-09-07 12:50 | Consultation ---
DATE OF CONSULTATION: August 29, 2018 CONSULTATION TO: Dr. Bashir Hartman Jessica Garcia is a 63-year-old female who is very well known to me with cancer of the rectum. The patient had systemic chemotherapy. Had continuous infusion of 5FU and radiation. The patient had completed this for approximately 4 weeks and subsequently had APR and a colostomy. Subsequently referred to me for further evaluation. SOCIAL HISTORY: Noncontributory. FAMILY HISTORY: Noncontributory. ALLERGIES: REPORTED CEFAZOLIN, IBUPROFEN, HYDROCODONE AND IODINE. MEDICATIONS AT THIS TIME: Sodium chloride, hydromorphone, ondansetron and Protonix. REVIEW OF SYSTEMS HEENT: Normal. CARDIAC: Normal. RESPIRATORY: Normal. GI: Rectal cancer, status post systemic chemotherapy and radiation and now APR. : Chronic renal failure. MUSCULOSKELETAL: Normal. SKIN AND BREASTS: Normal. NEUROENDOCRINE: History of diabetes. PHYSICAL EXAMINATION GENERAL: Moderately built female. Anemic. No palpable adenopathy. HEART: Within normal limits. LUNGS: Clear. ABDOMEN: Obese. The patient does have bandages. I could not see the colostomy. RECTAL AND VAGINAL: Examination deferred. CENTRAL NERVOUS SYSTEM: Essentially normal. EXTREMITIES: Essentially normal. LABS: Hemoglobin of 7.8, hematocrit 24.1 with normal indices. White count of 5600 and platelets 272,000. BUN 51, creatinine 4.6. Sodium 136, potassium 3.6, chloride 108, CO2 13. IMPRESSION 1. Anemia of chronic disease. 2. Chronic renal failure. 3. Early iron deficiency with a high red cell distribution width of 18.6. 4. Hypoalbuminemia. 5. Hypocalcemia. 6. Status post resection of rectal cancer. PLAN, COMMENTS AND SUGGESTIONS: I will add INFeD and Procrit. The patient has been made ELSA. I will confine myself to hematology. Job#: [id number] cc:MD ALYCIA CANAS MD
--- NOTE | 2018-09-07 19:42 | NUR ---
Received report from AM nurse. Walking rounds completed.
--- NOTE | 2018-09-07 20:05 | NUR ---
Patient resting quitly. Respond to touch. Denies pain at this time. Asst to bathroom with use of walker.Patient returned to bed and resting quitly at this time.
--- NOTE | 2018-09-07 20:24 | NUR ---
Tele SR 93. Colostomy to left side abdomin intact.
[2018-09-08] VITALS (7 sets, daily range): BP systolic 96–117; BP diastolic 51–59
--- NOTE | 2018-09-08 06:00 | NUR ---
Patient up and down to bathroom with asst. Denies need for pain meds.
[2018-09-08 06:25] LABS: ALBUMIN 1.9 g/dL (3.5-5.0); ALBUMIN/GLOBULIN RATIO 0.7 (0.8-2.0); ANION GAP 10.3 mmol/L (8-16); CREATININE, SERUM 3.56 mg/dL (0.57-1.11); POTASSIUM 4.3 mmol/L (3.5-5.1)
[2018-09-08] MEDS: SEVELAMER CARBONATE 800 MG TAB PO SCH ×3 (09:00→17:57)
[2018-09-08] MEDS: METOPROLOL TARTRATE 25 MG TAB PO SCH ×2 (09:00→21:00)
[2018-09-08] MEDS: PANTOPRAZOLE SOD 40 MG TABEC PO SCH (10:15)
--- NOTE | 2018-09-08 10:15 | NUR ---
ASSESSMENT COMPLETE NO DISTRESS NOTED, UPDATED ON POC VOICED UNDERSTANDING, DENIES PAIN AT THIS TIME, CARLOS NOTED TO ABDOMEN C/D/I, SUTURES NOTED TO RECTUM WITH PEN IDALMIS DRAIN NOTED, NO OTHER CO VOICED CALL LIGHT IN REACH WILL CONTINUE TO MONITOR
--- NOTE | 2018-09-08 12:55 | Progress Note ---
DATE: September 08, 2018 CARDIOLOGY PROGRESS NOTE SUBJECTIVE: Patient complains of pain in her buttocks; otherwise, no any other complaint. She does report being very fatigued. Denies any chest pain or shortness of breath. OBJECTIVE VITAL SIGNS: Temperature 98.4, pulse 85, respiratory rate 18, blood pressure 117/55, oxygen saturation 100% on room air. GENERAL: Alert and oriented x3, resting comfortably in bed, does not appear to be in any acute distress. LUNGS: Clear to auscultation throughout. No wheezing. No rhonchi or crackles. CARDIOVASCULAR: Regular rate and rhythm. ABDOMEN: Soft and nontender. EXTREMITIES: Lower extremity, no edema. CARDIOVASCULAR MEDICATIONS: Metoprolol 12.5 mg p.o. q.12 hours. LABORATORY DATA: Sodium 133, potassium 4.3, BUN 28, creatinine 3.56, glucose 98, calcium 8.0, alkaline phosphatase 236. TELEMETRY: Sinus rhythm. IMPRESSION 1. End-stage renal disease. 2. Chronic debility. 3. Malnutrition. 4. Hypertension. PLAN: Continue with the above listed cardiac medication. The patient's echocardiogram showed preserved left ventricular systolic function with no significant valvular abnormalities. Continue hemodialysis with volume management. Monitor heart rate on beta ginny. We will continue to monitor this patient on telemetry. Dictated by: Consuelo Roach NP Job#: [id number] JUVENTINO
--- NOTE | 2018-09-08 18:00 | NUR ---
paged Dr. Dimas adamson re low grade temp of 100.7, no new orders at this time, covers removed, lowered temp in room will continue to monitor.
--- NOTE | 2018-09-08 19:43 | NUR ---
Received change of shift report from Am nurse. Walking rounds completed.
[2018-09-09] VITALS: BP 103/53
[2018-09-09 04:00] VITALS: BP 108/56
--- NOTE | 2018-09-09 05:00 | NUR ---
Patient resting quitly with no c/o pain or discomfort. Continue monitor.
[2018-09-09 10:09] VITALS: BP 105/51
[2018-09-09] MEDS: PANTOPRAZOLE SOD 40 MG TABEC PO SCH (10:09)
[2018-09-09] MEDS: METOPROLOL TARTRATE 25 MG TAB PO SCH ×2 (10:09→21:00)
[2018-09-09] MEDS: SEVELAMER CARBONATE 800 MG TAB PO SCH ×3 (10:09→18:00)
--- NOTE | 2018-09-09 10:09 | NUR ---
ASSESSMENT COMPLETE NO DISTRESS NOTED, UPDATED ON POC VOICED UNDERSTANDING, DENIES PAIN AT THIS TIME, R HAND 20G NO SS OF INFILTRATION NOTED, PEN IDALMIS DRAIN TO BUTTOCKS, COLOSTOMY TO LUQ WITH BROWN STOOL NOTED, NO OTHER CO VOICED CALL LIGHT IN REACH WILL CONTINUE TO MONITOR
--- NOTE | 2018-09-09 11:18 | Progress Note ---
DATE: September 09, 2018 CARDIOLOGY PROGRESS NOTE SUBJECTIVE: Patient endorses some rectal pain and fatigue. Otherwise, denies any chest pain, shortness of breath, or palpitations. OBJECTIVE VITAL SIGNS: Temperature 98.3, pulse 93, respiratory rate 16, blood pressure 108/56, oxygen saturation 98% on room air. GENERAL: Alert and oriented x3, resting comfortably in bed, does not appear to be in any acute distress. LUNGS: Clear to auscultation throughout. No wheezing. No rhonchi or crackles. CARDIOVASCULAR: Regular rate and rhythm. Systolic ejection murmur noted 10/24. ABDOMEN: Flat, soft, nontender. LOWER EXTREMITIES: No edema. CARDIOVASCULAR MEDICATIONS: Metoprolol 12.5 mg p.o. every 12 hours. LABS: No new labs today. TELEMETRY: Sinus rhythm. IMPRESSION 1. End-stage renal disease. 2. Chronic debility. 3. Malnutrition. 4. Hypertension. 5. Status post resection of rectal cancer. RECOMMENDATIONS: Continue with the above list of cardiac medication. Continue to monitor heart rate on tele. Continue beta ginny. Patient's last echocardiogram showed preserved left ventricular systolic function with no significant valvular abnormalities. Dictated by: Consuelo Roach NP Job#: [id number]
[2018-09-09 12:26] VITALS: BP 99/51
[2018-09-09 16:31] VITALS: BP 95/54
--- NOTE | 2018-09-09 19:26 | NUR ---
Received change of shift report from Am nurse. Walking rounds completed.
[2018-09-09 20:00] VITALS: BP 96/55
--- NOTE | 2018-09-09 20:05 | NUR ---
Patient in bed with no c/o at this time. AAOx3. Denies pain at this time. IV intact to right hand.
[2018-09-10] VITALS (10 sets, daily range): BP systolic 90–125; BP diastolic 51–63
--- NOTE | 2018-09-10 05:07 | NUR ---
Patient resting quitly at this time. Continue monitor.
[2018-09-10] MEDS: SEVELAMER CARBONATE 800 MG TAB PO SCH ×3 (08:00→16:45)
[2018-09-10] MEDS: PANTOPRAZOLE SOD 40 MG TABEC PO SCH (08:44)
[2018-09-10] MEDS: METOPROLOL TARTRATE 25 MG TAB PO SCH ×2 (08:44→20:44)
--- NOTE | 2018-09-10 09:04 | Consultation ---
DATE OF CONSULTATION: September 10, 2018 REFERRING PHYSICIANS: 1. Dr. Bashir Hartman 2. Dr. Joe Ramírez HISTORY: Patient is a 63-year-old female who recently underwent surgery for carcinoma of the rectum, who now developed renal failure. She is currently being dialyzed via a catheter, and it is anticipated may need long-term hemodialysis. PAST MEDICAL HISTORY: Significant for chronic kidney disease, hypertension, diabetes with a recent rectal cancer. She just had surgery for her cancer of the rectum, abdominoperineal resection. ALLERGIES: SHE HAS ALLERGIES TO ANCEF, HYDROCODONE, IBUPROFEN, IODINE. MEDICATIONS: Listed in the chart. FAMILY HISTORY: Noncontributory. SOCIAL HISTORY: The patient does not smoke cigarettes or drink alcohol. REVIEW OF SYSTEMS: As stated above. PHYSICAL EXAMINATION: GENERAL: The patient is awake and alert. VITAL SIGNS: Normal. HEENT: Reveals no scleral icterus. NECK: Has no masses. LUNGS: Equal breath sounds are clear bilaterally. CARDIAC: Regular rate and rhythm. ABDOMEN: Soft with a healthy-appearing colostomy. EXTREMITIES: In the left arm, the radial pulse is palpable, but somewhat diminished. Brachial pulse is palpable. Peripheral veins are marginal for a fistula. ASSESSMENT: [id number]-old female with renal failure who is anticipated will need long-term hemodialysis. PLAN: Left arm arteriovenous fistula to be done later this week. Procedure was explained to the patient. Thank you for asking me to see Jose. Job#: [id number]
[2018-09-10] MEDS ORDERED: SODIUM CHLORIDE 0.9% 250ML 250 ML ONE (12:21)
[2018-09-10] MEDS ORDERED: LIDOCAINE HCL 1% LOCAL INJ 20 ML VIAL ONE (12:22)
[2018-09-10] MEDS ORDERED: SODIUM CHLORIDE 0.9% 500ML 500 ML ONE (12:50)
[2018-09-10] MEDS ORDERED: FENTANYL CITRATE/PF 100MCG/2 ML INJ ONE (12:50)
[2018-09-10] MEDS ORDERED: MIDAZOLAM HCL 2 MG/2 ML VIAL ONE (12:50)
[2018-09-10] MEDS ORDERED: HEPARIN SOD (PORCINE) 1000 UNIT/ML 30ML ONE (13:00)
--- NOTE | 2018-09-10 13:01 | NUR ---
SPOKE WITH PATIENT WHOM SIGNED CHOICE FOR [facility]. CALLED JESSICA AT [facility] WHOM STATES HAS KETURAH Dobbs AND SAT CHAIR AT 615 PM. ASKED HER TO HOLD IT AND WILL SEND TO ADMISSIONS LINE FOR HER TO ACCESS AND GET APPROVAL.
--- NOTE | 2018-09-10 13:10 | NUR ---
PT OFF UNIT FOR RIGHT TUNNELLED CATH AT THIS TIME
--- NOTE | 2018-09-10 13:32 | NUR ---
FAXED CLINICALS TO THE ADMISSION LINE FOR [facility] [phone]. WAITING ON AUTH AND CHAIR LETTER CONFIRMATION
--- NOTE | 2018-09-10 14:40 | NUR ---
PT BACK TO FLOOR AA0X3. PT IS ON BED REST FOR 2 HOURS. PT AWARE. RIGHT IJ CHEST IS DRY AND INTACT. V/S WITHIN N/L CALLED IN FOR TRAY AT THIS TIME. WILL RECHECK V/S IN 15 MIN AT TIME PT IS IN NO S.S OF DISTRESS. WILL CONTINUE TO CARE
--- NOTE | 2018-09-10 14:47 | NUR ---
CALLED [facility] TO MAKE THEM AWARE OF PT RETURNING FROM HD TUNNELED CATH PLACEMENT .
--- NOTE | 2018-09-10 15:45 | Diagnostic Imaging Report ---
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 Villa Pre-operative diagnosis: End-stage renal disease Post-operative diagnosis: End-stage renal disease Conscious Sedation: Versed 1 mg and Fentanyl 50 mcg. The patient's heart rate and pulse oximetry were continuously monitored by the interventional radiology nurse. Blood pressure was monitored at 5 minute intervals. Total monitored sedation time: 45 minutes Additional Medications: Lidocaine 1% for local anesthesia Fluoroscopy time: 1 minute, 34 seconds Dose-area Product: 108.6 cGycm2. Frontal Air Kerma: 3.97 mGy Contrast used: None Estimated blood loss: Less than 20 cc Blood proximal administered: None Specimens: Temporary hemodialysis catheter discarded Implants: 16 Lebanese, 19 cm tip-cuff dual-lumen tunneled hemodialysis catheter DISCUSSION: Informed consent for the procedure was obtained from the patient after discussion of risks and benefits. The right neck and upper chest was prepped and draped in the standard sterile fashion after the patient was placed in the supine position on the fluoroscopic table. Preliminary sonographic evaluation confirmed patency of the right internal jugular vein, evidenced by compressibility. 1% lidocaine was administered into the skin and subcutaneous tissues of the right lower neck for local anesthesia. Then, under continuous sonographic guidance, a 21-gauge micropuncture needle was advanced into the right internal jugular vein. A permanent sonographic image was stored in the medical record. A 0.018 inch wire was advanced centrally under fluoroscopic guidance. The needle was then removed and access was secured with a micropuncture sheath. Intravascular length to the upper right atrium was determined using the microwire, which was then removed along with the inner dilator of the micropuncture sheath. A 0.035 inch Amplatz wire was then advanced through the micropuncture sheath into the inferior vena cava under fluoroscopic guidance. Attention was then turned to the right upper chest. A suitable catheter exit site was determined, approximately 3 fingerbreadths inferior to the clavicle. The skin was marked. 1% lidocaine was used to anesthetize a subcutaneous tract extending from the planned catheter exit site to the venotomy at the right lower neck. A stab incision was made on the right upper chest. Subsequently, the catheter was tunneled from the exit site of the right upper chest to the venotomy at the right lower neck. The retention cuff of the catheter was advanced well into the subcutaneous tunnel. The micropuncture sheath was then removed over the wire and the tract was serially dilated. Finally, a 16.5-Lebanese peel-away sheath was advanced over the wire under fluoroscopic guidance. The wire and inner dilator of the sheath were removed and the catheter was advanced through the peel-away sheath, which was then broken and removed. The catheter tip was positioned in the upper right atrium. Each catheter lumen showed good bidirectional flow. Each lumen was then packed with 2500 units of heparin. The catheter was secured at the exit site on the right upper chest with monofilament nylon suture. The venotomy at the right lower neck was closed with tissue adhesive. A sterile dressing was applied. Subsequently the retention sutures for the temporary dialysis catheter were cut and the catheter was removed with hemostasis achieved by manual compression. The patient tolerated the procedure well without immediate complication. Findings: Patent right internal jugular vein. Impression: Successful placement of a tunneled dual-lumen hemodialysis catheter (16-Lebanese, 19-cm tip-cuff length) by a right internal jugular approach, followed by removal of right internal jugular temporary hemodialysis catheter Signed by: Dr. Kiet Villa M.D. on 09/10/2018 3:42 PM
--- NOTE | 2018-09-10 15:45 | Diagnostic Imaging Report ---
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 The patient's heart rate and pulse oximetry were continuously monitored by the interventional radiology nurse. Blood pressure was monitored at 5 minute intervals. Total monitored sedation time: 45 minutes Additional Medications: Lidocaine 1% for local anesthesia Fluoroscopy time: 1 minute, 34 seconds Dose-area Product: 108.6 cGycm2. Frontal Air Kerma: 3.97 mGy Contrast used: None Estimated blood loss: Less than 20 cc Blood proximal administered: None Specimens: Temporary hemodialysis catheter discarded Implants: 16 Hong Konger, 19 cm tip-cuff dual-lumen tunneled hemodialysis catheter DISCUSSION: Informed consent for the procedure was obtained from the patient after discussion of risks and benefits. The right neck and upper chest was prepped and draped in the standard sterile fashion after the patient was placed in the supine position on the fluoroscopic table. Preliminary sonographic evaluation confirmed patency of the right internal jugular vein, evidenced by compressibility. 1% lidocaine was administered into the skin and subcutaneous tissues of the right lower neck for local anesthesia. Then, under continuous sonographic guidance, a 21-gauge micropuncture needle was advanced into the right internal jugular vein. A permanent sonographic image was stored in the medical record. A 0.018 inch wire was advanced centrally under fluoroscopic guidance. The needle was then removed and access was secured with a micropuncture sheath. Intravascular length to the upper right atrium was determined using the microwire, which was then removed along with the inner dilator of the micropuncture sheath. A 0.035 inch Amplatz wire was then advanced through the micropuncture sheath into the inferior vena cava under fluoroscopic guidance. Attention was then turned to the right upper chest. A suitable catheter exit site was determined, approximately 3 fingerbreadths inferior to the clavicle. The skin was marked. 1% lidocaine was used to anesthetize a subcutaneous tract extending from the planned catheter exit site to the venotomy at the right lower neck. A stab incision was made on the right upper chest. Subsequently, the catheter was tunneled from the exit site of the right upper chest to the venotomy at the right lower neck. The retention cuff of the catheter was advanced well into the subcutaneous tunnel. The micropuncture sheath was then removed over the wire and the tract was serially dilated. Finally, a 16.5-Hong Konger peel-away sheath was advanced over the wire under fluoroscopic guidance. The wire and inner dilator of the sheath were removed and the catheter was advanced through the peel-away sheath, which was then broken and removed. The catheter tip was positioned in the upper right atrium. Each catheter lumen showed good bidirectional flow. Each lumen was then packed with 2500 units of heparin. The catheter was secured at the exit site on the right upper chest with monofilament nylon suture. The venotomy at the right lower neck was closed with tissue adhesive. A sterile dressing was applied. Subsequently the retention sutures for the temporary dialysis catheter were cut and the catheter was removed with hemostasis achieved by manual compression. The patient tolerated the procedure well without immediate complication. Findings: Patent right internal jugular vein. Impression: Successful placement of a tunneled dual-lumen hemodialysis catheter (16-Hong Konger, 19-cm tip-cuff length) by a right internal jugular approach, followed by removal of right internal jugular temporary hemodialysis catheter Signed by: Dr. Kiet Villa M.D. on 09/10/2018 3:42 PM
--- NOTE | 2018-09-10 18:05 | NUR ---
CALLED [facility] AGAIN, SPOKE WITH BRIGHT, WILL FORWARD MESSAGE REGARDING PT NEEDED DIALYSIS TODAY
[2018-09-10] MEDS ORDERED: HYDROCODONE/APAP 7.5MG-325MG 1 EA TAB PO PRN (19:15)
[2018-09-10] MEDS ORDERED: HYDROMORPHONE 1MG/1ML INJ IV PRN (19:30)
[2018-09-10] MEDS: HYDROMORPHONE 2MG/ML 2 MG/ML ML IV PRN (19:35)
--- NOTE | 2018-09-10 19:45 | NUR ---
CALLED DIALYSIS TO SEE IF THEY ARE COMING TONIGHT, NURSE HERE IN HOUSE SAID SHE WOULD BE DOING IT TONIGHT, PRINTED OFF LABS FOR HER
--- NOTE | 2018-09-10 20:10 | NUR ---
INITIAL ASSESSMENT COMPLETE, PT PAIN CONTROLLED AT THIS TIME, VS STABLE, NO DISTRESS NOTED, ABD OPEN TO AIR, COLOSTOMY TO LEFT SIDE, DRESSING TO RIGHT SHOULDER INTACT WITHOUT DRAINAGE, IV INTACT, FAMILY AT BEDSIDE, TOLD TO CALL FOR NEEDS
--- NOTE | 2018-09-10 23:42 | NUR ---
PT UP TO BATHROOM, BACK TO BED, DIALYSIS NURSE HERE, DECIDED TO DO DIALYSIS IN THE AM, SPOKE TO PT ABOUT IT
[2018-09-11] VITALS (7 sets, daily range): BP systolic 93–146; BP diastolic 55–75
--- NOTE | 2018-09-11 00:20 | Progress Note ---
DATE: September 10, 2018 CARDIOLOGY PROGRESS NOTE SUBJECTIVE: No major events overnight. OBJECTIVE: VITAL SIGNS: Temperature afebrile, pulse 93, respiratory rate 16, blood pressure 108/56, satting 98% on room air. GENERAL: Alert and oriented x3, in no acute distress. CARDIOVASCULAR: Regular rate and rhythm. Systolic ejection murmur 2/6 right upper sternal border. LUNGS: Clear to auscultation bilaterally. ABDOMEN: Soft, nontender, nondistended. NEURO AND PSYCH: Alert and oriented to person, place, and time. Normal affect. CARDIOVASCULAR MEDICATIONS: Reviewed. LABORATORY DATA: Reviewed. TELEMETRY DATA: Reviewed. ASSESSMENT AND PLAN: 1. End-stage renal disease. 2. Chronic debility. 3. Malnutrition. 4. Hypertension. 5. Status post resection of rectal cancer. RECOMMENDATIONS: Continue current cardiovascular medications. Continue to monitor on telemetry. Thank you for this consult. Will continue to follow. Job#: [id number]
[2018-09-11] MEDS: HYDROMORPHONE 2MG/ML 2 MG/ML ML IV PRN ×2 (02:42→07:58)
--- NOTE | 2018-09-11 05:45 | NUR ---
PT UP TO BATHROOM AND THEN BACK TO BED, NO DISTRESS NOTED, VS STABLE
[2018-09-11] MEDS: METOPROLOL TARTRATE 25 MG TAB PO SCH ×2 (07:57→21:00)
[2018-09-11] MEDS: SEVELAMER CARBONATE 800 MG TAB PO SCH ×3 (07:57→18:44)
[2018-09-11] MEDS: PANTOPRAZOLE SOD 40 MG TABEC PO SCH (07:58)
[2018-09-11 08:02] LABS: BASOPHILS % 0.3 % (0.0-1.0); EOSINOPHILS # (AUTO) 0.1 (0.0-0.4); EOSINOPHILS % 0.9 % (0.0-6.0); HEMATOCRIT 26.7 % (34.2-44.1); HEMOGLOBIN 8.3 g/dL (12.0-16.0); LYMPHOCYTES # (AUTO) 0.6 (1.0-3.2); LYMPHOCYTES % 8.2 % (18.0-39.1); MEAN CORPUSCULAR HEMOGLOBIN 28.1 pg (28-32); MEAN CORPUSCULAR HGB CONC 31.1 g/dL (31-35); MEAN CORPUSCULAR VOLUME 90.5 fL (81-99); MONOCYTES # (AUTO) 0.8 (0.2-0.8); MONOCYTES % 10.6 % (4.4-11.3); NEUTROPHILS # (AUTO) 6.2 (2.1-6.9); NEUTROPHILS % 79.4 % (38.7-80.0); PLATELET COUNT 183 x10e3/uL (140-360); RED BLOOD COUNT 2.95 x10e6/uL (3.6-5.1); RED CELL DISTRIBUTION WIDTH 17.1 % (11.7-14.4)
--- NOTE | 2018-09-11 08:03 | NUR ---
SPOKE WITH BAIRON TAMEZ AT [facility] WHO STATES SHE WILL SPEAK WITH LATA ABOUT DIALYSIS TODAY
[2018-09-11 08:27] LABS: ANION GAP 13.6 mmol/L (8-16); CALCIUM 7.9 mg/dL (8.4-10.2); CREATININE, SERUM 3.66 mg/dL (0.57-1.11); POTASSIUM 3.6 mmol/L (3.5-5.1)
--- NOTE | 2018-09-11 10:19 | Diagnostic Imaging Report ---
EXAMINATION: CHEST XRAY LINE PLACEMENT INDICATION: Evaluate position of tunneled catheter, pain post procedurally COMPARISON: Right IJ hemodialysis catheter placement 09/10/2018. FINDINGS: TUBES and LINES: Right IJ tunneled hemodialysis catheter terminates at the expected location of the cavoatrial junction. No evidence of kinking. Left sided port terminates at the expected location of the upper SVC. LUNGS: Lungs are well inflated. Lungs are clear. There is no evidence of pneumonia or pulmonary edema. PLEURA: No pleural effusion or pneumothorax. HEART AND MEDIASTINUM: The cardiomediastinal silhouette is unremarkable. BONES AND SOFT TISSUES: No acute osseous lesion. Soft tissues are unremarkable. UPPER ABDOMEN: No free air under the diaphragm. IMPRESSION: Right IJ tunneled hemodialysis catheter terminates at the expected location of the cavoatrial junction. No evidence of pneumothorax. Signed by: Dr. Rochelle Yang MD on 09/11/2018 10:15 AM
[2018-09-11] MEDS ORDERED: EPOETIN ALFA 10000 UNIT/ML VIAL SC ONE (12:15)
[2018-09-11] MEDS: IRON SUCROSE 100 MG in SODIUM CHLORIDE 0.9% 100 ML 100 ML IV SCH (14:54)
--- NOTE | 2018-09-11 14:54 | NUR ---
dialysis nurse is here and will run iron with treatment
[2018-09-11] MEDS: SODIUM BICARBONATE 650 MG TAB PO SCH (18:45)
[2018-09-12] VITALS (8 sets, daily range): BP systolic 90–110; BP diastolic 50–56
[2018-09-12] MEDS: ACETAMINOPHEN/CODEINE 300MG - 30MG TAB PO PRN ×2 (00:46→16:53)
[2018-09-12] MEDS: SEVELAMER CARBONATE 800 MG TAB PO SCH ×3 (08:00→16:53)
[2018-09-12 08:01] LABS: ANION GAP 12.5 mmol/L (8-16); CALCIUM 8.3 mg/dL (8.4-10.2); CREATININE, SERUM 2.16 mg/dL (0.57-1.11); POTASSIUM 3.5 mmol/L (3.5-5.1)
[2018-09-12] MEDS: PANTOPRAZOLE SOD 40 MG TABEC PO SCH (09:00)
[2018-09-12] MEDS: METOPROLOL TARTRATE 25 MG TAB PO SCH ×2 (09:00→21:00)
[2018-09-12] MEDS: SODIUM BICARBONATE 650 MG TAB PO SCH ×2 (09:00→16:53)
--- NOTE | 2018-09-12 09:03 | NUR ---
DOWN TO OR FOR PROCEDURE PT LEFT IN STABLE CONDITION
[2018-09-12] MEDS ORDERED: SODIUM CHLORIDE 0.9% 500ML 500 ML ONE (09:16)
[2018-09-12] MEDS ORDERED: HEPARIN SOD (PORCINE) 1000 UNIT/ML 30ML ONE (10:26)
[2018-09-12] MEDS ORDERED: SODIUM CHLORIDE 0.9% 100 ML ONE (10:27)
[2018-09-12] MEDS ORDERED: VANCOMYCIN HCL 500 MG ONE (10:55)
[2018-09-12] MEDS ORDERED: FENTANYL CITRATE/PF 100MCG/2 ML INJ ONE ×2 (11:35→12:54)
--- NOTE | 2018-09-12 12:03 | Operative Report ---
DATE OF PROCEDURE: September 12, 2018 PREOPERATIVE DIAGNOSIS: End-stage renal disease. POSTOPERATIVE DIAGNOSIS: End-stage renal disease. PROCEDURE: Creation of left arm primary brachiobasilic arteriovenous fistula. RESEARCH STATISTICIAN: None. ANESTHESIA: General. INDICATIONS AND FINDINGS: Patient is a 63-year-old female who had recent surgery for carcinoma of the rectum, who developed renal failure requiring dialysis and was declared end-stage. In surgery, patient was found to have adequate pulse in the brachial artery and adequate sized basilic vein in the antecubital area for the fistula. Distally, there was no pulse in the radial artery, although there was a large enough cephalic vein. TECHNIQUE: After adequate general anesthesia, patient in supine position, the left arm was prepped and draped in sterile fashion with ChloraPrep solution. Transverse incision made in antecubital area and carried down through subcutaneous tissue. There was an adequate sized basilic vein for fistula and this was dissected free proximally and distally. Side branches ligated with Hemoclips and controlled with vessel loop. Just lateral to this, incision carried deeper and the brachial artery dissected free and controlled with Vesseloop. With the vein mobilized as much as possible, patient was given 5,000 units of intravenous heparin. Venotomy was made. Number 3 Mary catheter was passed through the vein and passed easily without resistance. The brachial artery was clamped proximally and distally. Arteriotomy was made. A venotomy was made. Anastomosis made between the site of the vein and the site of the artery with a running suture of 7-0 Prolene. Once flow was allowed through the fistula, there was a palpable thrill over the fistula, palpable pulse in the brachial artery distal to the fistula. Hemostasis was seen to be adequate. The wound was then closed with 3-0 Vicryl subcutaneous tissue and elida for the skin and a sterile dressing was applied. The patient tolerated the procedure well. Estimated blood loss was 10 mL. There were no complications. All counts were correct. Patient was taken to the recovery room in satisfactory condition. Job#: [id number] TA cc:ALYCIA CORONA MD
[2018-09-12] MEDS: IRON SUCROSE 100 MG in SODIUM CHLORIDE 0.9% 100 ML 100 ML IV SCH (12:40)
--- NOTE | 2018-09-12 12:40 | NUR ---
BACK TO RM AAXO3, NO DISTRESS NOTED, DSG TO LUE, BRUIT AUSCULTATED, R HAND 20G NO SS OF INFILTRATION NOTED, NO OTHER CO VOICED CALL LIGHT IN REACH WILL CONTINUE OT MONITOR
[2018-09-12] MEDS ORDERED: MIDAZOLAM HCL 2 MG/2 ML VIAL ONE (12:54)
--- NOTE | 2018-09-12 13:55 | NUR ---
GOT LETTER FOR CHAIR FOR DIALYSIS T, MONDAY AND SATURDAYS AT 6:15PM. GAVE 3 COPIES TO PATIENT AND FILED ONE IN CHART
--- NOTE | 2018-09-12 14:13 | NUR ---
PAGED DR CORONA RE: DC ORDERS, AWAITING CALL BACK
[2018-09-12] MEDS ORDERED: PROPOFOL IV EMULSION 10 MG/ML 20 ML VIAL ONE (17:54)
[2018-09-12] MEDS ORDERED: SEVOFLURANE INHAL SOLN 250 ML PEN BTL ONE (17:54)
[2018-09-12] MEDS ORDERED: LIDOCAINE HCL 2% LOCAL INJ 5 ML SDV VIAL INJ ONE (17:54)
[2018-09-12] MEDS ORDERED: EPHEDRINE SULFATE INJ 50 MG/10 ML SYR ONE (17:54)
--- NOTE | 2018-09-12 19:25 | NUR ---
Received patient awake on bed, family member at the bedside, patient is not in distress, no complaints of pain at this time. Call light within easy recah, advised to call for assistance, will continue to monitor
[2018-09-13] VITALS: BP 94/52
[2018-09-13] MEDS: ACETAMINOPHEN/CODEINE 300MG - 30MG TAB PO PRN (01:04)
[2018-09-13 04:00] VITALS: BP 92/46
[2018-09-13] MEDS ORDERED: LEVAQUIN500 MG PO (07:13)
[2018-09-13] MEDS ORDERED: TYLENOL WITH C1 EACH PO (07:14)
[2018-09-13 07:50] VITALS: BP 91/52
[2018-09-13] MEDS: METOPROLOL TARTRATE 25 MG TAB PO SCH (09:00)
[2018-09-13] MEDS: SODIUM BICARBONATE 650 MG TAB PO SCH (09:50)
[2018-09-13] MEDS: PANTOPRAZOLE SOD 40 MG TABEC PO SCH (09:50)
[2018-09-13] MEDS: SEVELAMER CARBONATE 800 MG TAB PO SCH (09:50)
--- NOTE | 2018-09-13 09:50 | NUR ---
assessment complete no distress noted,updated on poc voiced understanding, denies pain at this time, r hand 20g no ss of infiltration noted, r tunneled hd cath, l fistula with dsg noted, bruit auscultated, thrill felt, colostomy to llq, no other co vocied call light in reach will continue to monitor
[2018-09-13 10:05] VITALS: BP 91/52
--- NOTE | 2018-09-13 10:08 | NUR ---
spoke with pt son susu, informed ready to discharge his mother, states " I will be here there in an hr."
[2018-09-13 12:06] VITALS: BP 101/59
--- NOTE | 2018-09-13 12:20 | NUR ---
son here to take patient home, dc instructions,scripts, fu appt given, voiced understanding,pt given some bags and wafers for colostomy as per instructed by dr Hartman. iv dc'd covered with 2x2 and tape, pt wheeled out to family car left in stable condition
--- NOTE | 2018-10-31 16:41 | Operative Report ---
DATE OF PROCEDURE: 08/29/2018 SURGEON: Bashir Hartman MD PREOPERATIVE DIAGNOSIS: Rectal cancer. POSTOPERATIVE DIAGNOSIS: Rectal cancer. OPERATION PERFORMED: Abdominoperineal resection. ASSOCIATE BRAND MANAGER: Dr. Josiah Hartman. ANESTHESIA: General. COMPLICATIONS: None. ESTIMATED BLOOD LOSS: 200 mL. DESCRIPTION OF PROCEDURE: With the patient lying in bed in the supine position with the legs up in stirrups, the abdomen and perineum were prepped with Betadine solution and draped in the usual manner. A lower midline incision was made, was carried down through the subcutaneous tissue down to the midline fascia, the midline fascia was opened, the peritoneum was opened and the abdomen was entered. Upon entering the abdominal cavity, exploration did not reveal the presence of any metastatic disease to the liver or to the abdominal cavity that could be palpated. We decided to go ahead and proceed with the abdominoperineal resection. The sigmoid colon was then from the lateral ___wall at the white line. The left ureter was identified and preserved and the sigmoid colon was mobilized medially and was then divided with an application of a VANESSA- 75 stapler. The mesentery of the colon was then slowly and carefully divided using the EnSeal device. The retrorectal space was then entered and the colon was mobilized posteriorly. Both lateral stalks were then divided with the EnSeal device and then the colon was then anteriorly from its attachments and we then slowly and carefully proceeded to mobilize the colon all the way down to the perineum in a circumferential manner. All bleeding points were either electrocoagulated or divided with the EnSeal device. At this point, we went from below and an incision was then made in the perineum excising the rectum in a vertical fashion. Incision was deepened through the subcutaneous tissue. The muscle stocks were then divided with the EnSeal device and the retrorectal space was entered posteriorly and connected with the abdominal incision. The rectum was then mobilized circumferentially and removed without any difficulty. The specimen was sent for pathological examination. The whole wound was then copiously irrigated and perfect hemostasis was ascertained. After this was done, the perineal wound was then closed approximating the muscle and subcutaneous tissue with interrupted sutures of 0 Vicryl. A half-inch [place] drain was then left in the wound and brought out through a stab wound incision in the buttocks and the skin of the perineum was closed with interrupted vertical mattress sutures of 2-0 silk. Gloves and instruments were then changed and then we went ahead and proceeded to ascertain that there was no bleeding in the abdominal cavity. The perineum was closed with approximation of the peritoneum with 0 Vicryl and once this was completed, a 10 flat Maximilian-Garcia was placed in the pelvis and brought out through a separate stab wound incision. A nipple of skin was then removed from the left mid abdomen and a cruciate incision was made in the rectus fascia and a tunnel was created. The colon came out through the tunnel into the skin without any difficulty. The abdomen was then closed in layers. The peritoneum was closed with a running suture of #1 Vicryl, the midline fascia was closed with a running suture of #1 PDS and the skin was closed with clips. The colostomy was then matured using interrupted sutures of 3-0 Vicryl. Dressings were applied. The sponge, lap, and needle count was correct. The patient tolerated the procedure well and returned to the recovery room in stable condition. MD MAMADOU Rivas/LEO /[id number] JEREMIAS
--- NOTE | 2018-11-01 13:00 | Discharge Summary ---
ADMITTING DIAGNOSIS: Rectal cancer. DISCHARGE DIAGNOSIS: Rectal cancer. OPERATION PERFORMED: Abdominoperineal resection and creation of arteriovenous fistula. COMPLICATIONS: None. HOSPITAL COURSE: This 63-year-old female was admitted to the hospital with a history having a rectal cancer for which she has undergone a previous chemo and radiation and was thus admitted for surgical resection and an abdominoperineal resection with a permanent colostomy. The patient has a history of hypertension and chronic renal failure. The patient underwent a full bowel prep and was taken to surgery on the day of admission, where she underwent an uneventful abdominoperineal resection and colostomy. Postoperatively, the patient did well as far as the surgery was concerned. Her bowels started functioning without any difficulty and her colostomy started putting out and she was started on a clear liquid diet, which was advanced all the way up to a regular diet; however, her chronic renal failure reached a point where it was decided that the patient would need to have dialysis. Consultations were obtained with the Renal service, the Oncology service, and the Vascular Surgery service. The patient went to surgery and underwent placement of an AV graft for dialysis and she was dialyzed and became stable and finally on 09/13/2018, with the patient being afebrile, vital signs being stable, her wounds healing nicely, eating a regular diet and tolerating her dialysis well, she was discharged to go home. She had placement for her dialysis treatments already arranged. MD MAMADOU Rivas/LEO /[id number]
== END 2018-09-13 12:16 | disposition home or self-care (01) | DRG 329 ==
LOC: OR 05:41 → PACU V 16:11 → ICU 16:28 → MED/SURG 09-02 12:16
PROVIDERS: ADMIT Surgery; ATTEND Surgery
PROC: 0DTN0ZZ Resection of Sigmoid Colon, Open Approach (ICD-10-PCS; 2018-08-29)
PROC: 0DTQ0ZZ Resection of Anus, Open Approach (ICD-10-PCS; 2018-08-29)
PROC: 0D1M0Z4 Bypass Descending Colon to Cutaneous, Open Approach (ICD-10-PCS; 2018-08-29)
PROC: 0DTP0ZZ Resection of Rectum, Open Approach (ICD-10-PCS; principal; 2018-08-29 08:00)
PROC: 3E0436Z Introduction of Nutritional Substance into Central Vein, Percutaneous Approach (ICD-10-PCS; 2018-08-30)
PROC: 30233N1 Transfusion of Nonautologous Red Blood Cells into Peripheral Vein, Percutaneous Approach (ICD-10-PCS; 2018-08-30)
PROC: 02HV33Z Insertion of Infusion Device into Superior Vena Cava, Percutaneous Approach (ICD-10-PCS; 2018-09-04)
PROC: 5A1D70Z Performance of Urinary Filtration, Intermittent, Less than 6 Hours Per Day (ICD-10-PCS; 2018-09-04)
PROC: 0JH63XZ Insertion of Tunneled Vascular Access Device into Chest Subcutaneous Tissue and Fascia, Percutaneous Approach (ICD-10-PCS; 2018-09-10)
PROC: 02H633Z Insertion of Infusion Device into Right Atrium, Percutaneous Approach (ICD-10-PCS; 2018-09-10)
PROC: 031809F Bypass Left Brachial Artery to Lower Arm Vein with Autologous Venous Tissue, Open Approach (ICD-10-PCS; 2018-09-12)
DX: C20 Malignant neoplasm of rectum (principal); N18.6 End stage renal disease; N17.0 Acute kidney failure with tubular necrosis; I12.0 Hypertensive chronic kidney disease with stage 5 chronic kidney disease or end stage renal disease; E87.2 Acidosis; E46 Unspecified protein-calorie malnutrition; Z68.1 Body mass index [BMI] 19.9 or less, adult; E11.22 Type 2 diabetes mellitus with diabetic chronic kidney disease; R53.81 Other malaise; N99.0 Postprocedural (acute) (chronic) kidney failure; D63.8 Anemia in other chronic diseases classified elsewhere; Z92.21 Personal history of antineoplastic chemotherapy; Z92.3 Personal history of irradiation; D50.9 Iron deficiency anemia, unspecified; E83.51 Hypocalcemia; R00.0 Tachycardia, unspecified; E87.5 Hyperkalemia; E83.39 Other disorders of phosphorus metabolism; Z88.5 Allergy status to narcotic agent; Z88.6 Allergy status to analgesic agent; Z88.1 Allergy status to other antibiotic agents; Z91.041 Radiographic dye allergy status
CPT/HCPCS: 36415; 36556; 36558; 71045; 71046; 74470; 76937; 77001; 80048; 80053; 82948; 83735; 84100; 84132; 85025; 85045; 85610; 86704; 86705; 86706; 86850; 86870; 86880; 86900; 86905; 86920; 86922; 87340; 88309; 90962; 93005; 93306; 96366; 96372; 97139; 99001; 99152; 99153; C1750; C1769; J0610; J1100; J1200; J1642; J1644; J1750; J1756; J1956; J2001; J2250; J2405; J3370; J3480; J7030; J7040; J7050; J7070; J7799; P9016; Q4081

== ENCOUNTER → 2022-02-16 | Outpatient (CLI) | payer MEDICARE ==
[~2022-02-16] MED LIST changes: +LEVAQUIN500 MG PO; +TYLENOL WITH C1 EACH PO
== END ==
LOC: CT 10:08
PROVIDERS: ATTEND Surgery
DX: R19.09 Other intra-abdominal and pelvic swelling, mass and lump (principal)
CPT/HCPCS: 74176